=== PATIENT | female | born 1965 | race Caucasian/White ===

== ENCOUNTER → 2018-04-20 14:17 | Outpatient (CLI) | payer BC, SELFPAY ==
[2017-01-13 06:09] VITALS: BMI 19.8
[2018-04-26 13:20] LABS: HPV APTIMA, High Risk Negative (Negative)
--- OUTSIDE RECORDS SUMMARY | 2018-06-25 09:27 | XMS RPT_ITS ---
:1965 Author Organization OHIP Support Name Relationship Address Phone LORENZA CORNELL Unavailable [address] + [place] [address] UE Unavailable Unavailable Unavailable CORNELLLORENZA Unavailable [address] + [place] [address] CORNELLLORENZA Unavailable [address] [place] [address] NOT GIVEN Unavailable Unavailable Unavailable CORNELLLORENZA Unavailable [address] + [place], [place] [phone] LORENZA CORNELL Unavailable [address] Unavailable [place], [place] [phone] NOT GIVEN Unavailable Unavailable Unavailable CORNELLLORENZA Unavailable [address] + [place], [place] [phone] CORNELL LORENZA Unavailable [address] Unavailable [place], [place] [phone] NOT GIVEN Unavailable Unavailable Unavailable CORNELLLORENZA Unavailable [address] + [place], [place] [phone] CORNELL LORENZA Unavailable [address] Unavailable [place] [phone] NOT GIVEN Unavailable Unavailable Unavailable KRAIG LORENZA Unavailable [address] + [place], [place] [phone] CORNELL LORENZA Unavailable [address] Unavailable [place], [place] [phone] NOT GIVEN Unavailable Unavailable Unavailable Care Team Providers Name Role Phone DR LORENZA CORNELL Admitting Unavailable DR LORENZA CORNELL Attending Unavailable DR LORENZA CORNELL Primary Care Unavailable RHODA CORNELL MD Consulting Unavailable PROVIDER, UNKNOWN Consulting Unavailable PROVIDER, UNKNOWN Consulting Unavailable PROVIDER, UNKNOWN Consulting Unavailable DR LORENZA CORNELL Admitting Unavailable DR LORENZA CORNELL Attending Unavailable DR LORENZA CORNELL Primary Care Unavailable RHODA CORNELL MD Consulting Unavailable PROVIDER, UNKNOWN Consulting Unavailable PROVIDER, UNKNOWN Consulting Unavailable PROVIDER, UNKNOWN Consulting Unavailable CHELITA, DOUG PAC Admitting Unavailable CHELITA, DOUG PAC Attending Unavailable CHELITA, DOGU PAC Primary Care Unavailable RHODA CORNELL MD Consulting Unavailable PROVIDER, UNKNOWN Consulting Unavailable PROVIDER, UNKNOWN Consulting Unavailable PROVIDER, UNKNOWN Consulting Unavailable CHELITA, DOUG PAC Admitting Unavailable CHELITA, DOUG PAC Attending Unavailable CHELITA, DOUG PAC Primary Care Unavailable RHODA CORNELL MD Consulting Unavailable PROVIDER, UNKNOWN Consulting Unavailable PROVIDER, UNKNOWN Consulting Unavailable PROVIDER, UNKNOWN Consulting Unavailable HEATHER MANNING [facility] Admitting [facility]ending Unavailable HEATHER MANNING SUMMER Primary Care Unavailable RHODA CORNELL MD Consulting Unavailable PROVIDER, UNKNOWN Consulting Unavailable PROVIDER, UNKNOWN Consulting Unavailable PROVIDER, UNKNOWN Consulting Unavailable Kanwal Antoine Attending Unavailable PROBLEMS PROBLEMS DATE TYPE CONDITION / CODE ATTENDING STATUS SOURCE 04/26/2018 Unknown Z12.4 - Rosalinda Antoine Encounter for [facility] screening for Hospital malignant Repository neoplasm of cervix / Z12.4(ICD-10) 01/18/2018 Admitting Strain of left CHELITAPERIDOUG Active Eulalio Pomerene Diagnosis [facility] and tendon, Repository initial encounter / Z78952R(ICD-10) 01/18/2018 Principle Strain of left CHELITA, DOUG Active Eulalio Pomerene Diagnosis [facility] and tendon, Repository initial encounter / K56106J(ICD-10) PROCEDURES PROCEDURES No Procedure Records FoundRESULTS RESULTS PAP IG HPV APTIMA Collected: 04/20/2018 Status: F Source: RANDA [birth year] 10:00 AM [facility] REPOSITORY Order Comment: CYTOLOGY INFORMATION: - CLINICAL INFORMATION: - DATE LMP/MENOPAUSE: MENOPAUSE - COLLECTION VIAL: Thin Prep Vial - SUPERVISOR CONTINUOUS WELD PIPE MILL SOURCE: CERVICAL/ENDOCERVICAL - COLLECTION TECHNIQUE: BRUSH/SPATULA Specimen Comment: [id number] Specimen Comment: Source.............Cervix;Endocervix Specimen Comment: Other..............Post Menopausal Specimen Comment: No. of containers..01 ThinPrep Vial TYPE CODE TESTS RESULT OUT OF RANGE REFERENCE UNITS LAB L7400.0800 . Normal DIAGN Comment Result Comment: UNSATISFACTORY FOR EVALUATION. LAB L7400.0900 . Normal ADEQ Comment Result Comment: Specimen processed and examined but unsatisfactory for evaluation of epithelial abnormality because of insufficient cellularity. Specimen processed and examined, but unsatisfactory for evaluation of epithelial abnormality because of excessive lubricant. LAB L7400.1300 . Normal RECOMM Comment Result Comment: Suggest follow up as clinically appropriate. LAB L7400.1400 . Normal PERFORM Comment Result Comment: Rosibel Huff, Stoker Installation Mechanic (ASCP) LAB L7400.1500 . Normal QC Comment REV Result Comment: Jeannine Wolf, Supervisory Stoker Installation Mechanic (ASC) LAB L7400.2575 . Normal TEST METHOD Comment Result Comment: This liquid based ThinPrep(R) pap test was screened with the use of an image guided system. LAB L7400.2600 . Normal . COMM LAB L7400.2700 . Normal PAPSMR Comment Result Comment: The Pap smear is a screening test designed to aid in the detection of premalignant and malignant conditions of the uterine cervix. It is not a diagnostic procedure and should not be used as the sole means of detecting cervical cancer. Both false-positive and false-negative reports do occur. LAB L7400.2760 Negative Normal HPV APTIMA, Negative HR Result Comment: This test detects fourteen high-risk HPV types (16/18/31/33/35/39/45/ 51/52/56/58/59/66/68) without differentiation. Performed at: - [facility] [id number] Fur Finisher Tailor: Yessica Nova MD, Phone: [phone] Performed at: = - [facility] [address] [id number] Fur Finisher Tailor: Yessica Nova MD, Phone: [phone] Performed By: #### L7400.0280 #### [facility] (refer to report for specific site) refer to report for address and phone number MAMM DIGITAL LT SPOT Observed: 03/07/2018 Status: F Source: EULALIO MORGAN 8:35 AM [place] [address] Patient: KRAIG BATSHEVA JeffersMeghann Phone#: : 1965 Age: 52 Gender: F Pt. Type: Out Account: [id number] Location: Ordering: [facility] Exam Date: 03/07/2018/8:22 Family Phys: RHODA CORNELL Charge Code: [id number] Physician: [place] Order #: [id number] DLP Dose#: PROCEDURE: MAMM LT SPOT/MAG UNILAT DIGITAL WITH CAD COMPARISON: [facility], BILAT SCREENING, 10/20/2016, 11:05. [facility], BILAT SCREENING, 03/07/2018, 8:06. INDICATIONS: Abnormal mammogram BREAST COMPOSITION: Extremely dense, which may lower the sensitivity of mammography (>75% glandular). FINDINGS: DIAGNOSTIC CATEGORY 3--PROBABLY BENIGN FINDING. THE FOLLOWING FINDING(S) HAS A HIGH PROBABILITY OF A BENIGN ETIOLOGY: LEFT BREAST: FOCAL CALCIFICATIONS, characterized by coarse- heterogeneous mildly suspicious morphology, posterior depth, 3 o'clock position, and <5 in number, new from prior. RECOMMENDATIONS: SIX MONTH FOLLOW-UP DIAGNOSTIC MAMMOGRAM: LEFT BREAST. PLEASE NOTE: A NORMAL MAMMOGRAM DOES NOT EXCLUDE THE POSSIBILITY OF BREAST CANCER. A CLINICALLY SUSPICIOUS PALPABLE LUMP SHOULD BE BIOPSIED. THIS FACILITY UTILIZES A REMINDER SYSTEM TO ENSURE THAT ALL PATIENTS RECEIVE REMINDER LETTERS FOR APPOINTMENTS. THIS INCLUDES REMINDERS FOR ROUTINE MAMMOGRAMS, DIAGNOSITC MAMMOGRAMS, OR OTHER BREAST IMAGING INTERVENTIONS WHEN APPROPRIATE. THIS PATIENT WILL BE PLACED IN THE APPROPRIATE REMINDER SYSTEM. Dictated by: Destiny Zuñiga MD on 03/07/2018 at 11:20 Approved by: Destiny Zuñiga MD on 03/07/2018 at 14:13 MAMM DIGITAL BILAT Observed: 03/07/2018 Status: F Source: EULALIO MATT SCREEN 8:21 AM [place] [address] Patient: BATSHEVA CORNELL Phone#: : 1965 Age: 52 Gender: F Pt. Type: Out Account: [id number] Location: Ordering: [facility] Exam Date: 03/07/2018/8:06 Family Phys: RHODA CORNELL Charge Code: [id number] Physician: [place] Order #: [id number] DLP Dose#: PROCEDURE: MAMM BILAT DIGITAL SCREENING WITH CAD COMPARISON: [facility], BILAT SCREENING, 10/20/2016, 11:05. [facility], LT SPOT/MAG DIGITAL, 10/20/2016, 16:30. INDICATIONS: Screening BREAST COMPOSITION: Extremely dense, which may lower the sensitivity of mammography (>75% glandular). FINDINGS: DIAGNOSTIC CATEGORY 0--INCOMPLETE ASSESSMENT: NEED ADDITIONAL IMAGING EVALUATION. RIGHT BREAST: No significant suspicious finding. No significant change has occurred. LEFT BREAST: FOCAL CALCIFICATIONS, characterized by uncertain morphology, posterior depth, 3 o'clock position, and 5-10 in number, new from prior. RECOMMENDATIONS: ADDITIONAL MAMMOGRAPHIC VIEWS REQUIRED: LEFT BREAST. We will call the patient back for additional views and issue an addendum report. PLEASE NOTE: A NORMAL MAMMOGRAM DOES NOT EXCLUDE THE POSSIBILITY OF BREAST CANCER. A CLINICALLY SUSPICIOUS PALPABLE LUMP SHOULD BE BIOPSIED. THIS FACILITY UTILIZES A REMINDER SYSTEM TO ENSURE THAT ALL PATIENTS RECEIVE REMINDER LETTERS FOR APPOINTMENTS. THIS INCLUDES REMINDERS FOR ROUTINE MAMMOGRAMS, DIAGNOSITC MAMMOGRAMS, OR OTHER BREAST IMAGING INTERVENTIONS WHEN APPROPRIATE. THIS PATIENT WILL BE PLACED IN THE APPROPRIATE REMINDER SYSTEM. Dictated by: Destiny Zuñiga MD on 03/07/2018 at 11:19 Approved by: Destiny Zuñiga MD on 03/07/2018 at 11:19 FOOT COMPLETE RT Observed: 11/09/2017 Status: F Source: [facility] 7:13 AM [place] [address] Patient: BATSHEVA CORNELL Phone#: : 1965 Age: 52 Gender: F Pt. Type: Out Account: [id number] Location: Ordering: LORENZA CORNELL Exam Date: 11/09/2017/7:04 Family Phys: RHODA CORNELL Charge Code: [id number] Physician: [place] Order #: [id number] DLP Dose#: PROCEDURE: X-RAY FOOT RT COMPLETE MIN 3 VIEWS COMPARISON: None. INDICATIONS: Pain FINDINGS: BONES: Normal. No significant arthropathy or acute abnormality. SOFT TISSUES: Negative. No visible soft tissue swelling. EFFUSION: None visible. OTHER: Negative. CONCLUSION: No acute disease. Dictated by: Jenni Mcpherson MD on 11/09/2017 at 15:14 Approved by: Jenni Mcpherson MD on 11/09/2017 at 15:14 ALLERGIES ALLERGIES DATE TYPE / CODE NAME / CODE REACTION SEVERITY SOURCE 01/07/2017 Drug Sulfa Hives Unknown [facility] All[facility]/4160 (Sulfonamide Hospital 06040(SNOMED Antibiotics)/ Repository CT) [id number](RX NORM) 01/07/2017 Drug phenobarbital Swelling Unknown [facility] Allergy/4160 /[id number](R Hospital 92822(SNOMED XNORM) Repository CT) 01/07/2017 Drug prochlorperaz Other Unknown [facility] Allergy/4160 ine/[id number] Hospital 82680(SNOMED 8(RXNORM) Repository CT) 01/07/2017 Drug atropine/F006 Swelling Unknown [facility] Allergy/4160 222117(RXNORM [facility](SNOMED ) Repository CT) 01/07/2017 Drug hyoscyamine/F Swelling Unknown [facility] Allergy/4160 464361551(RXN Hospital 08004(SNOMED ORM) Repository CT) 01/07/2017 Drug scopolamine/F Swelling Unknown [facility] Allergy/4160 991035531([facility](SNOMED ORM) Repository CT) 01/07/2017 Drug clarithromyci Nausea Unknown [facility] Allergy/4160 n/[id number]( Hospital [address]2529(SNOMED RXNORM) Repository CT) Drug BIAXIN/929294 Moderate Eulalio Pomerene Allergy/4160 03(RXNORM) ([facility] [address](SNOMED Modifier) Repository CT) (Qualifier Value) Drug COMPAZINE/000 Moderate Eulalio Pomerene Allergy/4160 38545(RXNORM) ([place] [address](SNOMED Modifier) Repository CT) (Qualifier Value) ENCOUNTERS ENCOUNTERS ADMIT/DISCHARGE ACCOUNT ADMITTING ENCOUNTER LOCATION SOURCE NUMBER CLASS 04/20/2018 [id number] Ambulatory [facility] 0 [facility] ing:[facility] Repository 03/07/2018/ [id number] HEATHER MANNING Ambulatory [address] Repository 02/19/2018 [id number] CHELITA, Ambulatory [facility] Repository 01/18/2018/ [id number] CHELITA, Ambulatory [address] Repository 01/14/2018/ [id number] DR LORENZA CORNELL Ambulatory [address] Repository 11/09/2017/ [id number] DR LORENZA CORNELL Ambulatory [address] Repository PAYERS PAYERS ENCOUNTER GUARANTOR PAYER SUBSCRIBER SOURCE 04/20/2018 Batsheva [id number] Primary LORENZA [address] Insurance:[address], Number: [facility] [place] [address]Erw: [id number] Repository Date:[id number] () [address], [place] [address]XQ: 04/20/2018 Secondary NOT GIVENUNK [facility] Insurance:SELF PAY [facility] Number: Effective Repository Date:2018-04-20 03/07/2018 BATSHEVA MORFINOB: Primary Insurance:RESHMA LORENZA Agustín MORFINOB: Eulalio Pierretyson [id number] [address] [id number] [place] [address], Number: [address] [place] [address], Repository [place] [id number] [place] [id number]: Date:Plan Name:B2P [address] [place] [address]) [id number]: 02/19/2018 BATSHEVA KRUEGER: Primary Insurance:RESHMA Randolph NAVJOTOB: Eulalio Pierretyson [id number] [address] [id number] [address], Number: [address] [place] [address], Repository [place] [id number] [place] [id number]: Date:Plan Name:B2P [address]PA, [place] () [id number]: 01/18/2018 BATSHEVAGiovanny ENRIQUEZASHOB: Primary BATSHEVA MORFINOB: Eulalio Matt [id number] Insurance:ANTHKAROLINA JUSTICE [id number] [facility] [address] [employer]ER[address], [address], Repository [place] Number: [place] [id number]: [id number] Date:Plan Name:B2 () 01/14/2018 BATSHEVA Aury NAVJOTOB: Primary Insurance:RESHMA ENRIQUEZDDOB: Eulalio Matt [address] [id number] [facility] OUTPATIENTPolicy [address], Number: [address], Repository [place] [id number] [place] [id number]: Date:Plan Name:B2P [address]IGHTFZU, [place] () [id number]: 11/09/2017 BATSHEVA A NAVJOTOB: Primary Insurance:RESHMA ENRIQUEZDDOB: Eulalio Matt [address] [facility] [id number] [facility] OUTPATIENTPolic[address], Number: [address], Repository [place] [id number] [place] [id number]: Date:Plan Name:B2P [address]ILZVHOP, [place] () [id number]:
== END ==
PROVIDERS: Visit Provider Obstetrics & Gynecology
DX: Z12.4 Encounter for screening for malignant neoplasm of cervix (principal)
CPT/HCPCS: 87624; 88175; G0145

== ENCOUNTER → 2019-11-06 09:20 | Outpatient (CLI) | payer BC, SELFPAY ==
[2019-11-19 14:49] LABS: HPV APTIMA, High Risk POSITIVE; HPV Genotype 16, Aptima Negative; HPV Genotype 18,45 Aptima Negative
== END ==
PROVIDERS: Visit Provider Obstetrics & Gynecology
DX: Z12.4 Encounter for screening for malignant neoplasm of cervix (principal)
CPT/HCPCS: 87624; 88175; G0145

== ENCOUNTER → 2022-05-31 | Outpatient (CLI) | payer SELFPAY ==
[2022-06-04 13:32] LABS: HPV APTIMA, High Risk Negative (Negative)
== END | disposition home or self-care (01) ==
PROVIDERS: Visit Provider Student in an Organized Health Care Education/Training Program
DX: Z12.4 Encounter for screening for malignant neoplasm of cervix (principal)
CPT/HCPCS: 87624; 88175; G0145

== ENCOUNTER → 2022-06-24 | Outpatient (CLI) | payer SELFPAY ==
--- NOTE | 2022-06-24 | IMM_PTH ---
PATIENT: BATSHEVA CORNELL LOC: [facility] U#:[id number] AGE/SX: 56/F ROOM: RE06/24/[address]: Dr. Florencio Guy MD : 1965 BED: DIS: 06/24/2022 SPEC #: [id number] RECD: 06/28/22 12:36 STATUS: DAVID RERichard #: [id number] EMEKA: 06/24/22 00:[address]: Florencio Guy DEPT: IMMUNOHISTOCHEMISTRY RECD BY: Julisa Craft ENTERED: 06/28/22 12:38 SP TYPE: IMMUNO OTHR DR: MACARENA Pablo Tissues: A - Left breast, NOS Procedures: CALPONIN-1 (add) CK5-6 (add) CK8 (add) COOPER-2 (add) E-CAD (add) HER2 LENO (add) KI-67 (add) P53 (add) NE (add) P40 (add) ER (initial) PHYSICIAN & [address] [address] SPECIMEN INFORMATION: Tissue Source: A ? Left breast at 12 o?clock Clinical Info: Abnormal mammogram Specimen Number: [id number] CPT code: 63330, 54599 x7, 36407 x3 METHODOLOGY: Deparaffinized sections of prefer/formalin-fixed tissue or PAP/DQ stained slides are incubated with monoclonal/polyclonal antibodies/oligonucleotide probes. Localization is made via biotin free immunoperoxidase method. Appropriate controls are performed and reacted as expected. Results on target cell population are indicated in the following table: RESULTS: ANTIBODY / CLONE RESULT P53 (DO-7) positive, 85% Ki-67 (30-9) positive, 70% CK8 (50jhqlG70) positive CK5-6 (D5 & 1684) negative Calponin-1 (SS341Y) negative P40 (BC28) negative E-Cad (ECH-6) positive COOPER-2 (SP21) positive MORPHOMETRIC ANALYSIS ER (clone 6F11) 0% NE (clone 16/1E2) 0% Her-2Neu (clone CB11) 3+ The prognostic test for HER2 is performed on formalin-fixed paraffin embedded tissue. A 3+ (positive) staining pattern is defined as intense, homogeneous, complete, circumferential membranous staining in >10% of contiguous tumor cells. A similar weak (2+) staining pattern is interpreted as equivocal. DELBERT follow-up testing is recommended for all equivocal cases. Positivity/negativity for ER/NE is reported if > or < 1% of the tumor cells are immuno- reactive, respectively. The ASCO/CAP criteria is used for scoring. Reference: Journal of Clinical Oncology, 2013; 31:8120-4709 & 2010; 16:4819-8841. Duration of fixation: 75 Hrs; Sample Adequate: Yes. These assays have not been validated on decalcified tissues. Results should be interpreted with caution given the likelihood of false negativity on decalcified specimens. These tests were developed and their performance characteristics determined by [facility]. They may not have been cleared or approved by the U.S. Food and Drug Administration. The FDA has determined that such clearance or approval is not necessary. The above immunohistochemical/dualISH markers are ordered and reviewed by the Pathologist. INTERPRETATION: A. 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 Negative for estrogen receptors (unfavorable prognostic indicator). Negative for progesterone receptors (unfavorable prognostic indicator). Positive for overexpression of JNC9zxl. AM:ash 06/29/2022
--- NOTE | 2022-06-24 | BRBX_PTH ---
PATIENT: BATSHEVA CORNELL LOC: [facility]#:[id number] AGE/SX: 56/F ROOM: RE06/24/[address]: Dr. Florencio Guy MD : 1965 BED: DIS: 06/24/2022 SPEC #: [id number] RECD: 06/24/22 16:32 STATUS: DAVID RON #: [id number] EMEKA: 06/24/22 00:[address]: Florencio Guy DEPT: SURGICAL PATHOLOGY RECD BY: Tre Becerra ENTERED: 06/25/22 08:18 SP TYPE: BREAST BX OTHR DR: MACARENA Pablo Tissues: A - Left breast, NOS B - Left breast, NOS Procedures: Surgery Specimen Level IV HEADER OPERATION: Ultrasound-guided needle core biopsy left breast 12 o?clock and 9 o?clock position PRE-OP DIAGNOSIS: Abnormal mammogram TISSUE SUBMITTED: A ? Left breast tissue 12 o?clock position, B - Left breast tissue 9 o?clock position ISCHEMIC TIME: <1 minute FIXATION TIME: 75 hours MICROSCOPIC DIAGNOSIS A. Left breast at 12 o?clock, needle core biopsy: Invasive ductal carcinoma with the following characteristics: Nuclear grade ? 3 Maximal length ? 9.5 mm See comment. B. Left breast at 9 o?clock, needle core biopsy: Invasive ductal carcinoma with the following characteristics: Nuclear grade ? 3 Maximal length ? 11.0 mm AM:ash 06/28/2022 COMMENT A. Immunohistochemistry ([id number]) supports the above diagnosis. Case has been reviewed in consultation with Dr. So who concurs with the above diagnosis. IDC:SJ MICROSCOPIC DESCRIPTION Slides are reviewed. GROSS DESCRIPTION A - Received in fixative is one container labeled with the patient's name and designated left breast tissue 12 o'clock position. The specimen consists of multiple elongated fragments of wu-yellow fibroadipose tissue that in aggregate measure 1.0 x 0.5 x 0.1 cm. The entire specimen is submitted in one cassette. B - Received in fixative is one container labeled with the patient's name and designated left breast tissue 9 o'clock position. The specimen consists of one elongated fragment of wu-yellow fibroadipose tissue measuring 1.5 cm in length and 0.1 cm in diameter. The entire specimen is submitted in one cassette. / SJ:rg 06/25/2022 TC:0 CPT: 23021 x2
== END | disposition home or self-care (01) ==
PROVIDERS: PCP Physician Assistant; Referring Provider Surgery; Visit Provider Surgery
DX: R92.8 Other abnormal and inconclusive findings on diagnostic imaging of breast (principal)
CPT/HCPCS: 88305; 88341; 88342

== ENCOUNTER → 2022-06-29 | Outpatient (CLI) | payer SELFPAY ==
--- NOTE | 2022-06-29 10:58 | MRI_ITS ---
STUDY: BILATERAL BREAST MR WITHOUT AND WITH CONTRAST REASON FOR EXAM: Female, 56 years old. Abnormal left diagnostic mammogram and left breast ultrasound. TECHNIQUE: Multi-sequence multi-echo imaging of both breasts was performed with a dedicated breast coil. T1-weighted and T2-weighted images were performed before the administration of contrast. T1-weighted images were also performed after the intravenous administration of 13 mL of Clariscan contrast. COMPARISON: Diagnostic left mammogram dated June 23, 2022 and left breast ultrasound dated June 23, 2022. FINDINGS: RIGHT BREAST: Scattered fibroglandular densities with no background enhancement. No abnormal enhancing masses or areas of non-mass enhancement in the right breast. LEFT BREAST: Scattered background enhancement. Irregular enhancing mass in the upper medial aspect of the left breast measuring approximately 4.3 cm x 6 cm x 3 cm. Mass extends to the midportion of the medial aspect of the breast. 2 small enhancing masses beneath the major area of enhancement about 2 cm from the mass. Multiple small enhancing masses in the subareolar region, one of which is in the lateral aspect of the left breast measuring 1.4 cm x 8 mm x 1.4 centimeters. This lesion is also highly suspicious for tumor involvement. These findings are compatible with probable multicentric tumor. No enlarged or abnormal lymph nodes. No abnormality in the visualized regions of the chest or liver. MRI/Breast Bilateral W/O and W IMPRESSION: Multiple enhancing masses in the left breast in different quadrants compatible with multicentric tumor involvement. Right breast shows no abnormality and there is no adenopathy. CATEGORY: BIRADS Category 5: Highly Suggestive of Malignancy - Appropriate Action Should Be Taken. A letter regarding these results will be sent to the patient by the facility within 30 days. Electronically Signed: Kendall Torres, at 10:55 EDT ,
== END | disposition home or self-care (01) ==
PROVIDERS: PCP Physician Assistant; Referring Provider Surgery; Visit Provider Surgery
DX: N63.22 Unspecified lump in the left breast, upper inner quadrant (principal); R92.2 Inconclusive mammogram
CPT/HCPCS: 77049; A9575; A4216; C8908

== ENCOUNTER → 2022-07-02 | Outpatient (CLI) | payer SELFPAY ==
--- NOTE | 2022-07-02 09:19 | US_ITS ---
STUDY: SUPERFICIAL ULTRASOUND - LEFT AXILLARY REGION. REASON FOR EXAM: Female, 56 years old. STAGING LEFT BREAST CANCER -- LEFT AXILLA TECHNIQUE: A superficial ultrasound was performed with real-time and static mujica-scale imaging. COMPARISON: None. FINDINGS: Multiple lymph nodes are seen in the left axilla. All the lymph nodes have a central echogenic hilum with hypoechoic cortex suggestive of benign anatomical appearance. The largest lymph node measures 2.1 cm x 1.4 cm x 1.6 cm. With the patient''s history of left breast carcinoma, biopsy may be indicated. US/Ext Non Vasc Limited/Soft Tiss IMPRESSION: Multiple lymph nodes in the left axillary region. The larger measures 2.1 cm x 1.4 cm x 0.6 cm. Biopsy is recommended with a history of a left breast carcinoma. Electronically Signed: Tashi Ferguson MD at 14:54 EDT ,
== END | disposition home or self-care (01) ==
PROVIDERS: PCP Physician Assistant; Visit Provider Internal Medicine Hematology & Oncology
DX: C50.912 Malignant neoplasm of unspecified site of left female breast (principal)
CPT/HCPCS: 76882

== ENCOUNTER → 2022-07-06 | Outpatient (CLI) | payer SELFPAY ==
--- NOTE | 2022-07-06 | LYMN_PTH ---
PATIENT: BATSHEVA CORNELL [facility] U#:[id number] AGE/SX: 56/F ROOM: RE07/06/[address]: Dr. Florencio Guy MD : 1965 BED: DIS: 07/06/2022 SPEC #: [id number] RECD: 07/06/22 15:24 STATUS: DAVID RON #: [id number] EMEKA: 07/06/22 00:[address]: Florencio Guy DEPT: SURGICAL PATHOLOGY RECD BY: Yury Aguila ENTERED: 07/07/22 09:21 SP TYPE: LYMPH NODE OTHR DR: MACARENA Pablo Tissues: LYMPH NODE BIOPSY Procedures: Surgery Specimen Level IV HEADER OPERATION: Left axillary lymph node biopsy PRE-OP DIAGNOSIS: Enlarged left axillary lymph node TISSUE SUBMITTED: Left axillary lymph node tissue MICROSCOPIC DIAGNOSIS Left axillary lymph node tissue, core biopsy: Lymph node tissue, negative for metastatic carcinoma. See comment. SJ:ash 07/08/2022 COMMENT Immunohistochemistry ([id number]) supports the above diagnosis. Please make reference to previous specimen ([id number]) left breast at 12 o?clock, needle core biopsy with diagnosis of ?invasive ductal carcinoma? and left breast at 9 o?clock, needle core biopsy with diagnosis of ?invasive ductal carcinoma.? MICROSCOPIC DESCRIPTION Slides are reviewed. GROSS DESCRIPTION Received in saline and then postfixed is one container labeled with the patient's name and designated left axillary lymph node. The specimen consists of multiple elongated fragments of wu soft tissue that in aggregate measure 1.0 x 0.5 x 0.1 cm. The specimen is totally submitted in one cassette. / MERT:ash 07/07/2022 TC:5 CPT: 16648
--- NOTE | 2022-07-06 | IMM_PTH ---
PATIENT: BATSHEVA CORNELL LOC: [facility] U#:[id number] AGE/SX: 56/F ROOM: RE07/06/[address]: Dr. Florencio Guy MD : [id number] BED: DIS: 07/06/2022 SPEC #: [id number] RECD: 07/08/22 13:28 STATUS: JHONYOsmel RERichard #: [id number] EMEKA: 07/06/22 00:[address]: Florencio Guy DEPT: IMMUNOHISTOCHEMISTRY RECD BY: Julisa Craft ENTERED: 07/08/22 13:29 SP TYPE: IMMUNO OTHR DR: MACARENA Pablo Tissues: Axillary lymph node, NOS Procedures: CK7 (add) Pankeratin (initial) PHYSICIAN & INSTITUTION [place] [id number] SPECIMEN INFORMATION: Tissue Source: Left axillary lymph node tissue Clinical Info: Enlarged left axillary lymph node Specimen Number: [id number] CPT code: 73239, 67155 METHODOLOGY: Deparaffinized sections of prefer/formalin-fixed tissue or PAP/DQ stained slides are incubated with monoclonal/polyclonal antibodies/oligonucleotide probes. Localization is made via biotin free immunoperoxidase method. Appropriate controls are performed and reacted as expected. Results on target cell population are indicated in the following table: RESULTS: ANTIBODY / CLONE RESULT AE1-3 (AE1/AE3/PCK26) negative CK7 (OV-TL12/30) negative These tests were developed and their performance characteristics determined by [facility]. They may not have been cleared or approved by the [place]. Food and Drug Administration. The FDA has determined that such clearance or approval is not necessary. The above immunohistochemical/dualISH markers are ordered and reviewed by the Pathologist. INTERPRETATION: Left axillary lymph node tissue, biopsy: Lymph node tissue, negative for metastatic carcinoma. MERT:ash 07/09/2022
== END | disposition home or self-care (01) ==
LOC: LABSPEC 16:27
PROVIDERS: PCP Physician Assistant; Referring Provider Surgery; Visit Provider Surgery
DX: R59.9 Enlarged lymph nodes, unspecified (principal)
CPT/HCPCS: 88305; 88341; 88342

== ENCOUNTER 2022-07-09 09:20 | Day surgery (SDC) | payer SELFPAY ==
--- NOTE | 2022-07-06 07:43 | EKG12_ITS ---
Test Reason : PREOP Blood Pressure : / mmHG Vent. Rate : 050 BPM Atrial Rate : 050 BPM P-R Int : 162 ms QRS Dur : 088 ms QT Int : 444 ms P-R-T Axes : 014 049 046 degrees QTc Int : 404 ms Sinus bradycardia with sinus arrhythmia Otherwise normal ECG Confirmed by ML GUEVARA, YULIYA ([id number]), multimedia editor EMELIA KEMP ([id number]) on 07/07/2022 9:56:05 AM Referred By: CUATE Confirmed By:ANDREW BULL MD
[2022-07-09] VITALS (7 sets, daily range): BP systolic 113–136; BP diastolic 76–90; PULSE 57–71; RESP 12–20; TEMP 36.5–36.8; O2SAT 96–100; BMI 20.4
[2022-07-09] MEDS: Lactated Ringers 1,000 ML 15 ML IV (09:50)
--- NOTE | 2022-07-09 10:50 | HP.PCM_ITS ---
History and Physical Date of Admission: 07/09/22 Visit Reasons:?lymph node biopsy Chief Complaint: lymph node biopsy Is patient in pain?: No Allergies atropine [From ] Allergy (Verified 07/06/22 15:11) Swellinghyoscyamine [From ] Allergy (Verified 07/06/22 15:11) Swellingphenobarbital [From ] Allergy (Verified 07/06/22 15:11) Swellingscopolamine [From ] Allergy (Verified 07/06/22 15:11) SwellingSulfa (Sulfonamide Antibiotics) Allergy (Verified 07/06/22 15:11) Hivesclarithromycin [From Biaxin] Adverse Reaction (Verified 07/06/22 15:11) Nauseaprochlorperazine [From Compazine] Adverse Reaction (Verified 07/06/22 15:11) Other Medications aspirin 81 mg tablet,delayed release (Lo-Dose Aspirin) 81 mg PO DAILY 01/07/17 [History Confirmed 07/06/22] calcium carbonate 600 mg calcium (1,500 mg) tablet 600 mg PO DAILY 01/07/17 [History Confirmed 07/06/22] rosuvastatin 5 mg tablet (Crestor) 5 mg PO DAILY 01/07/17 [History Confirmed 07/06/22] cholecalciferol (vitamin D3) 50 mcg (2,000 unit) capsule 50 mcg PO DAILY 06/30/22 [History Confirmed 07/06/22] coenzyme Q10 100 mg capsule (CoQ-10) 100 mg PO DAILY 06/30/22 [History Confirmed 07/06/22] riboflavin (vitamin B2) 100 mg tablet 100 mg PO DAILY 06/30/22 [History Confirmed 07/06/22] dexamethasone 4 mg tablet 4 mg PO DAILY #12 tabs 07/06/22 [Rx Confirmed 07/06/22] lidocaine-prilocaine 2.5 %-2.5 % topical cream 1 applic topical ONCE PRN PORT ACCESS 30 days #30 grams 07/06/22 [Rx Confirmed 07/06/22] ondansetron 8 mg disintegrating tablet 8 mg PO Q8H PRN nausea and vomiting #30 tabs 07/06/22 [Rx Confirmed 07/06/22] PFSH Medical History?(Updated 07/06/22 @ 15:[address] Florencio Guy MD) Abnormal mammogram of left breast Abnormal ultrasound of breast Breast cancer, left Dyslipidemia Encounter for education Herniated disc History of IBS History of stress test Non-smoker PONV (postoperative nausea and vomiting) Post-menopausal Surgical History? History of colonoscopy History of D&C Hx of tubal ligation S/P left breast biopsy Family History? Sister Colon cancer,? Onset Age: 42Mother Heart disease Kidney disease Lupus High cholesterolFather High cholesterol Hypertension Thyroid disorder Heart diseaseBrother Heart diseaseAunt Diabetes ?? ? maternal Social History? household members:? 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 Never smoker alcohol intake:? never substance use type:? does not use HPI HPI HPI: Patient had a bilateral breast MRI extensive multifocal extensive disease of the left breast.? She also had a soft tissue ultrasound of the left axilla.? She presents today because the soft tissue ultrasound of July 02 demonstrates multiple lymph nodes of the left axilla with the largest being 2.1 cm.? Biopsy was recommended. [employer] Coordinator Required: No Is patient in pain?: No Allergies atropine [From ] Allergy (Verified 06/29/22 14:51) Swellinghyoscyamine [From ] Allergy (Verified 06/29/22 14:51) Swellingphenobarbital [From ] Allergy (Verified 06/29/22 14:51) Swellingscopolamine [From ] Allergy (Verified 06/29/22 14:51) SwellingSulfa (Sulfonamide Antibiotics) Allergy (Verified 06/29/22 14:51) Hivesclarithromycin [From Biaxin] Adverse Reaction (Verified 06/29/22 14:51) Nauseaprochlorperazine [From Compazine] Adverse Reaction (Verified 06/29/22 14:51) Other Medications aspirin 81 mg tablet,delayed release (Lo-Dose Aspirin) 81 mg PO DAILY 01/07/17 [History Confirmed 06/29/22] calcium carbonate 600 mg calcium (1,500 mg) tablet 600 mg PO DAILY 01/07/17 [History Confirmed 06/29/22] rosuvastatin 5 mg tablet (Crestor) 5 mg PO DAILY 01/07/17 [History Confirmed 06/29/22] PFSH Medical History?(Updated 06/29/22 @ 15:18 by Kathia Booth) Breast cancer Surgical History? Hx of tubal ligation S/P left breast biopsy Family History? Sister Heart disease High cholesterol Kidney disease LupusMother Heart disease Kidney disease Lupus High cholesterolFather High cholesterol Hypertension Thyroid disorder Social History? Smoking Status:? Never smoker HPI HPI HPI: 56-year-old female returns today to discuss left breast needle core biopsy 12 o'clock position and 10 o'clock position.? As noted below both biopsy sites demonstrated invasive ductal carcinoma nuclear grade 3.? Estrogen receptor negative.? Progesterone receptor negative.? HER2/ayan 3+. MICROSCOPIC DIAGNOSIS A.? Left breast at 12 o?clock, needle core biopsy: ?Invasive ductal carcinoma with the following characteristics: ?? ? Nuclear grade ? 3 ?? ? Maximal length ? 9.5 mm ?See comment.? B.? Left breast at 9 o?clock, needle core biopsy: ?Invasive ductal carcinoma with the following characteristics: ?? ? Nuclear grade ? 3 ?? ? Maximal length ? 11.0 mm RESULTS:?ANTIBODY / CLONE ? RESULT P53? (DO-7) ? positive, 85% Ki-67? (30-9)? positive, 70% CK8? ([id number])? positive CK5-6? (D5 & 1684) ? ? negative Calponin-1 (QH490J) ? ? ? negative P40? (BC28) ? negative E-Cad? (ECH-6) ? ? ? positive COOPER-2? (SP21) ? positive ? MORPHOMETRIC ANALYSIS? ? ER (clone [id number])? 0% W[place] (clone 16/1E2) ? 0% Her-2Neu (clone CB11)? 3+ My previous note of June 24, 2022 represents the following Visit Reasons:?Birads 5 Left Breast Chief Complaint: birads 5 left breast/b Is patient in pain?: No Allergies atropine [From ] Allergy (Verified 06/24/22 15:27) Swellinghyoscyamine [From ] Allergy (Verified 06/24/22 15:27) Swellingphenobarbital [From ] Allergy (Verified 06/24/22 15:27) Swellingscopolamine [From ] Allergy (Verified 06/24/22 15:27) SwellingSulfa (Sulfonamide Antibiotics) Allergy (Verified 06/24/22 15:27) Hivesclarithromycin [From Biaxin] Adverse Reaction (Verified 06/24/22 15:27) Nauseaprochlorperazine [From Compazine] Adverse Reaction (Verified 06/24/22 15:27) Other Medications aspirin 81 mg tablet,delayed release (Lo-Dose Aspirin) 81 mg PO DAILY 01/07/17 [History Confirmed 06/24/22] calcium carbonate 600 mg calcium (1,500 mg) tablet 600 mg PO DAILY 01/07/17 [History Confirmed 01/07/17] rosuvastatin 5 mg tablet (Crestor) 5 mg PO DAILY 01/07/17 [History Confirmed 06/24/22] PFSH Surgical History?(Updated 06/24/22 @ 15:22 by Carina Crystal) Hx of tubal ligation Family History?(Updated 06/24/22 @ 15:25 by Carina Crystal) Sister Heart disease High cholesterol Kidney disease LupusMother Heart disease Kidney disease Lupus High cholesterolFather High cholesterol Hypertension Thyroid disorder Social History? Smoking Status:? Never smoker HPI HPI HPI: 56-year-old female is being referred by Dr. France Luevano for surgical consultation regarding abnormal breast mammogram and ultrasound findings.? Written copy of my surgical consult recommendations will return to her. On May 31, 2022 the patient had her annual gynecologic exam. A0.? Menarche at age 11.? First child was born when she was 22.? She did breast-feed.? No estrogen replacement.? No history of previous breast biopsy.? No family history of breast cancer. She herself is not able to palpate any masses. She otherwise is extraordinarily healthy does physical exercise and workouts almost daily. Most recent previous mammogram was 2020.? Menopause at age 51. Recent clinical breast exam was not remarkable. The patient does have a history of a sister who had colon cancer in her 40s. At [facility] on June 23, 2022 she had bilateral screening mammography.? Interpreted as BI-RADS Category 5 the breast were noted to be very dense.? The right breast was felt to be unremarkable.? The left breast had focal calcifications mid left breast 9 o'clock position.? A four-quadrant left breast ultrasound was performed on June 23, 2022.? At the 12 o'clock position there is an 8 x 7 x 10 mm sized solid nodule with calcifications felt to be suspicious. Left breast solid suspicious nodule 9 o'clock position 28 x 18 x 12 mm with calcifications felt to correlate with the mammographic findings Left breast 12 o'clock position 4 x 3 x 5 mm simple cyst Left breast solid suspicious appearing lesion 9 o'clock position 4 x 7 x 2 mm. Personally reviewed the images.? The mammograms quite dense.? The lesions identified on ultrasound much more dramatic.? There is miss labeling of the ultrasound pictures discussing right radial positioning and this was a left breast ultrasound. ROS General General: No weight change, appetite, fatigue, colon cancer, breast cancer or weakness HEENT HEENT: No difficulty swallowing, eye injury, eye surgery, swollen glands or hoarseness Endo Endocrine: No thyroid disease, diabetes mellitus, thyroid cancer, Hair loss, heat intolerance or cold intolerance Skin Skin: No rash or changing moles Breast Breast: No left breast lump, right breast lump, nipple discharge, breast pain, abnormal mammogram, abnormal US or breast enlargement Musc Musculoskeletal: No back problems, arthritis, rheumatoid arthritis, gout or joint pain Cardio Cardiovascular: No murmur, pacemaker, heart disease, atrial fibrillation, high blood pressure, heart attack, heart stent, palpitations, shortness of breat with exertion or chest pain Psych Psychiatric: No depression, anxiety or hearing voices Resp Respiratory: No shortness of breath, No sleep apnea, No cough, No COPD, No asthma, No emphysema and No wheezing Gastro Gastrointestinal: No abdominal pain, No nausea or vomiting, No diarrhea, No constipation, No blood in stool, No acid reflux, No hemorrhoids, No ulcers, No gallbladder problem and No black,tarry stools Ten Hematologic: No blood thinners, No blood disorders, No bleeding, No anemia and No blood clots Neuro Neurologic: No system reviewed and no additional complaints, except as documented, No as per HPI, No abnormal gait, No abnormal hearing, No abnormal movements, No abnormal speech, No behavioral changes, No burning sensations, No confusion, No convulsions, No disequilibrium, No dizziness, No localized weakness, No frequent falls, No headache(s), No lack of coordination, No loss of vision, No memory loss, No numbness, No other visual disturbances, No radicular pain, No restless legs, No sensory deficit, No syncope, No tingling, No tremor(s), No weakness and No other Exam Const General: cooperative, healthy appearing, comfortable and no acute distress Nutritional Appearance: average body habitus Orientation: alert, awake and oriented x3 HENMT Head: normal to inspection Eyes General: appearance normal, both eyes and all related structures Neck Neck: normal visual inspection Chest Chest palpation & inspection: normal inspection of the chest Other: Right breast: No focal mass.? No nipple discharge.? Diffuse fibrous change particularly in the upper outer quadrant.? No axillary or clavicular adenopathy Left breast: Nondescript fibrous mass 10 o'clock position upper inner left breast periareolar.? No nipple discharge no skin distortion.? Diffuse fibrous change upper outer quadrant left breast.? No axillary or clavicular adenopathy appreciated Resp Effort & Inspection: normal respiratory effort Auscultation: clear to auscultation bilaterally Cardio Rate: regular rate Rhythm: regular rhythm GI Palpation: soft and no hepatosplenomegaly Auscultation: normal bowel sounds Musc Cervical Spine: normal cervical lordosis Skin General: no rashes or lesions noted Neuro General: patient alert, patient awake and patient oriented x3 Cognition: normal cognition Extrem General: no calf tenderness Office Procedures Biopsy Provider Documentation Ultrasound-guided needle core biopsy left breast 12 o'clock position 3 cm Ultrasound-guided needle core biopsy left breast 10 o'clock position +2 cm Timeout informed consent was obtained.? The patient taken the procedure room placed upon the table.? A left shoulder roll was placed.? The left breast was copiously prepped with Betadine.? Under ultrasound guidance what I felt was the 12:00 lesion measuring approximately the 8 x 7 x 10 m size with calcifications in it.? I utilized 1% lidocaine mixed 50-50 with 0.5% Marcaine a total of 6 cc.? Small stab incision was created.? A 14-gauge Monopty needle was advanced to prefire depth.? Pre and post fire films were obtained.? 3 cores were obtained.? A ribbon marking clip was placed at 12 o'clock position.? Pressure was held for hemostasis which was achieved I then inspected the left breast 10 o'clock position rather than the 9 o'clock position identified the sizable irregular mass with microcalcifications at that location.? 1% lidocaine mixed 50-50 with 0.5% Marcaine was used as local anesthetic.? 10 cc was used.? A small stab incision was created.? A 14-gauge Monopty needle was advanced to depth.? A single core was obtained.? A coil clip was placed at this 10 o'clock position.? Pressure was held for hemostasis. Each area was treated with Steri-Strip Telfa OpSite.? She tolerated procedure well no apparent complication.? The specimens upon obtaining them were immediately transmitted to formalin for analysis. Biopsy Breast Biopsy: [id number] US Guidance (x2) Procedure Time Out Time Out Informed consent given: Yes Consent signed: Yes Time out checklist: patient, procedure, site marked/identified, positioning of patient, supplies available, allergies confirmed and team agrees on procedure Time out staff in room: Yes Time out verified: Yes Time out date: 06/24/22 Time out time: 15:33 Assessment and Plan Assessment and Plan (1) Abnormal mammogram of left breast: ?Status:?Acute (2) Abnormal ultrasound of breast: ?Status:?Acute ?Plan: 56-year-old female.? BI-RADS 5 left breast ultrasound/mammogram.? A total of 4 items are identified with 2 being suspicious.? 2 areas of concern being at 12:00 and very concerning at what is said to be 9:00 but I measured out to be at 10:00.? Biopsy samples have been obtained.? It is of note that on mammogram the 2 densities are not clearly visualized and were only identified truly with ultrasound.? The patient has extraordinarily dense breasts bilaterally and certainly is at risk for having additional lesions bilaterally. I recommended the patient that we obtain breast MRI. I have additionally discussed with the patient my concerns regarding potential findings.? She is aware that we will want to obtain medical oncology consultation and likely radiation oncology consultation.? We will await pathology and I will have her return next week to review results and further recommendations. I appreciate the opportunity of assisting with the surgical care.? We did provide activity and wound care instructions. Copy: Dr. France Luevano and BOYD Dong M.D., F.A.C.S Assessment and Plan Assessment and Plan (1) Breast cancer: ?Status:?Acute ?Plan: With the patient's present we had discussion regarding treatment options.? We discussed the team approach involving surgeon and medical oncologist and radiation oncologist.? We discussed the potential multifocality of this lesion although the MRI is still pending. We discussed left total mastectomy with sentinel lymph node biopsy.? We touched upon prophylactic right mastectomy.? We discussed no reconstruction or immediate reconstruction or delayed reconstruction.? We additionally discussed potential placement of the port to facilitate neoadjuvant therapy. She has had an opportunity to ask and have questions answered.? She did mention potentially seeking referral to a tertiary center in the [facility] in [place].? She was assured that we could assist with that at her discretion.? I thought that it would be reasonable and feasible to get a oncology appointment locally to see how she fared with that information and then she can decide how she would like to proceed from there. Both she and her have had an opportunity ask and have questions answered.? They have been provided hard copies of the pathology report.? They are aware that the interpretation of the MRI is pending. Further surgical follow-up will be pending the patient's needs and desires.? I appreciate the opportunity of assisting with her surgical care Copy: BOYD Dong M.D., F.A.C.S June 29, 2022 STUDY: ? BILATERAL BREAST MR WITHOUT AND WITH CONTRAST REASON FOR EXAM: ? Female, 56 years old. ? Abnormal left diagnostic mammogram and left breast ultrasound. TECHNIQUE: ? Multi-sequence multi-echo imaging of both breasts was performed with a dedicated breast coil.? T1-weighted and T2-weighted images were performed before the administration of contrast.? T1-weighted images were also performed after the intravenous administration of 13 mL of Clariscan contrast. COMPARISON:? ? Diagnostic left mammogram dated June 23, 2022 and left breast ultrasound dated June 23, 2022. FINDINGS: RIGHT BREAST: Scattered fibroglandular densities with no background enhancement. No abnormal enhancing masses or areas of non-mass enhancement in the right breast. LEFT BREAST: Scattered background enhancement. Irregular enhancing mass in the upper medial aspect of the left breast measuring approximately 4.3 cm x 6 cm x 3 cm. Mass extends to the midportion of the medial aspect of the breast. 2 small enhancing masses beneath the major area of enhancement about 2 cm from the mass. Multiple small enhancing masses in the subareolar region, one of which is in the lateral aspect of the left breast measuring 1.4 cm x 8 mm x 1.4 centimeters. This lesion is also highly suspicious for tumor involvement. These findings are compatible with probable multicentric tumor. No enlarged or abnormal lymph nodes. No abnormality in the visualized regions of the chest or liver. MRI/Breast Bilateral W/O and W IMPRESSION: Multiple enhancing masses in the left breast in different quadrants compatible with multicentric tumor involvement. ? Right breast shows no abnormality and there is no adenopathy. ? ? CATEGORY: BIRADS Category 5:? Highly Suggestive of Malignancy - Appropriate Action Should Be Taken.? A letter regarding these results will be sent to the patient by the facility within 30 days. ? Electronically Signed: Kendall Torres, at 10:55 EDT , July 02, 2022 STUDY: ? SUPERFICIAL ULTRASOUND -? LEFT AXILLARY REGION. REASON FOR EXAM: ? Female, 56 years old.? STAGING LEFT BREAST CANCER -- LEFT AXILLA TECHNIQUE: ? A superficial ultrasound was performed with real-time and static mujica-scale imaging. COMPARISON: ? None. FINDINGS: Multiple lymph nodes are seen in the left axilla. All the lymph nodes have a central echogenic hilum with hypoechoic cortex suggestive of benign anatomical appearance. The largest lymph node measures 2.1 cm x 1.4 cm x 1.6 cm. With the patient''s history of left breast carcinoma, biopsy may be indicated. US/Ext Non Vasc Limited/Soft Tiss IMPRESSION: Multiple lymph nodes in the left axillary region. The larger measures 2.1 cm x 1.4 cm x 0.6 cm. Biopsy is recommended with a history of a left breast carcinoma. ? Electronically Signed: Tashi Ferguson MD at 14:54 EDT Reading Location ID and State: [id number] / [place] ROS General General: No weight change, appetite, fatigue, colon cancer, breast cancer or weakness HEENT HEENT: No difficulty swallowing, eye injury, eye surgery, swollen glands or hoarseness Endo Endocrine: No thyroid disease, diabetes mellitus, thyroid cancer, Hair loss, heat intolerance or cold intolerance Skin Skin: No rash or changing moles Breast Breast: No left breast lump, right breast lump, nipple discharge, breast pain, abnormal mammogram, abnormal US or breast enlargement Musc Musculoskeletal: No back problems, arthritis, rheumatoid arthritis, gout or joint pain Cardio Cardiovascular: No murmur, pacemaker, heart disease, atrial fibrillation, high blood pressure, heart attack, heart stent, palpitations, shortness of breat with exertion or chest pain Psych Psychiatric: No depression, anxiety or hearing voices Resp Respiratory: No shortness of breath, No sleep apnea, No cough, No COPD, No asthma, No emphysema and No wheezing Gastro Gastrointestinal: No abdominal pain, No nausea or vomiting, No diarrhea, No constipation, No blood in stool, No acid reflux, No hemorrhoids, No ulcers, No gallbladder problem and No black,tarry stools Ten Hematologic: No blood thinners, No blood disorders, No bleeding, No anemia and No blood clots Neuro Neurologic: No system reviewed and no additional complaints, except as documented, No as per HPI, No abnormal gait, No abnormal hearing, No abnormal movements, No abnormal speech, No behavioral changes, No burning sensations, No confusion, No convulsions, No disequilibrium, No dizziness, No localized weakness, No frequent falls, No headache(s), No lack of coordination, No loss of vision, No memory loss, No numbness, No other visual disturbances, No radicular pain, No restless legs, No sensory deficit, No syncope, No tingling, No tremor(s), No weakness and No other Office Procedures Biopsy Provider Documentation Ultrasound guided needle core biopsy left axillary lymph node Timeout informed consent was obtained.? The patient taken procedure room placed on the table left shoulder was placed the left axilla was copiously prepped with Betadine ultrasound was performed and I felt that the enlarged lymph node that its been seen on preintervention imaging was identified.? Under ultrasound guidance 1% lidocaine mixed 50-50 with 0.5% Marcaine was used as local anesthetic.? A total of 8 cc was used.? Small stab incisions created.? For continued Monopty needle was advanced to prefire depth.? Pre and post fire films were obtained.? 3 cores were obtained.? It is of note that subsequent to the first quarter being obtained the imaging appeared a little smeared and it was challenging to remain identified on the lymph node.? Patient tolerated the procedure very well there was little to no discomfort.? Cores were immediately placed in formalin.? A marking clip was left in position.? Pressure was held for hemostasis and hemostasis was nicely intact with minimal blood loss.? Sterile dressings applied she was given activity and wound care instructions. Florencio Guy M.D., F.A.C.S. Biopsy Breast Biopsy: [id number] US Guidance Procedure Time Out Time Out Informed consent given: Yes Consent signed: Yes Time out checklist: patient, procedure, site marked/identified, positioning of patient, supplies available, allergies confirmed and team agrees on procedure Time out staff in room: Yes Time out verified: Yes Time out date: 07/06/22 Time out time: 14:50 Assessment and Plan Assessment and Plan (1) Adenopathy: ?Status:?Acute ?Plan: Left axillary adenopathy.? Needle core biopsy under ultrasound guidance performed although this was technically demanding.? Pathology pending. The patient is additionally scheduled for July 09, 2022 to have a right internal jugular port placed to facilitate neoadjuvant chemotherapy.? She has had an opportunity to ask and have questions answered.? We will proceed as noted. Copy: Dr. Davian Polo and BOYD Dong M.D., F.A.C.S. Plan Copy:Justyna Guy M.D., F.A.C.S. The patient presents today for port placement to facilitate chemotherapy. It is of note that the left axillary lymph node biopsy demonstrated lymph node tissue and was negative for metastatic disease. I anticipate placing a 6 Cymraes PowerPort. Anticipate right internal jugular vein if need be subclavian. She is aware of technique, benefit, risk, alternatives Ventralex proceed as noted. Florencio Guy M.D., F.A.C.S.
--- NOTE | 2022-07-09 10:52 | DCINST_ITS ---
Discharge Instructions Procedure Port-A-Cath Diet Discharge Diet: No restrictions (Pain medication may cause nausea. You should typically eat light foods as you take your pain medication.) Activity Discharge Activity: Return to Normal Activity and May Shower (Leave the bandage on for 2-3 days. When you remove the bandage, leave the steri-strips intact until they fall off.) Additional Activity Instructions:: May not drive, work with heavy equipment, or sign legal documents for [address]. [address] if you are no longer taking narcotic pain medications. You may drive when you are no longer taking pain medications. Dressing / Incision Additional Dressing/Incision Instructions:: Leave the bandage on for 2-3 days. When you remove the bandage, leave the steri-strips intact until they fall off. Follow Up Care When: For any questions or difficulties please call [phone] Florencio Guy M.D., F.A.C.S. Test Results: Test results from this visit will be discussed in further detail at your follow- up appointment, if applicable. Discharge Plan Admission Attending Provider: Florencio Guy Primary Care Provider: Justyna Lopez Discharge Orders/Prescriptions Prescriptions: No Action cholecalciferol (vitamin D3) 50 mcg (2,000 unit) capsule 50 mcg PO DAILY riboflavin (vitamin B2) 100 mg tablet 100 mg PO DAILY coenzyme Q10 [CoQ-10] 100 mg capsule 100 mg PO DAILY dexamethasone 4 mg tablet 4 mg PO DAILY Qty: 12 5RF Rx Instructions: Take 8 mg twice daily the day before, the day of, and the day after chemotherapy ONLY ondansetron 8 mg tablet,disintegrating 8 mg PO Q8H PRN (Reason: nausea and vomiting) Qty: 30 1RF lidocaine-prilocaine 2.5-2.5 % cream 1 applic topical ONCE PRN (Reason: PORT ACCESS) 30 Days Qty: 30 2RF aspirin [Lo-Dose Aspirin] 81 MG tablet,delayed release (DR/EC) 81 mg PO DAILY Label Comments: WAS TOLD TO ASK ABOUT STOPPING calcium carbonate 600 MG tablet 600 mg PO DAILY Label Comments: SUPPLEMENT rosuvastatin [Crestor] 5 MG tablet 5 mg PO DAILY Label Comments: CHOLESTEROL Referrals / Follow Up: Justyna Lopez, PA [Primary Care Provider] - Disposition Disposition (needs filled in before D/C Order can be placed): Home, Self Care
[2022-07-09] MEDS: Cefazolin 2 GM in 0.9% Normal Saline 100 ML IV (11:02)
[2022-07-09] MEDS: Lidocaine 1% (20 ml mdv) 20 ML Vial (11:17)
--- NOTE | 2022-07-09 11:38 | PCM.OPRPT ---
Report of Operation Date of Procedure: 07/09/22 Pre-Operative Diagnosis: Left breast cancer Post-Operative Diagnosis: Same Surgery/Procedure Performed:: Right internal jugular 6 [place] PowerPort placement Reference [id number], lot [id number], expiry date 02/01/2023 Description of Surgical Findings:: Timeout informed consent was obtained. 56-year-old female was taken to the operating room placed Sub on the table underwent monitored anesthesia care. Ancef 2 g were given intravenously. The right neck and chest were sterilely prepped and draped. 1% lidocaine mixed 50-50 with 0.5% Marcaine was used as a local anesthetic. A total of 2090 cc was used. The right neck was inspected and the internal jugular vein is identified. Under ultrasound guidance local was instilled then a micropuncture needle inserted and a micropuncture wire inserted. Local was instilled down upon the right chest wall midclavicular line second intercostal space. Transverse incision was created and electrocautery was used to make a subcutaneous pocket. The tubing was tunneled from the neck to the chest. A sheath dilator was placed over a micropuncture wire the dilator wire removed and was upgraded to a J-wire. Then with fluoroscopy confirmation sheath dilator was placed. The dilator and wire removed the catheter was Szymanski through the sheath the sheath was split the catheter was then positioned at the SVC atrial junction it was amputated length connected to the port secured with a port attachment device. The port was placed in the pocket secured there with 2-0 silk. The port site was closed interrupted 3-0 Vicryl subdermal stitch is. Neck site was closed interrupted 5-0 Vicryl subdermal stitch. Steri-Strips Telfa OpSite dressings applied. The port was accessed it aspirated easily it was flushed with saline and then 2 cc of heparinized saline. Specimen none. Drains none. Blood loss minimal. The patient tolerated the procedure well and was taken to the recovery room in satisfactory condition. Stat portable checks x-ray pending. Florencio Guy M.D., F.A.C.S. Surgeon: Florencio Guy Type of Anesthesia: Local MAC Anesthesiologist: Luis Dickson
--- NOTE | 2022-07-09 11:54 | RAD_ITS ---
STUDY: X-RAY CHEST REASON FOR EXAM: Female, 56 years old. Portacatheter placement TECHNIQUE: Single AP portable view of the chest. COMPARISON: None. FINDINGS: A right-sided brett catheter has been placed with the tip at the junction of the superior vena cava and right atrium. EKG electrodes are seen. Hyperinflation. The lungs are clear. There is no demonstrated pleural abnormality. Normal size heart. Normal mediastinum and jamie. Normal visualized pulmonary arteries. Normal visualized aortic arch and descending thoracic aorta. Normal visualized thoracic spine. Normal visualized ribs, clavicles, and shoulders. There is no demonstrated abnormality of the visualized soft tissue structures of the upper abdomen. RAD/Chest 1 View (Portable) IMPRESSION: The tip of the right-sided portacatheter is at the junction of the superior vena cava and right atrium. Electronically Signed: Tashi Ferguson MD at 12:34 EDT ,
== END 2022-07-09 13:42 | disposition home or self-care (01) ==
LOC: SDC 09:21 → AC 09:21
PROVIDERS: PCP Physician Assistant; Referring Provider Surgery; Visit Provider Surgery
PROC: (CPT 36561; principal; 2022-07-09 11:15)
DX: C50.912 Malignant neoplasm of unspecified site of left female breast (principal); R59.0 Localized enlarged lymph nodes; N60.02 Solitary cyst of left breast; Z80.0 Family history of malignant neoplasm of digestive organs; Z78.0 Asymptomatic menopausal state; E78.5 Hyperlipidemia, unspecified; Z87.19 Personal history of other diseases of the digestive system; Z98.51 Tubal ligation status
CPT/HCPCS: 36561; 71045; 77001; 93005; J7120; J2405

== ENCOUNTER → 2022-07-14 | Outpatient (CLI) | payer SELFPAY ==
--- NOTE | 2022-07-14 09:43 | ECHODONC_ITS ---
Reason For Study: Other, Lt Breast CA, Pre-Chemo Procedure This was a 2D Doppler, Color Flow transthoracic echocardiogram. Myocardial strain analysis was performed in this exam to aid in the assessment of cardiac function. Exam performed in department. Left Ventricle Normal left ventricle. The global longitudinal strain = -18.1 % (normal). The left ventricular ejection fraction is 60 %. Right Ventricle Normal right ventricle. Atria The left and right atria are normal. Mitral Valve Mild (1+) mitral valve insufficiency. Tricuspid Valve Trivial tricuspid valve insufficiency. Unable to estimate RV systolic pressure due to insufficient tricuspid regurgitant envelope. Aortic Valve Normal aortic valve. Pulmonic Valve The pulmonic valve is not well visualized. Great Vessels Normal sized aortic root. Pericardium/Pleural No pericardial effusion. MMode/2D Measurements & Calculations LVIDd: 4.8 cm IVSd: 0.92 cm Ao root diam: 2.9 cm LVIDs: 3.2 cm LVPWd: 0.92 cm RVDd: 3.2 cm FS: 33.0 % LAV(MOD-bp): 26.7 ml LVAd ap4: 25.1 cm2 SV(MOD-sp4): 46.1 ml LAV(MOD-bp) Indexed: 15.6 ml/m2 LVLd ap4: 6.8 cm LAV(MOD-sp2): 34.1 ml EDV(MOD-sp4): 75.3 ml LAV(MOD-sp4): 20.5 ml EDV(sp4-el): 78.5 ml LVAs ap4: 14.6 cm2 LVLs ap4: 5.9 cm ESV(MOD-sp4): 29.3 ml ESV(sp4-el): 30.5 ml EF(MOD-sp4): 61.2 % EF(sp4-el): 61.1 % SV(sp4-el): 47.9 ml LA A4 area: 9.9 cm2 LA dimension(2D): 3.1 cm RA A4 area: 9.9 cm2 Time Measurements MV dec time: 0.25 sec Doppler Measurements & Calculations MV E max johnnie: 50.8 cm/sec Lat Peak E' Johnnie: 10.9 cm/sec Med Peak E' Johnnie: 8.2 cm/sec MV A max johnnie: 56.0 cm/sec E/E' lat: 4.7 E/E' med: 6.2 MV E/A: 0.91 Ao V2 max: 102.5 cm/sec LV V1 max: 86.2 cm/sec MV dec slope: 205.6 cm/sec2 Ao max P.2 mmHg LV V1 max P.0 mmHg Ao V2 mean: 76.7 cm/sec Ao mean P.5 mmHg Ao V2 VTI: 21.9 cm PA V2 max: 83.7 cm/sec ECHO/ONC Echo Complete Interpretation Summary The global longitudinal strain = -18.1 % (normal). The left ventricular ejection fraction is 60 %. Mild (1+) mitral valve insufficiency. Ordering Physician: Davian Polo Referring Physician: Miguelangel Lopez Performed By: Hillary Bryan, RACHAEL, RVT
== END | disposition home or self-care (01) ==
PROVIDERS: PCP Physician Assistant; Referring Provider Internal Medicine Hematology & Oncology; Visit Provider Internal Medicine Hematology & Oncology
DX: Z51.81 Encounter for therapeutic drug level monitoring (principal); C50.912 Malignant neoplasm of unspecified site of left female breast
CPT/HCPCS: 93306; 93356

== ENCOUNTER 2022-10-15 21:22 | Emergency (ER) | payer SELFPAY ==
[2022-10-15 21:23] VITALS: BP 158/93; PULSE 99; RESP 18; TEMP 36.7; O2SAT 98
[2022-10-15 22:16] LABS: Absolute Lymphocyte Count 1.72 X10^3/uL (0.83-4.51); Absolute Neutrophil Count 6.9 X10^3/uL (2.0-7.7); Basophil# 0.04 X10^3/uL; Basophil% 0.4 % (0-1); Eosinophil# 0.07 X10^3/uL; Eosinophils% 0.7 % (0-5); Hematocrit 35.2 % (37-47); Hemoglobin 11.7 g/dL (12.0-15.0); Lymphocyte # 1.72 X10^3/ul (0.83-4.51); Lymphocyte % 18.1 % (19-41); Mean Corp Hgb Conc 33.2 g/dL (32-36); Mean Corpuscular Hgb 34.4 pg (27.0-32.0); Mean Corpuscular Volume 103.5 fL (81-99); Mean Platelet Vol. 8.9 fl (6.2-12.0); Monocyte# 0.71 X10^3/uL; Monocyte% 7.5 % (0-10); NRBC Flagged by Analyzer 0 % (0-5); Neutrophil # 6.85 X10^3/uL (2.7-7.7); Neutrophil % 72.4 % (47-70); Platelet Count 229 K/mm3 (150-450); RBC Distribution Width CV 14.6 % (11.6-14.6); RBC Distribution Width SD 55.6 fl (35.1-43.9); White Blood Count 9.5 K/mm3 (4.4-11.0)
--- NOTE | 2022-10-15 22:25 | RAD_ITS ---
STUDY: X-RAY CHEST REASON FOR EXAM: Female, 57 years old. Chest pain TECHNIQUE: Single AP portable view of the chest. COMPARISON: July 29, 2022 chest x-ray FINDINGS: There is a right side portacatheter tip in the superior vena cava. The lungs are clear and expanded. There is no demonstrated pleural abnormality. Normal size heart. Normal mediastinum and jamie. Normal visualized pulmonary arteries. Normal visualized aortic arch and descending thoracic aorta. Normal visualized thoracic spine. Normal visualized ribs, clavicles, and shoulders. There is no demonstrated abnormality of the visualized soft tissue structures of the upper abdomen. RAD/Chest 1 View (Portable) IMPRESSION: Stable chest. No visualized acute focal infiltrate. Electronically Signed: Rosy Rodríguez MD at 22:44 EDT ,
[2022-10-15 22:32] VITALS: BP 132/82; PULSE 90; RESP 15; O2SAT 100
[2022-10-15 22:58] LABS: Anion Gap 6 (5-15); BUN 32 mg/dL (7-18); BUN/Creat Ratio 46.9 RATIO (10-20); Chloride 103 mmol/L (98-107); Creatinine, Serum 0.68 mg/dL (0.55-1.02); EST Glomerular Filtration Rate 94 mL/min (>60); Est Glom Filt Rate - Afr Amer 114 mL/min (>60); Estimated Creatinine Clearance 83.95 ml/min; Glucose 111 mg/dL (74-106); Potassium 3.3 mmol/L (3.5-5.1); Sodium Level 139 mmol/L (136-145); Troponin-I HS (w/2H Reflex) 34 pg/mL (3.0-54.0)
[2022-10-15 23:00] VITALS: BP 130/83; PULSE 84; O2SAT 99
[2022-10-16] VITALS: BP 140/89; PULSE 93; O2SAT 99
[2022-10-16 00:13] LABS: Reflex Troponin-HS? (from REC) Y
[2022-10-16 00:22] LABS: Troponin-I HS 34 pg/mL (3.0-54.0)
[2022-10-16 00:32] LABS: BNP,B-Type NATRIURETIC PEPTIDE 3.6 pg/mL (0-100)
--- NOTE | 2022-10-16 00:46 | EDS_ITS ---
HPI History of Present Illness Chief Complaint: Chest Pain Informant: patient and spouse/S.O. Narrative Narrative: Patient is a 57-year-old female with past medical history of breast cancer currently undergoing chemotherapy. She reports that its been roughly 2 weeks since her last chemotherapy dose and this was her fourth treatment. She states she is due to have repeat chemotherapy in approximately 1 week. She states that this evening she was having increased pain and felt off. She states she checked her blood pressure and it was elevated at that time. She denies any history of previous hypertension diagnosis or excessive stimulant use or illicit drug use. She states that the hypertension was persisting and then she noticed some midsternal chest discomfort and was concerned that this could be cardiac in nature patient presents for evaluation. [facility] Medical History (Updated 10/16/22 @ 07:[address] Kev Quinonez, ) Abnormal mammogram of left breast Abnormal ultrasound of breast Breast cancer, left Diarrhea Drug-induced toxic erythema Dyslipidemia Encounter for chemotherapy management Encounter for education Herniated disc History of IBS History of stress test Hypokalemia Non-smoker Oral candidiasis PONV (postoperative nausea and vomiting) Post-menopausal Stomatitis Tachycardia Home Medications aspirin 81 mg tablet,delayed release (Lo-Dose Aspirin) 81 mg PO DAILY 01/07/17 [History Last Taken 07/05/22] calcium carbonate 600 mg calcium (1,500 mg) tablet 600 mg PO DAILY 01/07/17 [History Last Taken Unknown] rosuvastatin 5 mg tablet (Crestor) 5 mg PO DAILY 01/07/17 [History Last Taken Unknown] cholecalciferol (vitamin D3) 50 mcg (2,000 unit) capsule 50 mcg PO DAILY 06/30/22 [History Last Taken Unknown] coenzyme Q10 100 mg capsule (CoQ-10) 100 mg PO DAILY 06/30/22 [History Last Taken Unknown] riboflavin (vitamin B2) 100 mg tablet 100 mg PO DAILY 06/30/22 [History Last Taken Unknown] lidocaine-prilocaine 2.5 %-2.5 % topical cream 1 applic topical ONCE PRN PORT ACCESS 30 days #30 grams 07/06/22 [Rx Last Taken Unknown] ondansetron 8 mg disintegrating tablet 8 mg PO Q8H PRN nausea and vomiting #30 tabs 07/06/22 [Rx Last Taken Unknown] MAGIC MOUTH WASH (BMX) 180 mL suspension 15 ml PO .Q6HR #180 mL 04/25/23 [Rx Last Taken Unknown] nystatin 100,000 unit/mL oral suspension 1 ml PO Q6H #473 mL 07/27/22 [Rx Last Taken Unknown] dexamethasone 4 mg tablet 4 mg PO DAILY #12 tabs 09/22/22 [Rx Last Taken Unknown] diclofenac sodium 1 % topical gel (Voltaren Arthritis Pain) 2 g topical .prn 09/29/22 [History Last Taken Unknown] gabapentin 100 mg capsule 100 mg PO QHS #30 caps 10/06/22 [Rx Last Taken Unknown] triamcinolone acetonide 0.1 % topical cream 1 applic topical BID #80 grams 10/06/22 [Rx Last Taken Unknown] methylprednisolone 4 mg tablets in a dose pack (Medrol (Chema)) See Rx Instructions PO PER PKG DIR #21 tabs 10/11/22 [Rx Last Taken Unknown] potassium chloride 20 mEq tablet,extended release(part/cryst) 40 meq (2 x 20 mEq) PO DAILY #6 tabs 10/11/22 [Rx Last Taken Unknown] Allergy/AdvReac Type Severity Reaction Status Date / Time atropine [From ] Allergy Swelling Verified 10/11/22 10:19 hyoscyamine [From ] Allergy Swelling Verified 10/11/22 10:19 phenobarbital [From ] Allergy Swelling Verified 10/11/22 10:19 scopolamine [From ] Allergy Swelling Verified 10/11/22 10:19 Sulfa (Sulfonamide Allergy Hives Verified 10/11/22 10:19 Antibiotics) clarithromycin [From Biaxin] AdvReac Nausea Verified 10/11/22 10:19 prochlorperazine AdvReac Other Verified 10/11/22 10:19 [From Compazine] Family History Sister Colon cancer, Onset Age: 42 Mother Heart disease Kidney disease Lupus High cholesterol Father High cholesterol Hypertension Thyroid disorder Heart disease Brother Heart disease Aunt Diabetes maternal Surgical History History of colonoscopy History of D&C Hx of tubal ligation S/P left breast biopsy Social History household members: spouse current occupation: [employer] Smoking Status: Never smoker alcohol intake: never substance use type: does not use ROS ROS ED Constitutional Constitutional ED: Denies chills or fever(s) ENT ENT ED: Denies sore throat Cardiovascular Cardiovascular: Reports chest pain; Denies palpitations or racing heartbeat Respiratory/Chest Respiratory/Chest: Denies cough or dyspnea Gastrointestinal Gastrointestinal: Reports nausea; Denies abdominal pain, diarrhea or vomiting Genitourinary Genitourinary ED: Denies dysuria Musculoskeletal Musculoskeletal: Reports other Details: Positive bilateral foot pain ; Denies myalgias Integumentary Denies rash Neurologic Neurologic: Denies headache(s) Hematologic/Lymphatic Hematologic/Lymphatic: Denies easy bleeding or easy bruising EXAM Physical Exam Const Vital Signs: 10/15/22 21:23 10/15/22 22:32 10/15/22 22:32 Temperature 98.0 F Temperature Source Temporal Pulse Rate 99 90 Respiratory Rate 18 15 Respiratory Effort Blood Pressure 158/93 H 132/82 H Blood Pressure Mean 114 98 Pulse Ox 98 100 Oxygen Delivery Method Room Air Room Air Room Air 10/15/22 22:32 10/15/22 23:00 10/16/22 00:00 Temperature Temperature Source Pulse Rate 84 93 Respiratory Rate Respiratory Effort Normal Blood Pressure 130/83 H 140/89 H Blood Pressure Mean 98 106 Pulse Ox 99 99 Oxygen Delivery Method 10/16/22 01:00 Temperature Temperature Source Pulse Rate 80 Respiratory Rate Respiratory Effort Blood Pressure 135/92 H Blood Pressure Mean 106 Pulse Ox 98 Oxygen Delivery Method Positive well nourished and well developed General Appearance ED: well developed HEENT HEENT Narrative: Normocephalic atraumatic Eyes PERRL and EOMs intact bilaterally General Eye ED: Negative for scleral icterus Neck supple and no JVD Resp normal respiratory effort and clear to auscultation bilaterally Cardio regular rate and regular rhythm Rate: other Other Details: Radial pulses are plus 2 out of 4 bilaterally are equal and symmetric Carotid pulses are equal and symmetric as well GI normal to inspection, nondistended, normoactive bowel sounds, non-tender, non- distended and no masses GI Narrative: No voluntary guarding or rigidity no pulsatile mass or fluid wave Auscultation: normoactive bowel sounds Palpation: soft Extremity normal to inspection Extremity Narrative: No asymmetric edema no pitting edema negative Homans' sign bilaterally Patient has chronic discoloration and open wounds of her feet from side effect of chemotherapy without secondary changes to suggest infection. Neuro oriented x3, CN's II-XII intact bilaterally and no sensory deficits noted Neuro Narrative: Cranial nerves II through XII are grossly intact there are no focal neurologic deficits. No pronator drift no dysmetria no truncal ataxia. NIH stroke scale score of 0 Sensorium / Orientation: alert Psych mental status grossly normal Skin Skin Narrative: Soft tissue changes to the feet as documented above which are persistent in nature secondary to chemotherapy MDM MDM MDM Narrative Medical decision making narrative: Patient presented to the ER with spontaneous improvement of her blood pressure. She reported that she did not develop chest discomfort until after her blood pressure been elevated. She denies any cause of the hypertension such as excessive stimulant use or illicit drug use but did admit to being in pain when the blood pressure was elevated. She also states that there has been spontaneous resolution of her chest discomfort. She denies any pleuritic component to it. Her neuro exam is normal at this time and she does not have findings to suggest hypertensive encephalopathy. However in order to rule out endorgan damage secondary to her hypertension basic blood work was obtained. Labs revealed no signs of acute kidney injury and her initial and delta troponin are normal at 34. I do not feel there is a need for a D-dimer or CT of the chest as patient denied any current chest pain in the ER and denied any pleuritic component to it. On reevaluation she is resting comfortably and the blood pressure is continued to reduce spontaneously. Therefore at this time as work-up displays no signs of endorgan damage and patient's had spontaneous improvement of her chest pain as well as blood pressure there is no need for further evaluation and she is otherwise safe for discharge History & Record Review Discussion w/independent historian: Patient and Family Lab Data Attestation: I reviewed the patient's lab results. Labs: Laboratory Results - last 24 hr 10/15/22 10/15/22 10/16/22 22:08 22:48 00:00 WBC 9.5 RBC 3.40 L Hgb 11.7 L Hct 35.2 L MCV 103.5 H MCH 34.4 H MCHC 33.2 RDW Std Deviation 55.6 H RDW Coeff of Brady 14.6 Plt Count 229 MPV 8.9 Immature Gran % (Auto) 0.900 Neut % (Auto) 72.4 H Lymph % (Auto) 18.1 L [place] % (Auto) 7.5 Eos % (Auto) 0.7 Baso % (Auto) 0.4 Absolute Neuts (auto) 6.9 Absolute Lymphs (auto) 1.72 Nucleated RBC % 0 Sodium 139 Potassium 3.3 L Chloride 103 Carbon Dioxide 30.0 Anion Gap 6 BUN 32 H Creatinine 0.68 Estim Creat Clear Calc 83.95 Est GFR (MDRD) Af Amer 114 Est GFR (MDRD) Non-Af 94 BUN/Creatinine Ratio 46.9 H Glucose 111 H Calcium 9.0 Troponin I High Sens 34 34 B-Natriuretic Peptide 3.6 Radiography Diagnostic Testing: Clinical Impression(s) from Imaging Studies Chest X-Ray 10/15/22 22:25 IMPRESSION: Stable chest. No visualized acute focal infiltrate. Electronically Signed: Rosy Rodríguez MD at 22:44 EDT , Chest x-ray as interpreted by the emergency medicine physician reveals no acute infiltrate pneumothorax or pleural effusion Discharge Plan Triage Chief Complaint: Chest Pain ED Provider: Kev Quinonez Dx/Rx/DC Orders Clinical Impression: Hypertension, Breast cancer, left Instructions: ED Hypertension, To Be Confirmed Prescriptions: No Action cholecalciferol (vitamin D3) 50 mcg (2,000 unit) capsule 50 mcg PO DAILY riboflavin (vitamin B2) 100 mg tablet 100 mg PO DAILY coenzyme Q10 [CoQ-10] 100 mg capsule 100 mg PO DAILY ondansetron 8 mg tablet,disintegrating 8 mg PO Q8H PRN (Reason: nausea and vomiting) Qty: 30 1RF lidocaine-prilocaine 2.5-2.5 % cream 1 applic topical ONCE PRN (Reason: PORT ACCESS) 30 Days Qty: 30 2RF MAGIC MOUTH WASH (BMX) 180 mL suspension 15 ml PO .Q6HR Qty: 180 5RF Rx Instructions: diphenhydramine 12.5 mg/5 mL oral liquid 60 mL; aluminum-mag hydroxide- simethicone 400 mg-400 mg-40 mg/5 mL oral susp 60 mL; Lidocaine Viscous 2 % mucosal solution 60 mL; Per 180 mL nystatin 100,000 unit/mL suspension 1 ml PO Q6H Qty: 473 2RF Rx Instructions: swish and swallow diclofenac sodium [Voltaren Arthritis Pain] 1 % gel 2 g topical .prn Rx Instructions: apply to single elbow, wrist or hand; for hand includes palm/fingers/back of hand methylprednisolone [Medrol (Chema)] 4 mg tablets,dose pack See Rx Instructions PO PER PKG DIR Qty: 21 0RF Rx Instructions: PO PER PKG DIR potassium chloride 20 mEq tablet,ER particles/crystals 40 meq PO DAILY Qty: 6 0RF triamcinolone acetonide 0.1 % cream 1 applic topical BID Qty: 80 1RF gabapentin 100 mg capsule 100 mg PO QHS Qty: 30 2RF aspirin [Lo-Dose Aspirin] 81 MG tablet,delayed release (DR/EC) 81 mg PO DAILY Patient Comments: WAS TOLD TO ASK ABOUT STOPPING calcium carbonate 600 MG tablet 600 mg PO DAILY Patient Comments: SUPPLEMENT rosuvastatin [Crestor] 5 MG tablet 5 mg PO DAILY Patient Comments: CHOLESTEROL dexamethasone 4 mg tablet 4 mg PO DAILY Qty: 12 2RF Rx Instructions: Take 8 mg twice daily the day before, the day of, and the day after chemotherapy ONLY Primary Care Provider: Justyna Lopez Referrals: Justyna Lopez, PA [Primary Care Provider] - Disposition Disposition: Home, Self Care Discharge Date/Time: 10/16/22 01:07
[2022-10-16 01:00] VITALS: BP 135/92; PULSE 80; O2SAT 98
== END 2022-10-16 01:07 | disposition home or self-care (01) ==
PROVIDERS: Emergency Provider Emergency Medicine; PCP Physician Assistant; Visit Provider Emergency Medicine
DX: C50.912 Malignant neoplasm of unspecified site of left female breast (principal); E78.5 Hyperlipidemia, unspecified; I10 Essential (primary) hypertension; Z92.21 Personal history of antineoplastic chemotherapy; Z79.82 Long term (current) use of aspirin
CPT/HCPCS: 71045; 80048; 83880; 84484; 85025; 93005; 99284; A4216

== ENCOUNTER → 2022-10-18 | Outpatient (CLI) | payer SELFPAY ==
--- NOTE | 2022-10-18 13:47 | VDLE_ITS ---
Reason For Study: Rt Leg Swelling RIGHT LEFT GSV is normal. CFV is compressible, spontaneous, phasic, CFV is compressible, spontaneous, phasic, competent, and demonstrates normal competent and demonstrates normal augmentation. augmentation. FV is compressible, spontaneous, phasic, competent and demonstrates normal augmentation. POP V is compressible, spontaneous, phasic, competent and demonstrates normal augmentation. T/P Trunk is compressible. PTV is compressible. RT PerV is compressible. Procedure This is a venous duplex using B-mode, color flow and spectral Doppler. Exam performed in department. The exam was diagnostic. A preliminary report was called and/or faxed to Dr. Marcelo's office. VL/Venous Duplex US, Unilateral Interpretation Summary There is no evidence of right lower extremity deep vein thrombosis. Right great saphenous vein appears patent and compressible segmentally. Normal flow patterns left common f emoral vein Ordering Physician: Davian Polo Referring Physician: Davian Polo Performed By: Ti Miguel RVT
== END | disposition home or self-care (01) ==
LOC: CVS 13:46
PROVIDERS: PCP Physician Assistant; Referring Provider Internal Medicine Hematology & Oncology; Visit Provider Internal Medicine Hematology & Oncology
DX: M79.89 Other specified soft tissue disorders (principal); M79.671 Pain in right foot
CPT/HCPCS: 93971

== ENCOUNTER 2022-10-28 08:30 | Outpatient (RCR) | payer SELFPAY ==
[2022-10-21 09:16] VITALS: BP 142/82; PULSE 92; RESP 20; TEMP 536.2; TEMP 997.2; BMI 19.3
--- NOTE | 2022-10-21 10:11 | HP.PCM_ITS ---
History of Present Illness Date of Service: 10/21/22 Chief Complaint: Left Great Toe Ulcer History of Wound: Ms. Vargas is a 57yo with a history of Breast Cancer referred to the wound center due to non healing ulcer. Being managed by her Oncologist and Inspector [employer]er [employer] for drug induced toxic erythema and Palmar -Plantar erythrodysesthesia. Most of the other areas on her foot are responding to zinc oxide however her left great toe with minimal improvement. They have been applying zinc oxide to the area and she has to soak her feet in cold water several times a day due to burning/discomfort. Chemotherapy is currently on hold to aid in healing. She takes Jaime BID. No history of DM or Tobacco abuse. [facility] Medical History (Updated 10/21/22 @ 11:[address] Lauren Diaz MD) Abnormal mammogram of left breast Abnormal ultrasound of breast Breast cancer, left Diarrhea Drug-induced toxic erythema Dyslipidemia Encounter for chemotherapy management Encounter for education Herniated disc History of IBS History of stress test Hypokalemia Non-smoker Oral candidiasis Palmar plantar erythrodysaesthesia due to cytotoxic therapy PONV (postoperative nausea and vomiting) Post-menopausal Skin ulcer of left great toe with fat layer exposed Stomatitis Tachycardia Home Medications aspirin 81 mg tablet,delayed release (Lo-Dose Aspirin) 81 mg PO DAILY 01/07/17 [History Last Taken 07/05/22] calcium carbonate 600 mg calcium (1,500 mg) tablet 600 mg PO DAILY 01/07/17 [History Last Taken Unknown] rosuvastatin 5 mg tablet (Crestor) 5 mg PO DAILY 01/07/17 [History Last Taken Unknown] cholecalciferol (vitamin D3) 50 mcg (2,000 unit) capsule 50 mcg PO DAILY 06/30/22 [History Last Taken Unknown] coenzyme Q10 100 mg capsule (CoQ-10) 100 mg PO DAILY 06/30/22 [History Last Taken Unknown] riboflavin (vitamin B2) 100 mg tablet 100 mg PO DAILY 06/30/22 [History Last Taken Unknown] lidocaine-prilocaine 2.5 %-2.5 % topical cream 1 applic topical ONCE PRN PORT ACCESS 30 days #30 grams 07/06/22 [Rx Last Taken Unknown] ondansetron 8 mg disintegrating tablet 8 mg PO Q8H PRN nausea and vomiting #30 tabs 07/06/22 [Rx Last Taken Unknown] MAGIC MOUTH WASH (BMX) 180 mL suspension 15 ml PO .Q6HR #180 mL 07/27/22 [Rx Last Taken Unknown] nystatin 100,000 unit/mL oral suspension 1 ml PO Q6H #473 mL 07/27/22 [Rx Last Taken Unknown] dexamethasone 4 mg tablet 4 mg PO DAILY #12 tabs 09/22/22 [Rx Last Taken Unknown] diclofenac sodium 1 % topical gel (Voltaren Arthritis Pain) 2 g topical .prn 09/29/22 [History Last Taken Unknown] gabapentin 100 mg capsule 100 mg PO QHS #30 caps 10/06/22 [Rx Last Taken Unknown] triamcinolone acetonide 0.1 % topical cream 1 applic topical BID #80 grams 10/06/22 [Rx Last Taken Unknown] methylprednisolone 4 mg tablets in a dose pack (Medrol (Chema)) See Rx Instructions PO PER PKG DIR #21 tabs 10/11/22 [Rx Last Taken Unknown] potassium chloride 20 mEq tablet,extended release(part/cryst) 40 meq (2 x 20 mEq) PO DAILY #6 tabs 10/11/22 [Rx Last Taken Unknown] hydrocodone-acetaminophen 5-325mg 5mg-325mg 1 tab PO Q8H PRN 10/20/22 [History Last Taken Unknown] hydrocodone-acetaminophen 5-325mg 5mg-325mg 1 tab PO QHS PRN pain 20 days #20 tabs 10/20/22 [Rx Last Taken Unknown] Allergy/AdvReac Type Severity Reaction Status Date / Time atropine [From ] Allergy Swelling Verified 10/20/22 09:04 hyoscyamine [From ] Allergy Swelling Verified 10/20/22 09:04 phenobarbital [From ] Allergy Swelling Verified 10/20/22 09:04 scopolamine [From ] Allergy Swelling Verified 10/20/22 09:04 Sulfa (Sulfonamide Allergy Hives Verified 10/20/22 09:04 Antibiotics) paclitaxel AdvReac Severe Rash Unverified 10/20/22 09:42 clarithromycin [From Biaxin] AdvReac Nausea Verified 10/20/22 09:04 prochlorperazine AdvReac Other Verified 10/20/22 09:04 [From Compazine] Docetaxel AdvReac Severe Rash Uncoded 10/20/22 09:42 Family History Sister Colon cancer, Onset Age: 42 Mother Heart disease Kidney disease Lupus High cholesterol Father High cholesterol Hypertension Thyroid disorder Heart disease Brother Heart disease Aunt Diabetes maternal Surgical History History of colonoscopy History of D&C Hx of tubal ligation S/P left breast biopsy Social History household members: spouse current occupation: [employer] Smoking Status: Never smoker alcohol intake: never substance use type: does not use ROS Constitutional Constitutional: Denies daytime sleepiness, excessive sweating, frequent falls or increased appetite Eyes Eyes: Denies burning, change in eye color, change in vision, diplopia, discharge from eye(s), discongugate gaze, double vision, excessive blinking or exophthalmos ENT HEENT: Denies bleeding gums, change in voice, disequillibrium, foreign body in nose, hoarseness, lip swelling or loss taste/smell Cardiovascular Cardiovascular: Reports edema and erythema on extremities; Denies claudication, cold extremities, cyanosis, diaphoresis, dizziness or dyspnea at rest Respiratory/Chest Respiratory/Chest: Denies chest tightness, difficulty clearing secretions, dyspnea, excessive phlegm production, hemoptysis, hoarseness, inability to speak or mouth breathing Gastrointestinal Gastrointestinal: Denies abdominal pain, belching, chewing difficulty, coffee ground emesis, fecal incontinence or hematochezia Genitourinary Genitourinary: Denies abdominal discomfort, difficulty urinating, flank pain, itching or low back pain Musculoskeletal Musculoskeletal: Reports extremity pain; Denies deformity, limited range of motion, tingling or tremors Integumentary Integumentary: Reports erythema and non-healing lesions; Denies dry skin, furuncle, hirsutism or jaundice Neurologic Neurologic: Denies burning sensations, confusion, convulsions, disequilibrium, dizziness, headache(s), memory loss or numbness Psychiatric Psychiatric: Denies auditory hallucinations, behavioral changes, hallucinations, memory loss or visual hallucinations Endocrine Endocrinology: Denies change in body appearance, deepening of the voice, excessive sweating, heat intolerance, increase in ring/shoe/hat size or palpitations Allergic/Immunologic Allergic/Immunologic: Denies itchy eyes, lip swelling, throat swelling, tongue swelling, eczemia or wheezing Vital Signs Vital Signs Vital Signs: 10/21/22 09:16 Temperature 997.2 F H Temperature Source Temporal Pulse Rate 92 Respiratory Rate 20 H Blood Pressure 142/82 H Blood Pressure Mean 102 Blood Pressure Source Monitor Weight Weight: 127 lb Body Mass Index (BMI) 19.3 Physical Exam Const alert, oriented x3 and no apparent distress General Appearance: cooperative, comfortable and well kempt HEENT normocephalic and head/scalp atraumatic Head and Scalp: normal to inspection Eyes EOMs intact bilaterally Neck full ROM General: normal visual inspection Resp normal respiratory effort and normal air movement Effort and Inspection: able to speak in complete sentences Cardio regular rate, regular rhythm, S1 normal heart sound and S2 normal heart sound GI soft to palpation, non-tender and non-distended Extremity General Extremity: edema Skin General Skin Exam: erythema Wounds: wounds noted Neuro oriented x3, CN's II-XII intact bilaterally, moves all extremities and no focal motor deficits Psych mental status grossly normal, thought process normal, cooperative and affect normal Debridement Note Debridement Note Post-Debridement Measurements and Additional Note: Post-Debridement Measurements/Treatment - Nurse 1 - General Ulcer Assessment Start: 10/21/22 09:05 Freq: Status: Active Protocol: BRANDY Activity Type Activity Date Activity User E-sign Co-sign Detail Recorded Client Recorded Date Recorded By Document 10/21/22 09:16 DL [id number] 10/21/22 09:30 DL 10/21/22 09:16 - Today's Visit Information Type of service Initial Visit Arrival Mode Ambulatory, Wheelchair Transfer Assistance None Patient Identification Verified (Name & Yes ) Patient Requires Transmission-Based No Precautions Height and Weight Height 5 ft 8 in Weight 127 lb Weight in Pounds 127.0 lbs Body Mass Index (BMI) 19.3 BMI Classification Normal BSA - Mukesh 1.69 Vital Signs Temperature (97.8 F-99.1 F) 997.2 F H Temperature Source Temporal Pulse Rate (60-100) 92 Pulse Location Monitor Respiratory Rate (12-18) 20 H Respiratory rate source Observation Blood Pressure (90/60-120/80) 142/82 H Blood Pressure Mean 102 Source Monitor Pain Scale: 0-10 Numeric Is Patient Pain Free? No munir feet -Description Throbbing -Duration (hours) Acute -Pain Behavior Guarding, Withdrawal from Touch -Pain Aggravating Factors ADL's Lower Extremity Assessment/ Foot Assessment/ Toe Nail Assessment Right -Posterior Tibial Palpable Yes -Dorsalis Pedis Palpable Yes -Extremity Color Normal -Hair Growth on Legs No -Hair Growth on Toes No -Temperature of Extremity Warm -Capillary Refill Greater than 3 Seconds -Dependent Rubor No -Blanched when Elevated No -Lipodermatosclerosis No -Other Deformity No -Prior Foot Ulcer No -Charcot Joint No -Prior Amputation No -Thick No -Discolored No -Deformed No -Improper Length & Hygeine No Neuropathy Assessment Feet - Top Side and Bottom <Entered> (a) Communication Assessment Preferred language Bol[place]ian Able to Read Yes Able to Write Yes Communication Tools None Right Hearing Abillity Normal Left Hearing Abillity Normal Visual Assistive Devices Glasses Teaching Assessment Preferences Verbal,Written, Demonstration Readiness To Learn Good Willingness to Engage in Self Management Med Activies Readiness to Engage in Self Management Med Activities Anxiety Level Calm Cooperation Cooperative Perception Coherent Interest in Health Problem Asks Questions Education Importance Acknowledges Need Does Patient Smoke tobacco or other No substances Smoking Status Never smoker Is Patient Diabetic No Functional Assessment Recent Decline in Ability to Perform Denies Any Declines Culture/Mormon/Gear Finisher Cultural/Mormon Needs that may affect No Treatment Plan Would you allow our hospital rental clerk tool and equipment to No meet you for the purpose of spiritual/ emotional support? Gear Finisher to contact place of judaism No Teaching: Wound Center Dressing Your Wound -Person Taught Patient *Welcome to the Wound Center -Person Taught Patient (a) 1 - + 2 - - WC - Nurse 1 - General Ulcer Measurement Start: 10/21/22 09:05 Freq: Status: Active Protocol: Activity Type Activity Date Activity User E-sign Co-sign Detail Recorded Client Recorded Date Recorded By Document 10/21/22 09:16 DL [id number] 10/21/22 09:30 DL 10/21/22 09:16 Wound Center Nurse 1 #1 L grt toe -Combined with other wound No -Current Size (cm) - Length 0.4 -Current Size (cm) - Width 0.5 -Current Size (cm) - Depth 0.1 -Total Square Cm 0.20 -Photo Taken Yes -Classification - Thickness Full Thickness without Exposed Support Structure -Exudate Amt None Present -Wound Margin Distinct, Outline Attached -Granulation Amt None Present (0 %) -Necrosis Amt Large (67-100%) -Necrotic Tissue Type Adherent Slough -Structure Exposed N/A -Texture (Coco-wound Skin Appearance) Localized Edema -Moisture (Coco-wound Skin Appearance) No Abnormality -Color (Coco-wound Skin Appearance) Erythema -Temperature (Coco-wound Skin No Abnormality Appearance) (Pt Warm) -Tenderness on Palpation (Coco-wound No Skin Appearance) -Ulcer Cleansing Not Cleansed -Foul Odor after Cleansing No -Anesthetic Used 5% Lidocaine Gel Right Calf (cm) 32 Right Ankle (cm) 21.3 Left Calf (cm) 31.3 Left Ankle (cm) 19.3 WC - Nurse 2 - General Ulcer CM Notes Start: 10/21/22 09:05 Freq: Status: Active Protocol: Activity Type Activity Date Activity User E-sign Co-sign Detail Recorded Client Recorded Date Recorded By Document 10/21/22 09:42 MW [id number] 10/21/22 09:52 MW 10/21/22 09:42 Wound Center Nurse 2 #1 L grt toe -Time 09:43 -Correct Patient Yes -Correct Side, Site, Position Yes -Correct Procedure Yes -Procedure Performed Yes -Type of Procedure Debridement -Clinical Debridement Subcutaneous -Tissue Removed Subcutaneous -Post Debridement (cm) - Length 0.7 -Post Debridement (cm) - Width 0.7 -Post Debridement (cm) - Depth 0.1 -Total Square (Post) (cm) 0.49 -Area of Debridement (cm) - Length 0.7 -Area of Debridement (cm) - Width 0.7 -Total Square (Area) (cm) 0.49 -Tunneling No -Undermining/Tunneling No -Circular Undermining No -Wound/Ulcer Outcome Not Healed -Ulcer Cleansing Rinsed/ Irrigated with Saline -Foul Odor after Cleansing No -Bioengineered Tissue No -Bleeding Controlled with Pressure -Treatment Response Procedure Tolerated Well -Offloading No -Debridement - Subq, 1st 20sq cm Yes Pain Scale: 0-10 Numeric Is Patient Pain Free? Yes Charges/Coding Visit Charges Office Visits / Consults: [id number] OV L3 New Procedures Integumentary [id number]: [id number] Xiomara subq tissue 20 sq cm/< Assessment/Plan Assessment/Plan (1) Palmar plantar erythrodysaesthesia due to cytotoxic therapy: CODE(S): L27.1 - Localized skin eruption due to drugs and medicaments taken internally (2) Drug-induced toxic erythema: CODE(S): L53.0 - Toxic erythema; T50.905A - Adverse effect of unspecified drugs, medicaments and biological substances, initial encounter (3) Skin ulcer of left great toe with fat layer exposed: CODE(S): L97.522 - Non-pressure chronic ulcer of other part of left foot with fat layer exposed (4) Breast cancer, left: CODE(S): C50.912 - Malignant neoplasm of unspecified site of left female breast QUALIFIERS: Breast location: overlapping sites of breast Estrogen receptor status: negative Patient sex: female Qualified Code(s): C50.812 - Malignant neoplasm of overlapping sites of left female breast; Z17.1 - Estrogen receptor negative status [ER-] PLAN: Plan Debridement done as documented above, procedure was well-tolerated. Recommend Promogran daily, cover with gauze and tape. May cover with an absorbent material when soaking is needed. Continue zinc oxide to other areas as they appear to be doing well per patient and . Continue Jaime twice daily. Has bilateral lower extremity edema worse on the right, she was advised to try Ej wraps to see if she tolerates this well. Continue leg elevation and other chronic care. Their questions were answered and they were advised to let us know if they have any further questions or concerns. Follow-up in a week or sooner if needed. This note was generated with [employer] dictation software. It may contain incorrect words, spelling, and punctuation that were not noted in checking the note before signing.
[2022-10-28 08:24] VITALS: RESP 16; TEMP 36.1; BMI 19.3
--- NOTE | 2022-10-28 09:10 | PN.PCM_ITS ---
History of Present Illness Date of Service: 10/28/22 Chief Complaint: Left Great Toe Ulcer History of Wound: Ms. Vargas is a 57yo with a history of Breast Cancer referred to the wound center due to non healing ulcer. Being managed by her Oncologist and Process Safety Management Engineer for drug induced toxic erythema and Palmar -Plantar erythrodysesthesia. Most of the other areas on her foot are responding to zinc oxide however her left great toe with minimal improvement. They have been applying zinc oxide to the area and she has to soak her feet in cold water several times a day due to burning/discomfort. Chemotherapy is currently on hold to aid in healing. She takes Jaime BID. No history of DM or Tobacco abuse. Progress of Wound: Improving. Bilateral foot edema and erythema have improved as well. Objective Data Objective Data Vital Signs: Vital Signs Temp Pulse Resp BP O2 Del Method 97 F L 92 16 142/82 H Room Air 10/28/22 08:24 10/21/22 09:16 10/28/22 08:24 10/21/22 09:16 10/28/22 08:24 Oxygen Delivery Method Room Air Weight: 127 lb Body Mass Index (BMI) 19.3 Charges/Coding Procedures Integumentary 111xxx-113xx: [id number] Xiomara subq tissue 20 sq cm/< Physical Exam Const alert, oriented x3 and no apparent distress General Appearance: cooperative, comfortable and well kempt HEENT normocephalic and head/scalp atraumatic Head and Scalp: normal to inspection Eyes EOMs intact bilaterally Neck full ROM General: normal visual inspection Resp normal respiratory effort Effort and Inspection: able to speak in complete sentences Extremity General Extremity: edema Skin General Skin Exam: erythema Wounds: wounds noted Neuro oriented x3, CN's II-XII intact bilaterally, moves all extremities and no focal motor deficits Psych mental status grossly normal, thought process normal, cooperative and affect normal Debridement Note Debridement Note Wound debrided: Left great toe Type of Debridement: Excisional debridement Anesthesia Used: 4% Lidocaine Solution Depth: Down to and including healthy tissue and in the subcutaneous layer Percentage of wound debrided: 100 Instrument Used: - (1mm) Severity: Fat Layer Exposed Amount of bleeding with debridement: Mild Bleeding Controlled with: Pressure Post-Debridement Measurements and Additional Note: Post-Debridement Measurements/Treatment WC - Nurse 1 - General Ulcer Assessment Start: 10/21/22 09:05 Freq: Status: Active Protocol: WC.LOWEXT Activity Type Activity Date Activity User E-sign Co-sign Detail Recorded Client Recorded Date Recorded By Document 10/21/22 09:16 DL [id number] 10/21/22 09:30 DL Document 10/28/22 08:24 [facility] [id number] 10/28/22 08:28 BMF 10/21/22 10/28/22 09:16 08:24 WC - Today's Visit Information Type of service Initial Visit Follow-up Visit (Physician/PARAFFINER ) Arrival Mode Ambulatory, Ambulatory Wheelchair Transfer Assistance None None Patient Identification Verified (Name & Yes Yes ) Patient Requires Transmission-Based No No Precautions Height and Weight Height 5 ft 8 in Weight 127 lb Weight in Pounds 127.0 lbs Body Mass Index (BMI) 19.3 19.3 BMI Classification Normal Normal BSA - Mukesh 1.69 Vital Signs Temperature (97.8 F-99.1 F) 997.2 F H 97 F L Temperature Source Temporal Temporal Pulse Rate (60-100) 92 Pulse Location Monitor Monitor Respiratory Rate (12-18) 20 H 16 Respiratory rate source Observation Observation Oxygen Delivery Method Room Air Blood Pressure (90/60-120/80) 142/82 H Blood Pressure Mean (mm Hg) 102 Source Monitor Monitor Position Sitting Blood Pressure Location Left Arm History Since Last Visit- (Skip if this is Patient's initial visit) Have you changed medications since your No last visit? Any new allergies or adverse reactions No Had a fall/change in ADL's that may No increase risk of falls Signs or symptoms of abuse and/or No neglect since last visit Have you been in the hospital since your No last visit? Has dressing in place as prescribed Yes Has compression in place as prescribed N/A Has offloadiing in place as prescribed N/A Experienced any changes in pain level or No management Left Footwear Regular Shoe Right Footwear Regular Shoe Pain Scale: 0-10 Numeric Is Patient Pain Free? No Yes munir feet -Description Throbbing -Duration (hours) Acute -Pain Behavior Guarding, Withdrawal from Touch -Pain Aggravating Factors ADL's Lower Extremity Assessment/ Foot Assessment/ Toe Nail Assessment Right -Posterior Tibial Palpable Yes -Dorsalis Pedis Palpable Yes -Extremity Color Normal -Hair Growth on Legs No -Hair Growth on Toes No -Temperature of Extremity Warm -Capillary Refill Greater than 3 Seconds -Dependent Rubor No -Blanched when Elevated No -Lipodermatosclerosis No -Other Deformity No -Prior Foot Ulcer No -Charcot Joint No -Prior Amputation No -Thick No -Discolored No -Deformed No -Improper Length & Hygeine No Neuropathy Assessment Feet - Top Side and Bottom <Entered> (a) Communication Assessment Preferred language Romanian Able to Read Yes Able to Write Yes Communication Tools None Right Hearing Abillity Normal Left Hearing Abillity Normal Visual Assistive Devices Glasses Teaching Assessment Preferences Verbal,Written, Demonstration Readiness To Learn Good Willingness to Engage in Self Management Med Activies Readiness to Engage in Self Management Med Activities Anxiety Level Calm Cooperation Cooperative Perception Coherent Interest in Health Problem Asks Questions Education Importance Acknowledges Need Does Patient Smoke tobacco or other No substances Smoking Status Never smoker Is Patient Diabetic No Functional Assessment Recent Decline in Ability to Perform Denies Any Declines 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 Blanket Winder Helper to contact place of confucianism No Teaching: Wound Center Dressing Your Wound -Person Taught Patient *Welcome to the Wound Center -Person Taught Patient (a) 1 - + 2 - - - Nurse 1 - General Ulcer Measurement Start: 10/21/22 09:05 Freq: Status: Active Protocol: Activity Type Activity Date Activity User E-sign Co-sign Detail Recorded Client Recorded Date Recorded By Document 10/21/22 09:16 DL [id number] 10/21/22 09:30 DL Document 10/28/22 08:24 [facility] [id number] 10/28/22 08:28 [facility] 10/21/22 10/28/22 09:16 08:24 Wound Center Nurse 1 #1 L grt toe -Combined with other wound No No -Current Size (cm) - Length 0.4 0.3 -Current Size (cm) - Width 0.5 0.3 -Current Size (cm) - Depth 0.1 0.1 -Total Square Cm 0.20 0.09 -Date of Last Picture (Recall this 10/28/22 field) -Photo Taken Yes Yes -Tunneling No -Undermining/Tunneling No -Circular Undermining No -Classification - Thickness Full Thickness without Exposed Support Structure -Exudate Amt None Present Small -Exudate Type Serosanguineous -Wound Margin Distinct, Distinct, Outline Outline Attached Attached -Granulation Amt None Present (0 Small (1-33%) %) -Granulation Quality [place] -Slough/Fibrin Yes -Necrosis Amt Large (67-100%) Large (67-100%) -Necrotic Tissue Type Adherent Slough Adherent Slough -Structure Exposed N/A -Texture (Coco-wound Skin Appearance) Localized Edema Assessed, Scarring -Moisture (Coco-wound Skin Appearance) No Abnormality Assessed -Color (Coco-wound Skin Appearance) Erythema Assessed -Temperature (Coco-wound Skin No Abnormality No Abnormality Appearance) (Pt Warm) (Pt Warm) -Tenderness on Palpation (Coco-wound No No Skin Appearance) -Ulcer Cleansing Not Cleansed Rinsed/ Irrigated with Saline -Foul Odor after Cleansing No No -Anesthetic Used 5% Lidocaine 5% Lidocaine Gel Gel Right Calf (cm) 32 Right Ankle (cm) 21.3 Left Calf (cm) 31.3 Left Ankle (cm) 19.3 WC - Nurse 2 - General Ulcer CM Notes Start: 10/21/22 09:05 Freq: Status: Active Protocol: Activity Type Activity Date Activity User E-sign Co-sign Detail Recorded Client Recorded Date Recorded By Document 10/21/22 09:42 MW [id number] 10/21/22 09:52 MW Document 10/28/22 08:36 MW [id number] 10/28/22 08:40 MW 10/21/22 10/28/22 09:42 08:36 Wound Center Nurse 2 #1 L grt toe -Time 09:43 08:37 -Correct Patient Yes Yes -Correct Side, Site, Position Yes Yes -Correct Procedure Yes Yes -Procedure Performed Yes Yes -Type of Procedure Debridement Debridement -Clinical Debridement Subcutaneous Subcutaneous -Tissue Removed Subcutaneous Subcutaneous -Post Debridement (cm) - Length 0.7 0.4 -Post Debridement (cm) - Width 0.7 0.5 -Post Debridement (cm) - Depth 0.1 0.1 -Total Square (Post) (cm) 0.49 0.20 -Area of Debridement (cm) - Length 0.7 0.4 -Area of Debridement (cm) - Width 0.7 0.5 -Total Square (Area) (cm) 0.49 0.20 -Tunneling No No -Undermining/Tunneling No No -Circular Undermining No No -Wound/Ulcer Outcome Not Healed Not Healed -Ulcer Cleansing Rinsed/ Rinsed/ Irrigated with Irrigated with Saline Saline -Foul Odor after Cleansing No No -Bioengineered Tissue No No -Bleeding Controlled with Pressure Pressure -Treatment Response Procedure Procedure Tolerated Well Tolerated Well -Offloading No No -Debridement - Subq, 1st 20sq cm Yes Yes Pain Scale: 0-10 Numeric Is Patient Pain Free? Yes Yes - Nurse 3 - General Ulcer D/C NN Start: 10/21/22 09:05 Freq: Status: Active Protocol: Activity Type Activity Date Activity User E-sign Co-sign Detail Recorded Client Recorded Date Recorded By Document 10/21/22 10:10 MW [id number] 10/21/22 10:11 MW Document 10/28/22 08:48 RB [id number] 10/28/22 08:49 RB 10/21/22 10/28/22 10:10 08:48 Wound Care Center Nurse 3 #1 L grt toe -Ulcer Cleansing Rinsed/ Rinsed/ Irrigated with Irrigated with Saline Saline -Foul Odor after Cleansing No -Negative Pressure Wound Therapy N/A -Primary Dressing Applied Promogran Promogran -Primary Dressing Covered/Secured with Dry Gauze & Dry Gauze & Roll Gauze, Roll Gauze, Secured with Secured with Tape Tape -Promogran 2 1 Right -Lotion applied to leg before No compression wrap -Compression Wrap Ej Wrap Left -Lotion applied to leg before No compression wrap -Compression Wrap Ej Wrap Treatment Response Procedure Procedure Tolerated Well Tolerated Well Pain Scale: 0-10 Numeric Is Patient Pain Free? 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: CODE(S): L27.1 - Localized skin eruption due to drugs and medicaments taken internally (2) Drug-induced toxic erythema: CODE(S): L53.0 - Toxic erythema; T50.905A - Adverse effect of unspecified drugs, medicaments and biological substances, initial encounter (3) Skin ulcer of left great toe with fat layer exposed: CODE(S): L97.522 - Non-pressure chronic ulcer of other part of left foot with fat layer exposed (4) Breast cancer, left: CODE(S): C50.912 - Malignant neoplasm of unspecified site of left female breast QUALIFIERS: Breast location: overlapping sites of breast Estrogen receptor status: negative Patient sex: female Qualified Code(s): C50.812 - Malignant neoplasm of overlapping sites of left female breast; Z17.1 - Estrogen receptor negative status [ER-] PLAN: Plan Debridement done as documented above, procedure was well-tolerated. Improving. Continue Promogran daily, cover with gauze and tape. May cover with an absorbent material when soaking is needed. Continue zinc oxide to other areas as they appear to be doing well per patient and . Continue Jaime twice daily. Continue Ej wraps for edema management, leg elevation and other chronic care. Their questions were answered and they were advised to let us know if they have any further questions or concerns. Follow-up in 2 weeks or sooner if needed. This note was generated with velingo dictation software. It may contain incorrect words, spelling, and punctuation that were not noted in checking the note before signing.
== END 2022-11-01 23:59 | disposition home or self-care (01) ==
LOC: WC 08:30
PROVIDERS: PCP Physician Assistant; Referring Provider Nurse Practitioner Family; Visit Provider Internal Medicine
DX: L97.522 Non-pressure chronic ulcer of other part of left foot with fat layer exposed (principal); C50.812 Malignant neoplasm of overlapping sites of left female breast; C50.912 Malignant neoplasm of unspecified site of left female breast; L27.1 Localized skin eruption due to drugs and medicaments taken internally; Z79.82 Long term (current) use of aspirin; G62.9 Polyneuropathy, unspecified; R60.0 Localized edema; Z79.2 Long term (current) use of antibiotics; Z80.0 Family history of malignant neoplasm of digestive organs; E78.5 Hyperlipidemia, unspecified; L53.0 Toxic erythema; Z17.1 Estrogen receptor negative status [ER-]; T50.905A Adverse effect of unspecified drugs, medicaments and biological substances, initial encounter
CPT/HCPCS: 11042; 99213; G0463

== ENCOUNTER → 2022-11-04 | Outpatient (CLI) | payer SELFPAY ==
--- NOTE | 2022-11-04 07:44 | ECHOLONC_ITS ---
Reason For Study: Pre Op Procedure This was a limited 2D transthoracic echocardiogram. Myocardial strain analysis was performed in this exam to aid in the assessment of cardiac function. Exam performed in department. Left Ventricle Normal LV size. Left ventricular systolic function is normal. The estimated ejection fraction is 55 %. No regional wall motion abnormalities noted. Right Ventricle Normal RV size. Normal systolic function. Atria Normal left atrium. Normal right atrium. Mitral Valve Normal mitral valve. Tricuspid Valve Normal tricuspid valve. Aortic Valve Normal aortic valve. Pulmonic Valve Normal pulmonic valve. Great Vessels Normal aortic root. The pulmonary artery is normal size. Normal inferior vena cava. Pericardium/Pleural No pericardial effusion. MMode/2D Measurements & Calculations LVIDd: 5.1 cm IVSd: 0.75 cm LAV(MOD-sp4): 29.4 ml LVIDs: 3.8 cm LVPWd: 0.75 cm FS: 26.7 % LVAd ap4: 27.2 cm2 LVAd ap2: 25.5 cm2 SV(MOD-sp4): 44.2 ml LVLd ap4: 6.8 cm LVLd ap2: 6.7 cm EDV(MOD-sp4): 88.8 ml EDV(MOD-sp2): 78.3 ml EDV(sp4-el): 92.9 ml EDV(sp2-el): 82.0 ml LVAs ap4: 18.3 cm2 LVAs ap2: 16.2 cm2 LVLs ap4: 6.1 cm LVLs ap2: 5.8 cm ESV(MOD-sp4): 44.6 ml ESV(MOD-sp2): 36.1 ml ESV(sp4-el): 46.2 ml ESV(sp2-el): 38.1 ml EF(MOD-sp4): 49.8 % EF(MOD-sp2): 53.9 % EF(sp4-el): 50.3 % SV(MOD-sp2): 42.2 ml SV(sp4-el): 46.7 ml LA A4 area: 12.6 cm2 RA A4 area: 11.0 cm2 Doppler Measurements & Calculations MR max arnold: 516.5 cm/sec MR max P.7 mmHg MR mean arnold: 412.4 cm/sec MR mean P.0 mmHg MR VTI: 158.5 cm ECHO/ONC Echo, Limited Study Interpretation Summary Normal LV size. Left ventricular systolic function is normal. The estimated ejection fraction is 55 %. The global longitudinal strain = -15.5% (abnormal). The global longitudinal str ain is mildly abnormal. Structurally normal valves. Ordering Physician: Davian Polo Referring Physician: Davian Polo Performed By: Sunny Bryan RCS
== END | disposition home or self-care (01) ==
LOC: CVS 07:43
PROVIDERS: PCP Physician Assistant; Referring Provider Internal Medicine Hematology & Oncology; Visit Provider Internal Medicine Hematology & Oncology
DX: Z51.81 Encounter for therapeutic drug level monitoring (principal)
CPT/HCPCS: 93308; 93356

== ENCOUNTER 2022-11-08 15:16 | Observation (INO) | payer SELFPAY ==
[2022-11-08] VITALS (13 sets, daily range): BP systolic 126–195; BP diastolic 72–102; PULSE 76–99; RESP 14–18; TEMP 36.3–36.7; O2SAT 100; BMI 20.2
--- NOTE | 2022-11-08 | IMM_PTH ---
PATIENT: BATSHEVA CORNELL LOC: [facility]3 U#:[id number] AGE/SX: 57/F ROOM: [facility] [place] RE11/08/[address]: Dr. Florencio Guy MD : 1965 BED: 1 DIS: 11/09/2022 SPEC #: [id number] RECD: 11/12/22 13:17 STATUS: DAVID RERichard #: [id number] EMEKA: 11/08/22 00:[address]: Florencio Guy DEPT: IMMUNOHISTOCHEMISTRY RECD BY: Julisa Craft ENTERED: 11/12/22 13:20 SP TYPE: IMMUNO OTHR DR: MACARENA Pablo Tissues: A - Axillary lymph node, NOS B - Axillary lymph node, NOS Procedures: CK7 (add) Pankeratin (initial) Pankeratin (add) PHYSICIAN & INSTITUTION [place] [id number] SPECIMEN INFORMATION: Tissue Source: A - Left axillary sentinel lymph nodes, B - Left axillary sentinel lymph nodes Clinical Info: Left breast cancer Specimen Number: [id number] A1 & A2, B1-B3 CPT code: 94572 x2, 02349 x8 METHODOLOGY: Deparaffinized sections of prefer/formalin-fixed tissue or PAP/DQ stained slides are incubated with monoclonal/polyclonal antibodies/oligonucleotide probes. Localization is made via biotin free immunoperoxidase method. Appropriate controls are performed and reacted as expected. Results on target cell population are indicated in the following table: RESULTS: ANTIBODY / CLONE RESULT Block A1 AE1-3 (AE1/AE3/PCK26) negative CK7 (OV-TL12/30) negative Block A2 AE1-3 (AE1/AE3/PCK26) negative CK7 (OV-TL12/30) negative Block B1 AE1-3 (AE1/AE3/PCK26) negative CK7 (OV-TL12/30) negative Block B2 AE1-3 (AE1/AE3/PCK26) negative CK7 (OV-TL12/30) negative Block B3 AE1-3 (AE1/AE3/PCK26) negative CK7 (OV-TL12/30) negative These tests were developed and their performance characteristics determined by [facility]. They may not have been cleared or approved by the U.[place]. Food and Drug Administration. The FDA has determined that such clearance or approval is not necessary. The above immunohistochemical/dualISH markers are ordered and reviewed by the Pathologist. INTERPRETATION: A. Left axillary sentinel lymph nodes, biopsy: Two out of two lymph nodes, negative for carcinoma. B. Left axillary sentinel lymph nodes, biopsy: Three out of three lymph nodes, negative for carcinoma. AM:ash 11/15/2022
--- NOTE | 2022-11-08 | AXNB_PTH ---
PATIENT: BATSHEVA CORNELL LOC: [facility] U#:[id number] AGE/SX: 57/F ROOM: [facility] [place] RE11/08/[address]: Dr. Florencio Guy MD : 1965 BED: 1 DIS: 11/09/2022 SPEC #: [id number] RECD: 11/08/22 12:28 STATUS: DAVID RON #: [id number] EMEKA: 11/08/22 00:[address]: Florencio Guy DEPT: SURGICAL PATHOLOGY RECD BY: Julisa Craft ENTERED: 11/08/22 13:07 SP TYPE: AX NODE BX OTHR DR: MACARENA Pablo Tissues: A - Axillary lymph node, NOS B - Axillary lymph node, NOS C - Right breast, NOS D - Left breast, NOS Procedures: Frozen Section (charge) Frozen Section Add'l ([facility]) Surgery Specimen Level V HEADER OPERATION: Bilateral mastectomy PRE-OP DIAGNOSIS: Left breast cancer TISSUE SUBMITTED: A - Left axillary sentinel lymph nodes, FS, B - Left axillary sentinel lymph nodes, FS, C - Left breast, axillary aspect marked with suture tag, D - Right breast, suture tag mccloud axillary aspect FROZEN SECTION DIAGNOSIS A. Left axillary sentinel lymph nodes, biopsy: Two out of two lymph nodes, negative for metastatic carcinoma. B. Left axillary sentinel lymph nodes, biopsy: Three out of three lymph nodes, negative for metastatic carcinoma. MERT:ash 11/08/2022 MICROSCOPIC DIAGNOSIS A. Left axillary sentinel lymph nodes, biopsy: Two out of two lymph nodes, negative for metastatic carcinoma. See comment. B. Left axillary sentinel lymph nodes, biopsy: Three out of three lymph nodes, negative for metastatic carcinoma. See comment. C. Left breast, mastectomy: A minute focus of residual invasive carcinoma. See cancer summary in the comment section. D. Right breast, mastectomy: Breast tissue with extensive dense fibrosis. Focal microcalcifications. Nipple, no pathologic diagnosis. MERT:ash 11/12/2022 COMMENT A & B. The lymph nodes are negative for metastatic carcinoma on multiple H & E levels and immunohistochemical stains for cytokeratins ([id number]). C. INVASIVE BREAST CANCER SUMMARY: Procedure - total mastectomy Specimen laterality - left Tumor site - 9 and 12 o'clock as per clinical information. Tumor size - 1 x 1 mm (measured microscopically) Histologic type - invasive ductal carcinoma, no special type. Histologic Grade (Nam grade): Glandular/tubular differentiation - score 3 Nuclear pleomorphism - score 3 Mitotic count - score 1 Overall grade - grade 2 (score of 7) Tumor focality - single focus of residual invasive carcinoma. Ductal carcinoma in situ - not identified Lobular carcinoma in situ (LCIS) - not identified Tumor extension: Skin - skin is present and uninvolved Nipple - ductal carcinoma in situ does not involve nipple epidermis. Skeletal muscle - no skeletal muscle present. Margins - uninvolved by invasive carcinoma. Distance cannot be assessed, as the tumor is noted microscopically only. Regional Lymph nodes: Number of sentinel lymph nodes examined - 5 Total number of lymph nodes examined (sentinel and nonsentinel) - 5 Number of lymph nodes with macrometastases, micrometastases and isolated tumor cells - 0 Treatment effect in the breast - Almost complete response to presurgical therapy. Only a minute focus of residual tumor is noted. Treatment effect in the lymph nodes - no lymph node metastasis or prominent fibrous scarring in the nodes. 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 Dense fibrosis. Ancillary studies - previously performed on section of tumor ([id number] / [id number]). ER - negative (0%) [place] - negative (0%) Her2 ayan - positive (3+) Microcalcifications - present in non-neoplastic tissue. Clinical history - Please make reference to previous specimen ([id number]) left breast at 12 o'clock, needle core biopsy with diagnosis of invasive ductal carcinoma and left breast at 9 o'clock, needle core biopsy with diagnosis of invasive ductal carcinoma and [id number], left axillary lymph node tissue, core biopsy with diagnosis of lymph node tissue, negative for metastatic carcinoma. PATHOLOGIC STAGE: pT1mi(y) pN0 pMx The above summary is in compliance with [employer] [employer] ([employer]) Cancer Protocols Checklist and [place] [employer] on Cancer (AJCC), Staging Manual, 8th Ed. Case has been reviewed in consultation with Dr. So who concurs with the above diagnosis. IDC:[email or web address] MICROSCOPIC DESCRIPTION Slides are reviewed. GROSS DESCRIPTION A - Received fresh for frozen section diagnosis labeled with the patient's name is a specimen designated left axillary sentinel lymph node. The specimen consists of two pieces of adipose tissue measuring 2.5 x 1.5 x 0.5 cm and 0.5 x 0.5 x 0.5 cm. Two nodules consistent with lymph nodes are identified measuring 0.5 and 1.0 cm in greatest dimension. The entire specimen is submitted for frozen section diagnosis in two cassettes as follows: 1 - one lymph node, 2 - one bisected lymph node. / SJ: 11/09/2022 B - Received fresh for frozen section diagnosis labeled with the patient's name is a specimen designated left axillary sentinel lymph node. The specimen consists of two pieces of adipose tissue containing nodules measuring 2.0 x 1.5 x 0.7 cm and 3.0 x 2.0 x 0.5 cm. Three lymph nodes measuring 0.5 to 1.5 cm are identified. The lymph nodes are submitted in entirety for frozen section diagnosis in three cassettes with each cassette containing one lymph node. / SJ:ash 11/09/2022 C - Received in fixative is one container labeled with the patient's name and designated left breast, axillary aspect marked with suture tag. The specimen consists of a mastectomy specimen consisting of breast tissue with overlying skin ellipse. The breast tissue measures 22.0 x 19.0 x 6.5 cm and overlying skin ellipse measures 18.5 x 7.0 cm and nipple measures 1.2 cm in greatest dimension. No skin lesion is identified. The specimen is inked as follows: posterior - black, superior - blue, inferior - green, medial - red and lateral - orange. No skin lesion is identified. More dictation will follow after fixation. / SJ: 11/09/2022 Sections do not reveal any obvious mass lesion. Sections reveal wu-yellow cut surfaces with fibrous area. Sections of the central portion of the breast tissue also reveal a fibrous area with metallic clip. Boiler Fitter sections are submitted in 20 cassettes as follows: 1 - nipple, entirely submitted, 2??perpendicular medial, lateral and superior margins, 3 - perpendicular posterior and inferior margins, 4??more perpendicular sections of inferior margin, 5 - fibrous area with clip, 6-14 - key account representative sections adjacent to the fibrous area with clip, 15-20 - more key account representative sections away from the other areas. Sections are submitted after additional fixation. / SJ:ash 11/10/2022 D - Received in fixative is one container labeled with the patient's name and designated right breast, suture tag mccloud axillary aspect. The specimen consists of a mastectomy specimen consisting of breast tissue with overlying skin ellipse. The breast tissue measures 20.0 x 16.0 x 5.5 cm and overlying skin ellipse measures 18.0 x 7.0 cm and nipple measures 1.2 cm in greatest dimension. No skin lesion is identified. The specimen is inked as follows: posterior - black, superior - blue, inferior - green, medial - red and lateral - orange. Sections reveal wu-yellow adipose cut surfaces mixed with wu-white fibrous areas. No obvious mass lesion is identified. Sections will be submitted after fixation. / SJ:ash 11/09/2022 Boiler Fitter sections are submitted in ten cassettes as follows: 1 - nipple and areola, 2-4 - perpendicular inked margins, 5-10 - key account representative sections of breast parenchyma. Note, sections are submitted after additional fixation. / AM:ash 11/10/2022 TC: CPT: 92523 x4, 30136 x2, [id number] x3
--- NOTE | 2022-11-08 09:30 | NM_ITS ---
PROCEDURE: NUCLEAR MEDICINE Injection [place] Node - LEFT breast(s). REASON FOR EXAM: Female, 57 years old. Left breast cancer. TECHNIQUE: [place] node localization using radionuclide methods of the LEFT breast(s) was performed following subcutaneous administration of 1.2 mCi of of sulfur colloid Tc-99m. COMPARISON STUDIES : None FINDINGS: 1.2 mCi of technetium labeled sulfur colloid was injected subcutaneously in 4 equal aliquots for sentinel node imaging. NM/Lymph Node Injection Only IMPRESSION: 1.2 mCi of technetium labeled sulfur colloid was injected subcutaneously in 4 equal aliquots for sentinel node imaging. Electronically Signed: Tashi Ferguson MD at 15:36 EDT ,
[2022-11-08] MEDS: Lactated Ringers 1,000 ML 15 ML IV ×2 (09:46→17:02)
--- NOTE | 2022-11-08 10:40 | HP.PCM_ITS ---
History and Physical Date of Admission: 11/08/22 Visit Reasons: Discuss Breast Surgery Chief Complaint: discuss breast surgery Allergies atropine [From ] Allergy (Verified 11/01/22 08:52) Swellinghyoscyamine [From ] Allergy (Verified 11/01/22 08:52) Swellingphenobarbital [From ] Allergy (Verified 11/01/22 08:52) Swellingscopolamine [From ] Allergy (Verified 11/01/22 08:52) SwellingSulfa (Sulfonamide Antibiotics) Allergy (Verified 11/01/22 08:52) Hivespaclitaxel Adverse Reaction (Severe, Unverified 11/01/22 08:52) Rashclarithromycin [From Biaxin] Adverse Reaction (Verified 11/01/22 08:52) Nauseaprochlorperazine [From Compazine] Adverse Reaction (Verified 11/01/22 08:52) OtherDocetaxel Adverse Reaction (Severe, Uncoded 11/01/22 08:52) Rash Medications aspirin 81 mg tablet,delayed release (Lo-Dose Aspirin) 81 mg PO DAILY 01/07/17 [History Confirmed 11/01/22] calcium carbonate 600 mg calcium (1,500 mg) tablet 600 mg PO DAILY 01/07/17 [History Confirmed 11/01/22] rosuvastatin 5 mg tablet (Crestor) 5 mg PO DAILY 01/07/17 [History Confirmed 11/01/22] cholecalciferol (vitamin D3) 50 mcg (2,000 unit) capsule 50 mcg PO DAILY 06/30/22 [History Confirmed 11/01/22] coenzyme Q10 100 mg capsule (CoQ-10) 100 mg PO DAILY 06/30/22 [History Confirmed 11/01/22] riboflavin (vitamin B2) 100 mg tablet 100 mg PO DAILY 06/30/22 [History Confirmed 11/01/22] lidocaine-prilocaine 2.5 %-2.5 % topical cream 1 applic topical ONCE PRN PORT ACCESS 30 days #30 grams 07/06/22 [Rx Confirmed 11/01/22] ondansetron 8 mg disintegrating tablet 8 mg PO Q8H PRN nausea and vomiting #30 tabs 07/06/22 [Rx Confirmed 11/01/22] MAGIC MOUTH WASH (BMX) 180 mL suspension 15 ml PO .Q6HR #180 mL 07/27/22 [Rx Confirmed 11/01/22] nystatin 100,000 unit/mL oral suspension 1 ml PO Q6H #473 mL 07/27/22 [Rx Confirmed 11/01/22] diclofenac sodium 1 % topical gel (Voltaren Arthritis Pain) 2 g topical .prn 09/29/22 [History Confirmed 11/01/22] triamcinolone acetonide 0.1 % topical cream 1 applic topical BID #80 grams 10/06/22 [Rx Confirmed 11/01/22] hydrocodone-acetaminophen 5-325mg 5mg-325mg 1 tab PO Q8H PRN 10/20/22 [History Confirmed 11/01/22] hydrocodone-acetaminophen 5-325mg 5mg-325mg 1 tab PO QHS PRN pain 20 days #20 tabs 10/20/22 [Rx Confirmed 11/01/22] vitamin E 268 mg (400 unit) capsule 268 mg PO DAILY 10/28/22 [History Confirmed 11/01/22] PFSH Medical History Abnormal mammogram of left breast Abnormal ultrasound of breast Breast cancer, left Diarrhea Drug-induced toxic erythema Dyslipidemia Elevated BUN Encounter for chemotherapy management Encounter for education Herniated disc History of IBS History of stress test Hypokalemia Non-smoker Oral candidiasis Palmar plantar erythrodysaesthesia due to cytotoxic therapy PONV (postoperative nausea and vomiting) Post-menopausal Skin ulcer of left great toe with fat layer exposed Stomatitis Tachycardia Surgical History History of colonoscopy History of D&C Hx of tubal ligation S/P left breast biopsy Family History Sister Colon cancer, Onset Age: 42Mother Heart disease Kidney disease Lupus High cholesterolFather High cholesterol Hypertension Thyroid disorder Heart diseaseBrother Heart diseaseAunt Diabetes maternal Social History household members: 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 Davian Polo to proceed with a left total mastectomy with sentinel lymph node biopsy.. She is multiple densities within the left breast based upon MRI. She is already had a left axillary lymph node biopsy which was negative for disease although ultrasound did demonstrate multiple enlarged lymph nodes. She has had Taxotere and Taxol and on both occasion developed grade 3 hand-foot syndrome. 57-year-old female, postmenopausal with multifocal ( the largest estimated to be 6 cm in maximum diameter based on MRI) invasive ductal cancer of the left breast ER negative, AZ negative, HER2 overexpressed 3+, nuclear grade 3,Ki-67: 70%. Enlarged left axillary lymph nodes were negative on core biopsy Oncology plans are as follows: 1. Continue neoadjuvant systemic therapy with Herceptin, await recovery of hand-foot syndrome and schedule elective surgery. Taxanes will be permanently discontinued (received total 4 out of planned 6 cycles) due to severe quality of life affecting adverse reaction. Carboplatin combined with Herceptin plus or minus Perjeta would not be standard neoadjuvant therapy. May consider challenge with Perjeta postoperatively if there is residual cancer. Tolerated single agent trastuzumab well When that we placed the port the patient had intolerable nausea for 7 to 8 hours afterwards. She is requesting a prophylactic right total mastectomy at the same setting. My previous extensive notes reflect the following Allergies atropine [From ] Allergy (Verified 07/06/22 15:11) Swellinghyoscyamine [From ] Allergy (Verified 07/06/22 15:11) Swellingphenobarbital [From ] Allergy (Verified 07/06/22 15:11) Swellingscopolamine [From ] Allergy (Verified 07/06/22 15:11) SwellingSulfa (Sulfonamide Antibiotics) Allergy (Verified 07/06/22 15:11) Hivesclarithromycin [From Biaxin] Adverse Reaction (Verified 07/06/22 15:11) Nauseaprochlorperazine [From Compazine] Adverse Reaction (Verified 07/06/22 15:11) Other Medications aspirin 81 mg tablet,delayed release (Lo-Dose Aspirin) 81 mg PO DAILY 01/07/17 [History Confirmed 07/06/22] calcium carbonate 600 mg calcium (1,500 mg) tablet 600 mg PO DAILY 01/07/17 [History Confirmed 07/06/22] rosuvastatin 5 mg tablet (Crestor) 5 mg PO DAILY 01/07/17 [History Confirmed 07/06/22] cholecalciferol (vitamin D3) 50 mcg (2,000 unit) capsule 50 mcg PO DAILY 06/30/22 [History Confirmed 07/06/22] coenzyme Q10 100 mg capsule (CoQ-10) 100 mg PO DAILY 06/30/22 [History Confirmed 07/06/22] riboflavin (vitamin B2) 100 mg tablet 100 mg PO DAILY 06/30/22 [History Confirmed 07/06/22] dexamethasone 4 mg tablet 4 mg PO DAILY #12 tabs 07/06/22 [Rx Confirmed 07/06/22] lidocaine-prilocaine 2.5 %-2.5 % topical cream 1 applic topical ONCE PRN PORT ACCESS 30 days #30 grams 07/06/22 [Rx Confirmed 07/06/22] ondansetron 8 mg disintegrating tablet 8 mg PO Q8H PRN nausea and vomiting #30 tabs 07/06/22 [Rx Confirmed 07/06/22] PFSH Medical History?(Updated 07/06/22 @ 15:[address] Florencio Guy MD) Abnormal mammogram of left breast Abnormal ultrasound of breast Breast cancer, left Dyslipidemia Encounter for education Herniated disc History of IBS History of stress test Non-smoker PONV (postoperative nausea and vomiting) Post-menopausal Surgical History? History of colonoscopy History of D&C Hx of tubal ligation S/P left breast biopsy Family History? Sister Colon cancer,? Onset Age: 42Mother Heart disease Kidney disease Lupus High cholesterolFather High cholesterol Hypertension Thyroid disorder Heart diseaseBrother Heart diseaseAunt Diabetes ?? ? maternal Social History? household members:? 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 Never smoker alcohol intake:? never substance use type:? does not use HPI HPI HPI: Patient had a bilateral breast MRI extensive multifocal extensive disease of the left breast.? She also had a soft tissue ultrasound of the left axilla.? She presents today because the soft tissue ultrasound of July 02 demonstrates multiple lymph nodes of the left axilla with the largest being 2.1 cm.? Biopsy was recommended. Quarter Supervisor Required: No Is patient in pain?: No Allergies atropine [From ] Allergy (Verified 06/29/22 14:51) Swellinghyoscyamine [From ] Allergy (Verified 06/29/22 14:51) Swellingphenobarbital [From ] Allergy (Verified 06/29/22 14:51) Swellingscopolamine [From ] Allergy (Verified 06/29/22 14:51) SwellingSulfa (Sulfonamide Antibiotics) Allergy (Verified 06/29/22 14:51) Hivesclarithromycin [From Biaxin] Adverse Reaction (Verified 06/29/22 14:51) Nauseaprochlorperazine [From Compazine] Adverse Reaction (Verified 06/29/22 14:51) Other Medications aspirin 81 mg tablet,delayed release (Lo-Dose Aspirin) 81 mg PO DAILY 01/07/17 [History Confirmed 06/29/22] calcium carbonate 600 mg calcium (1,500 mg) tablet 600 mg PO DAILY 01/07/17 [History Confirmed 06/29/22] rosuvastatin 5 mg tablet (Crestor) 5 mg PO DAILY 01/07/17 [History Confirmed 06/29/22] PFSH Medical History?(Updated 06/29/22 @ 15:18 by Kathia Booth) Breast cancer Surgical History? Hx of tubal ligation S/P left breast biopsy Family History? Sister Heart disease High cholesterol Kidney disease LupusMother Heart disease Kidney disease Lupus High cholesterolFather High cholesterol Hypertension Thyroid disorder Social History? Smoking Status:? Never smoker HPI HPI HPI: 56-year-old female returns today to discuss left breast needle core biopsy 12 o'clock position and 10 o'clock position.? As noted below both biopsy sites demonstrated invasive ductal carcinoma nuclear grade 3.? Estrogen receptor negative.? Progesterone receptor negative.? HER2/ayan 3+. MICROSCOPIC DIAGNOSIS A.? Left breast at 12 o?clock, needle core biopsy: ?Invasive ductal carcinoma with the following characteristics: ?? ? Nuclear grade ? 3 ?? ? Maximal length ? 9.5 mm ?See comment.? B.? Left breast at 9 o?clock, needle core biopsy: ?Invasive ductal carcinoma with the following characteristics: ?? ? Nuclear grade ? 3 ?? ? Maximal length ? 11.0 mm RESULTS:?ANTIBODY / CLONE ? RESULT P53? (DO-7) ? positive, 85% Ki-67? (30-9)? positive, 70% CK8? (13thbrL37)? positive CK5-6? (D5 & 1684) ? ? negative Calponin-1 (GE177P) ? ? ? negative P40? (BC28) ? negative E-Cad? (ECH-6) ? ? ? positive COOPER-2? (SP21) ? positive ? MORPHOMETRIC ANALYSIS? ? ER (clone [id number])? 0% AZ (clone 16/1E2) ? 0% Her-2Neu (clone CB11)? 3+ My previous note of June 24, 2022 represents the following Visit Reasons:?Birads 5 Left Breast Chief Complaint: birads 5 left breast/b Is patient in pain?: No Allergies atropine [From ] Allergy (Verified 06/24/22 15:27) Swellinghyoscyamine [From ] Allergy (Verified 06/24/22 15:27) Swellingphenobarbital [From ] Allergy (Verified 06/24/22 15:27) Swellingscopolamine [From ] Allergy (Verified 06/24/22 15:27) SwellingSulfa (Sulfonamide Antibiotics) Allergy (Verified 06/24/22 15:27) Hivesclarithromycin [From Biaxin] Adverse Reaction (Verified 06/24/22 15:27) Nauseaprochlorperazine [From Compazine] Adverse Reaction (Verified 06/24/22 15:27) Other Medications aspirin 81 mg tablet,delayed release (Lo-Dose Aspirin) 81 mg PO DAILY 01/07/17 [History Confirmed 06/24/22] calcium carbonate 600 mg calcium (1,500 mg) tablet 600 mg PO DAILY 01/07/17 [History Confirmed 01/07/17] rosuvastatin 5 mg tablet (Crestor) 5 mg PO DAILY 01/07/17 [History Confirmed 06/24/22] PFSH Surgical History?(Updated 06/24/22 @ 15:22 by Carina Crystal) Hx of tubal ligation Family History?(Updated 06/24/22 @ 15:25 by Carina Crystal) Sister Heart disease High cholesterol Kidney disease LupusMother Heart disease Kidney disease Lupus High cholesterolFather High cholesterol Hypertension Thyroid disorder Social History? Smoking Status:? Never smoker HPI HPI HPI: 56-year-old female is being referred by Dr. France Luevano for surgical consultation regarding abnormal breast mammogram and ultrasound findings.? Written copy of my surgical consult recommendations will return to her. On May 31, 2022 the patient had her annual gynecologic exam. A0.? Menarche at age 11.? First child was born when she was 22.? She did breast-feed.? No estrogen replacement.? No history of previous breast biopsy.? No family history of breast cancer. She herself is not able to palpate any masses. She otherwise is extraordinarily healthy does physical exercise and workouts almost daily. Most recent previous mammogram was 2020.? Menopause at age 51. Recent clinical breast exam was not remarkable. The patient does have a history of a sister who had colon cancer in her 40s. At [facility] on June 23, 2022 she had bilateral screening mammography.? Interpreted as BI-RADS Category 5 the breast were noted to be very dense.? The right breast was felt to be unremarkable.? The left breast had focal calcifications mid left breast 9 o'clock position.? A four-quadrant left breast ultrasound was performed on June 23, 2022.? At the 12 o'clock position there is an 8 x 7 x 10 mm sized solid nodule with calcifications felt to be suspicious. Left breast solid suspicious nodule 9 o'clock position 28 x 18 x 12 mm with calcifications felt to correlate with the mammographic findings Left breast 12 o'clock position 4 x 3 x 5 mm simple cyst Left breast solid suspicious appearing lesion 9 o'clock position 4 x 7 x 2 mm. Personally reviewed the images.? The mammograms quite dense.? The lesions identified on ultrasound much more dramatic.? There is miss labeling of the ultrasound pictures discussing right radial positioning and this was a left breast ultrasound. ROS General General: No weight change, appetite, fatigue, colon cancer, breast cancer or weakness HEENT HEENT: No difficulty swallowing, eye injury, eye surgery, swollen glands or hoarseness Endo Endocrine: No thyroid disease, diabetes mellitus, thyroid cancer, Hair loss, heat intolerance or cold intolerance Skin Skin: No rash or changing moles Breast Breast: No left breast lump, right breast lump, nipple discharge, breast pain, abnormal mammogram, abnormal US or breast enlargement Musc Musculoskeletal: No back problems, arthritis, rheumatoid arthritis, gout or joint pain Cardio Cardiovascular: No murmur, pacemaker, heart disease, atrial fibrillation, high blood pressure, heart attack, heart stent, palpitations, shortness of breat with exertion or chest pain Psych Psychiatric: No depression, anxiety or hearing voices Resp Respiratory: No shortness of breath, No sleep apnea, No cough, No COPD, No asthma, No emphysema and No wheezing Gastro Gastrointestinal: No abdominal pain, No nausea or vomiting, No diarrhea, No constipation, No blood in stool, No acid reflux, No hemorrhoids, No ulcers, No gallbladder problem and No black,tarry stools Ten Hematologic: No blood thinners, No blood disorders, No bleeding, No anemia and No blood clots Neuro Neurologic: No system reviewed and no additional complaints, except as documented, No as per HPI, No abnormal gait, No abnormal hearing, No abnormal movements, No abnormal speech, No behavioral changes, No burning sensations, No confusion, No convulsions, No disequilibrium, No dizziness, No localized weakness, No frequent falls, No headache(s), No lack of coordination, No loss of vision, No memory loss, No numbness, No other visual disturbances, No radicular pain, No restless legs, No sensory deficit, No syncope, No tingling, No tremor(s), No weakness and No other Exam Const General: cooperative, healthy appearing, comfortable and no acute distress Nutritional Appearance: average body habitus Orientation: alert, awake and oriented x3 [facility] Head: normal to inspection Eyes General: appearance normal, both eyes and all related structures Neck Neck: normal visual inspection Chest Chest palpation & inspection: normal inspection of the chest Other: Right breast: No focal mass.? No nipple discharge.? Diffuse fibrous change particularly in the upper outer quadrant.? No axillary or clavicular adenopathy Left breast: Nondescript fibrous mass 10 o'clock position upper inner left breast periareolar.? No nipple discharge no skin distortion.? Diffuse fibrous change upper outer quadrant left breast.? No axillary or clavicular adenopathy appreciated Resp Effort & Inspection: normal respiratory effort Auscultation: clear to auscultation bilaterally Cardio Rate: regular rate Rhythm: regular rhythm GI Palpation: soft and no hepatosplenomegaly Auscultation: normal bowel sounds Musc Cervical Spine: normal cervical lordosis Skin General: no rashes or lesions noted Neuro General: patient alert, patient awake and patient oriented x3 Cognition: normal cognition Extrem General: no calf tenderness Office Procedures Biopsy Provider Documentation Ultrasound-guided needle core biopsy left breast 12 o'clock position 3 cm Ultrasound-guided needle core biopsy left breast 10 o'clock position +2 cm Timeout informed consent was obtained.? The patient taken the procedure room placed upon the table.? A left shoulder roll was placed.? The left breast was copiously prepped with Betadine.? Under ultrasound guidance what I felt was the 12:00 lesion measuring approximately the 8 x 7 x 10 m size with calcifications in it.? I utilized 1% lidocaine mixed 50-50 with 0.5% Marcaine a total of 6 cc.? Small stab incision was created.? A 14-gauge Monopty needle was advanced to prefire depth.? Pre and post fire films were obtained.? 3 cores were obtained.? A ribbon marking clip was placed at 12 o'clock position.? Pressure was held for hemostasis which was achieved I then inspected the left breast 10 o'clock position rather than the 9 o'clock position identified the sizable irregular mass with microcalcifications at that location.? 1% lidocaine mixed 50-50 with 0.5% Marcaine was used as local anesthetic.? 10 cc was used.? A small stab incision was created.? A 14-gauge Monopty needle was advanced to depth.? A single core was obtained.? A coil clip was placed at this 10 o'clock position.? Pressure was held for hemostasis. Each area was treated with Steri-Strip Telfa OpSite.? She tolerated procedure well no apparent complication.? The specimens upon obtaining them were immediately transmitted to formalin for analysis. Biopsy Breast Biopsy: 45020 US Guidance (x2) Procedure Time Out Time Out Informed consent given: Yes Consent signed: Yes Time out checklist: patient, procedure, site marked/identified, positioning of patient, supplies available, allergies confirmed and team agrees on procedure Time out staff in room: Yes Time out verified: Yes Time out date: 06/24/22 Time out time: 15:33 Assessment and Plan Assessment and Plan (1) Abnormal mammogram of left breast: ?Status:?Acute (2) Abnormal ultrasound of breast: ?Status:?Acute ?Plan: 56-year-old female.? BI-RADS 5 left breast ultrasound/mammogram.? A total of 4 items are identified with 2 being suspicious.? 2 areas of concern being at 12:00 and very concerning at what is said to be 9:00 but I measured out to be at 10:00.? Biopsy samples have been obtained.? It is of note that on mammogram the 2 densities are not clearly visualized and were only identified truly with ultrasound.? The patient has extraordinarily dense breasts bilaterally and certainly is at risk for having additional lesions bilaterally. I recommended the patient that we obtain breast MRI. I have additionally discussed with the patient my concerns regarding potential findings.? She is aware that we will want to obtain medical oncology consultation and likely radiation oncology consultation.? We will await pat jacquelinegy and I will have her return next week to review results and further recommendations. I appreciate the opportunity of assisting with the surgical care.? We did provide activity and wound care instructions. Copy: Dr. France Luevano and BOYD Dong M.D., F.A.C.S Assessment and Plan Assessment and Plan (1) Breast cancer: ?Status:?Acute ?Plan: With the patient's present we had discussion regarding treatment options.? We discussed the team approach involving surgeon and medical oncologist and radiation oncologist.? We discussed the potential multifocality of this lesion although the MRI is still pending. We discussed left total mastectomy with sentinel lymph node biopsy.? We touched upon prophylactic right mastectomy.? We discussed no reconstruction or immediate reconstruction or delayed reconstruction.? We additionally discussed potential placement of the port to facilitate neoadjuvant therapy. She has had an opportunity to ask and have questions answered.? She did mention potentially seeking referral to a tertiary center in the [facility] in [place].? She was assured that we could assist with that at her discretion.? I thought that it would be reasonable and feasible to get a oncology appointment locally to see how she fared with that information and then she can decide how she would like to proceed from there. Both she and her have had an opportunity ask and have questions answered.? They have been provided hard copies of the pathology report.? They are aware that the interpretation of the MRI is pending. Further surgical follow-up will be pending the patient's needs and desires.? I appreciate the opportunity of assisting with her surgical care Copy: BOYD Dong M.D., F.A.C.S June 29, 2022 STUDY: ? BILATERAL BREAST MR WITHOUT AND WITH CONTRAST REASON FOR EXAM: ? Female, 56 years old. ? Abnormal left diagnostic mammogram and left breast ultrasound. TECHNIQUE: ? Multi-sequence multi-echo imaging of both breasts was performed with a dedicated breast coil.? T1-weighted and T2-weighted images were performed before the administration of contrast.? T1-weighted images were also performed after the intravenous administration of 13 mL of Clariscan contrast. COMPARISON:? ? Diagnostic left mammogram dated June 23, 2022 and left breast ultrasound dated June 23, 2022. FINDINGS: RIGHT BREAST: Scattered fibroglandular densities with no background enhancement. No abnormal enhancing masses or areas of non-mass enhancement in the right breast. LEFT BREAST: Scattered background enhancement. Irregular enhancing mass in the upper medial aspect of the left breast measuring approximately 4.3 cm x 6 cm x 3 cm. Mass extends to the midportion of the medial aspect of the breast. 2 small enhancing masses beneath the major area of enhancement about 2 cm from the mass. Multiple small enhancing masses in the subareolar region, one of which is in the lateral aspect of the left breast measuring 1.4 cm x 8 mm x 1.4 centimeters. This lesion is also highly suspicious for tumor involvement. These findings are compatible with probable multicentric tumor. No enlarged or abnormal lymph nodes. No abnormality in the visualized regions of the chest or liver. MRI/Breast Bilateral W/O and W IMPRESSION: Multiple enhancing masses in the left breast in different quadrants compatible with multicentric tumor involvement. ? Right breast shows no abnormality and there is no adenopathy. ? ? CATEGORY: BIRADS Category 5:? Highly Suggestive of Malignancy - Appropriate Action Should Be Taken.? A letter regarding these results will be sent to the patient by the facility within 30 days. ? Electronically Signed: Kendall Torres, at 10:55 EDT , July 02, 2022 STUDY: ? SUPERFICIAL ULTRASOUND -? LEFT AXILLARY REGION. REASON FOR EXAM: ? Female, 56 years old.? STAGING LEFT BREAST CANCER -- LEFT AXILLA TECHNIQUE: ? A superficial ultrasound was performed with real-time and static mujica-scale imaging. COMPARISON: ? None. FINDINGS: Multiple lymph nodes are seen in the left axilla. All the lymph nodes have a central echogenic hilum with hypoechoic cortex suggestive of benign anatomical appearance. The largest lymph node measures 2.1 cm x 1.4 cm x 1.6 cm. With the patient''s history of left breast carcinoma, biopsy may be indicated. US/Ext Non Vasc Limited/Soft Tiss IMPRESSION: Multiple lymph nodes in the left axillary region. The larger measures 2.1 cm x 1.4 cm x 0.6 cm. Biopsy is recommended with a history of a left breast carcinoma. ? Electronically Signed: Tashi Ferguson MD at 14:54 EDT Reading Location ID and State: [id number] / [place] ROS General General: No weight change, appetite, fatigue, colon cancer, breast cancer or weakness HEENT HEENT: No difficulty swallowing, eye injury, eye surgery, swollen glands or hoarseness Endo Endocrine: No thyroid disease, diabetes mellitus, thyroid cancer, Hair loss, heat intolerance or cold intolerance Skin Skin: No rash or changing moles Breast Breast: No left breast lump, right breast lump, nipple discharge, breast pain, abnormal mammogram, abnormal US or breast enlargement Musc Musculoskeletal: No back problems, arthritis, rheumatoid arthritis, gout or joint pain Cardio Cardiovascular: No murmur, pacemaker, heart disease, atrial fibrillation, high blood pressure, heart attack, heart stent, palpitations, shortness of breat with exertion or chest pain Psych Psychiatric: No depression, anxiety or hearing voices Resp Respiratory: No shortness of breath, No sleep apnea, No cough, No COPD, No asthma, No emphysema and No wheezing Gastro Gastrointestinal: No abdominal pain, No nausea or vomiting, No diarrhea, No constipation, No blood in stool, No acid reflux, No hemorrhoids, No ulcers, No gallbladder problem and No black,tarry stools Ten Hematologic: No blood thinners, No blood disorders, No bleeding, No anemia and No blood clots Neuro Neurologic: No system reviewed and no additional complaints, except as documented, No as per HPI, No abnormal gait, No abnormal hearing, No abnormal movements, No abnormal speech, No behavioral changes, No burning sensations, No confusion, No convulsions, No disequilibrium, No dizziness, No localized weakness, No frequent falls, No headache(s), No lack of coordination, No loss of vision, No memory loss, No numbness, No other visual disturbances, No radicular pain, No restless legs, No sensory deficit, No syncope, No tingling, No tremor(s), No weakness and No other Office Procedures Biopsy Provider Documentation Ultrasound guided needle core biopsy left axillary lymph node Timeout informed consent was obtained.? The patient taken procedure room placed on the table left shoulder was placed the left axilla was copiously prepped with Betadine ultrasound was performed and I felt that the enlarged lymph node that its been seen on preintervention imaging was identified.? Under ultrasound guidance 1% lidocaine mixed 50-50 with 0.5% Marcaine was used as local anesthetic.? A total of 8 cc was used.? Small stab incisions created.? For continued Monopty needle was advanced to prefire depth.? Pre and post fire films were obtained.? 3 cores were obtained.? It is of note that subsequent to the first quarter being obtained the imaging appeared a little smeared and it was challenging to remain identified on the lymph node.? Patient tolerated the procedure very well there was little to no discomfort.? Cores were immediately placed in formalin.? A marking clip was left in position.? Pressure was held for hemostasis and hemostasis was nicely intact with minimal blood loss.? Sterile dressings applied she was given activity and wound care instructions. Florencio Guy M.D., F.A.C.S. Biopsy Breast Biopsy: [id number] US Guidance Procedure Time Out Time Out Informed consent given: Yes Consent signed: Yes Time out checklist: patient, procedure, site marked/identified, positioning of patient, supplies available, allergies confirmed and team agrees on procedure Time out staff in room: Yes Time out verified: Yes Time out date: 07/06/22 Time out time: 14:50 Assessment and Plan Assessment and Plan (1) Adenopathy: ?Status:?Acute ?Plan: Left axillary adenopathy.? Needle core biopsy under ultrasound guidance performed although this was technically demanding.? Pathology pending. The patient is additionally scheduled for July 09, 2022 to have a right internal jugular port placed to facilitate neoadjuvant chemotherapy.? She has had an opportunity to ask and have questions answered.? We will proceed as noted. Copy: Dr. Davian Polo and BOYD Dong M.D., F.A.C.S. Plan Copy:Justyna Guy M.D., F.A.C.S. ROS General General: No weight change, appetite, fatigue, colon cancer, breast cancer or weakness HEENT HEENT: No difficulty swallowing, eye injury, eye surgery, swollen glands or hoarseness Endo Endocrine: No thyroid disease, diabetes mellitus, thyroid cancer, Hair loss, heat intolerance or cold intolerance Skin Skin: No rash or changing moles Breast Breast: No left breast lump, right breast lump, nipple discharge, breast pain, abnormal mammogram, abnormal US or breast enlargement Musc Musculoskeletal: No back problems, arthritis, rheumatoid arthritis, gout or joint pain Cardio Cardiovascular: No murmur, pacemaker, heart disease, atrial fibrillation, high blood pressure, heart attack, heart stent, palpitations, shortness of breat with exertion or chest pain Psych Psychiatric: No depression, anxiety or hearing voices Resp Respiratory: No shortness of breath, No sleep apnea, No cough, No COPD, No asthma, No emphysema and No wheezing Gastro Gastrointestinal: No abdominal pain, No nausea or vomiting, No diarrhea, No constipation, No blood in stool, No acid reflux, No hemorrhoids, No ulcers, No gallbladder problem and No black,tarry stools Ten Hematologic: No blood thinners, No blood disorders, No bleeding, No anemia and No blood clots Neuro Neurologic: No system reviewed and no additional complaints, except as documented, No as per HPI, No abnormal gait, No abnormal hearing, No abnormal movements, No abnormal speech, No behavioral changes, No burning sensations, No confusion, No convulsions, No disequilibrium, No dizziness, No localized weakness, No frequent falls, No headache(s), No lack of coordination, No loss of vision, No memory loss, No numbness, No other visual disturbances, No radicular pain, No restless legs, No sensory deficit, No syncope, No tingling, No trem or(s), No weakness and No other Exam Const General: cooperative, healthy appearing and comfortable Nutritional Appearance: underweight Orientation: alert and awake [facility] Head: normal to inspection Eyes General: appearance normal, both eyes and all related structures Neck Neck: normal visual inspection Chest Chest palpation & inspection: normal inspection of the chest Other: Right IJ port in place Resp Effort & Inspection: normal respiratory effort Auscultation: clear to auscultation bilaterally Cardio Rate: regular rate Rhythm: regular rhythm GI Inspection: normal to inspection Palpation: soft and no hepatosplenomegaly Musc Cervical Spine: normal cervical lordosis Skin General: no rashes or lesions noted Neuro General: patient alert, patient awake and patient oriented x3 Extrem General: no calf tenderness Psych Appearance: grossly normal Assessment and Plan Assessment and Plan (1) Breast cancer, left: Status: Acute Qualifiers: Breast location: overlapping sites of breast Estrogen receptor status: negative Patient sex: female Qualified Code(s): C50.812 - Malignant neoplasm of overlapping sites of left female breast; Z17.1 - Estrogen receptor negative status [ER-] Plan: 57-year-old female. Fortunately she is now once again progressing well status post her chemotherapy reaction. It is of note that she had significant nausea even after the propofol given for her port placement. She is very much i nterested in proceeding with a right prophylactic mastectomy in part due to her drug intolerance. We discussed that in addition to her planned left total mastectomy with left axillary sentinel lymph node biopsy using nuclear tracer and blue dye with potential conversion to a left axillary lymph node dissection if indicated. She presents with her today. She has had an opportunity to ask and have questions answered. At this point she does not believe that you she will be pursuing reconstructive techniques. She is very much concerned however about the anesthesia complications. We have had an opportunity to discuss the techniques of the surgical procedure and potential anticipations and complications. She is aware that drains will be placed and that she will be going home with drains in place. We will try to schedule and proceed in a timely fashion. I appreciate the ongoing opportunity of assisting with her surgical care. I will need to take special note of the right IJ port and exclude this from the right total mastectomy excision. Copy: Cal Lopez PA-C and Dr. Davian Guy M.D., F.A.C.S I have examined the patient and the H&P has been reviewed. There are no clinical changes since date of exam. Florencio Guy M.D., F.A.C.S.
--- NOTE | 2022-11-08 10:54 | DCINST_ITS ---
Discharge Instructions Procedure Breast Surgery Diet Discharge Diet: No restrictions Activity Discharge Activity: May Not Drive (for 2-3 days or while taking narcotic pain meds.) May shower in (days): 1 Lifting Restrictions: 10 pounds for 1 week. Dressing / Incision Call your doctor if your incision/area has: Continuous Slow Oozing and Sudden Increased Bleeding Call your doctor if you observe: Fever of 101 or Higher Suture Line Care: Avoid Pulling/Pushing and Avoid Pinching/Bending Remove Dressing in: 1 day Additional Dressing/Incision Instructions:: Empty measure and record each of your drains individually. You may change your drain dressings daily and use a Q-tip and peroxide to cleanse around the drains then apply dry gauze and paper tape Follow Up Care Please Follow Up With: Florencio Guy MD When: Please contact the office on with report of the amount of drainage. This will help determine an appropriate office follow-up date [phone] Test Results: Test results from this visit will be discussed in further detail at your follow- up appointment, if applicable. Discharge Plan Admission Admit Date/Time: 11/08/22 15:16 Primary Reason for Your Visit: Left breast cancer, prophylactic right mastectomy Attending Provider: Florencio Guy Primary Care Provider: Justyna Lopez Discharge Orders/Prescriptions Prescriptions: Continued cholecalciferol (vitamin D3) 50 mcg (2,000 unit) capsule 50 mcg PO DAILY riboflavin (vitamin B2) 100 mg tablet 100 mg PO DAILY ondansetron 8 mg tablet,disintegrating 8 mg PO Q8H PRN (Reason: nausea and vomiting) Qty: 30 1RF hydrocodone-acetaminophen 5-325 mg tablet 1 tab PO Q8H PRN (Reason: pain) calcium carbonate 600 MG tablet 600 mg PO DAILY Patient Comments: SUPPLEMENT rosuvastatin [Crestor] 5 MG tablet 5 mg PO DAILY Patient Comments: CHOLESTEROL alprazolam 0.5 mg tablet 0.25 mg PO QHS PRN PRN (Reason: anxiety) Patient Comments: TAKE ONE TABLET BY MOUTH EVERY 6 HOURS NEEDED vitamin E 268 mg (400 unit) capsule 268 mg PO DAILY Held aspirin [Lo-Dose Aspirin] 81 MG tablet,delayed release (DR/EC) 81 mg PO DAILY Hold Instructions: Resume on 11/22/22. Patient Comments: WAS TOLD TO ASK ABOUT STOPPING Referrals / Follow Up: Justyna Lopez, PA [Primary Care Provider] - Disposition Disposition (needs filled in before D/C Order can be placed): Home, Self Care
[2022-11-08] MEDS: Cefazolin 2 GM in 0.9% Normal Saline 100 ML IV (11:11)
[2022-11-08] MEDS: Isosulfan Blue 1% 5 ML Vial (11:19)
--- NOTE | 2022-11-08 15:22 | OP.PCM_ITS ---
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 Right total mastectomy prophylactic Description of Surgical Findings:: Timeout informed consent was obtained. 57-year-old female was taken to the operating room she had previously undergone nuclear tracer and injection left breast per radiology. She underwent general anesthesia. Both arms were carefully wrapped with soft rolls and placed at right angle to the table. The breasts were copiously prepped. Prior to doing this I injected 3 cc of isosulfan blue dye and massaged for 4 minutes. Subsequently I mapped out a left breast transverse elliptical excision. Using electrocautery for dissection and hemostasis with addition of interrupted 3-0 Vicryl suture ligatures for hemostasis created the left superior flaps up close to the costal margin then dissected laterally toward the axilla was able to identify the blue dye tracking dissected that down to 2 sets of lymph nodes. One had more blue dye staining and was larger and more inferior and the other had neoprobe signal and was slightly more superior. I carefully and tediously dissected these lymph nodes free with hemostasis obtained electrocautery and hemoclips were indicated. Specimens were sent to pathology and frozen section was returned during the procedure suggesting 5 sentinel lymph nodes all negative. I then performed the inferior flap on the left with the same technique. Sterile water was used to irrigate. 2 stab incisions were made inferior and lateral and a 15 round HAN drain was placed to the inferior margin and continue onto the superior margin while the more lateral drain was shortened and placed to the axilla. Each drain was secured with 3-0 nylon. The mastectomy site then was closed meticulously with multiple simple 3-0 Vicryl sutures to try to imbricate the flaps to the chest wall. Then the subdermal tissues approximated up to 3-0 Vicryl and where needed simple sutures of interrupted 4-0 Monocryl. Steri-Strips applied. That area was then completely draped off and attention was now drawn to the right breast. All gloves and gowns were changed. Handles were placed and new abdominal drapings so now to keep the right breast completely separate from the previous dissection on the left. A right total mastectomy was performed with a similar features making a transverse elliptical excision. Superior and inferior flaps created with electrocautery and interrupted 3-0 Vicryl used to assist with hemostasis. A single HAN drain was exited inferior laterally secured with 3-0 nylon and placed both to the inferior and superior flap. Again the mastectomy flaps were secured to the chest wall and then subdermal tissues approximated up to 3-0 Vicryl and interrupted 4-0 Monocryl were indicated. Steri-Strips applied. The drains were subsequently activated bilaterally. Telfa and bulky dry dressings applied followed by bias ply wrap. Sponge and instrument and needle counts were reported to the surgeon to be correct. Specimen left total mastectomy with left axillary sentinel lymph nodes x5, right total mastectomy Blood loss 200 cc HAN drains 15 round on the left x2 and on the right x1 Patient tolerated the procedure well was taken to the recovery room in satisfied condition without apparent complication Florencio Guy M.D., F.A.C.S. Surgeon: Florencio Guy Type of Anesthesia: General Anesthesiologist: Kendall Choudhary
--- NOTE | 2022-11-08 16:20 | SUR.PHASEI ---
ARRIVES TO PACU C/O NAUSEA, HAVING DRY HEAVES w/ BRIGHT GREEN EMESIS. REFUSING OFFERED ANTIEMETICS THOUGH SHE SPECIFICALLY REQUESTED PHENERGAN 6.25 MG BUT INSISTED SHE NOT BE GIVEN IT IV OR IM BECAUSE IT MAKES ME DIZZY... I DON'T WANT TO BE DIZZY. EDUCATED THAT ALL ANTIEMETICS HAVE THE POTENTIAL OF CAUSING DIZZINESS. THEN STATES SHE WANTS A PHENERGAN SUPPOSITORY. ATTEMPTED TO EDUCATE PATIENT BUT INSISTENT ON HER OWN WAY. CALLED DR LUX BACK TO DISCUSS. WILL MEDICATE x [address] CUELLO STOPPED IN TO PACU, AWARE OF NAUSEA/DRY HEAVES AND INSISTENCE ON RECTAL SUPP.
[2022-11-08] MEDS: proMETHazine 12.5 MG Suppos. RC ×2 (16:50→19:38)
[2022-11-08] MEDS: Acetaminophen 325 MG Tablet 650 MG PO (21:22)
[2022-11-08] MEDS: ALPRAZolam 0.25 MG Tablet PO (21:40)
[2022-11-09 02:52] VITALS: BP 122/72; PULSE 80; RESP 18; TEMP 36.3; O2SAT 98
[2022-11-09] MEDS: Acetaminophen 325 MG Tablet 650 MG PO ×2 (03:27→09:42)
--- NOTE | 2022-11-09 05:34 | PCM.PN.SRG ---
Subjective Subjective Patient finally ceased about 10 PM. She is currently resting comfortably and has no particular concerns. Objective Data Objective Data Vital Signs: Vital Signs Temp Pulse Resp BP Pulse Ox O2 Del Method O2 Flow Rate 97.4 F L 80 18 122/72 H 98 Room Air 2 11/09/22 02:52 11/09/22 02:52 11/09/22 02:52 11/09/22 02:52 11/09/22 02:52 11/09/22 02:52 11/08/22 18:31 Oxygen Flow Rate (L/min) 2 Oxygen Delivery Method Room Air Weight: 133 lb 6.4 oz Body Mass Index (BMI) 20.2 Intake & Output: Intake and Output for Last 24 Hours 11/07/22 11/08/22 11/09/22 23:59 23:59 23:59 Intake Total 2110 / 2310 200 / 200 Output Total 171 / 191 20 / 20 Balance 1939 / 2119 180 / 180 Radiography Diagnostic Testing: Radiology Impression [place] Node 11/08/22 09:30 IMPRESSION: 1.2 mCi of technetium labeled sulfur colloid was injected subcutaneously in 4 equal aliquots for sentinel node imaging. Electronically Signed: Tashi Ferguson MD at 15:36 EDT , Physical Exam Resp Resp Narrative: Ecchymosis left chest wall flap. Both appear to be clean. Assessment & Plan Assessment/Plan (1) Breast cancer, left: QUALIFIERS: Breast location: overlapping sites of breast Estrogen receptor status: negative Patient sex: female Qualified Code(s): C50.812 - Malignant neoplasm of overlapping sites of left female breast; Z17.1 - Estrogen receptor negative status [ER-] PLAN: The patient appears to be making steady progress. Plan for dressing changes today and then discharge. She will contact the office on with report regarding her drainage. Florencio Guy M.D., F.A.C.S.
[2022-11-09 06:20] VITALS: BP 111/74; PULSE 72; RESP 18; TEMP 36.5; O2SAT 100
--- NOTE | 2022-11-09 08:51 | PHA.DC.MR.R ---
Pharmacy [place] Med Reconciliation Pharmacy Service has performed discharge medication reconciliation for this patient. The patient's discharge medication list was reviewed for discrepancies and discrepancies were resolved. Medications at Discharge Home Medications aspirin 81 mg tablet,delayed release (Lo-Dose Aspirin) 81 mg PO DAILY 01/07/17 calcium carbonate 600 mg calcium (1,500 mg) tablet 600 mg PO DAILY 01/07/17 rosuvastatin 5 mg tablet (Crestor) 5 mg PO DAILY 01/07/17 cholecalciferol (vitamin D3) 50 mcg (2,000 unit) capsule 50 mcg PO DAILY 06/30/22 riboflavin (vitamin B2) 100 mg tablet 100 mg PO DAILY 06/30/22 ondansetron 8 mg disintegrating tablet 8 mg PO Q8H PRN nausea and vomiting #30 tabs 07/06/22 hydrocodone-acetaminophen 5-325mg 5mg-325mg 1 tab PO Q8H PRN pain 10/20/22 vitamin E 268 mg (400 unit) capsule 268 mg PO DAILY 10/28/22 alprazolam 0.5 mg tablet 0.25 mg PO QHS PRN PRN anxiety 11/08/22
--- NOTE | 2022-11-09 09:30 | WOUNDNOTE ---
was asked to see patient for dressing and drain care. patient is POD#1 bilateral mastectomy for left breast cancer. patient states she had some nausea last evening, but is much improved today. states he will be assisting with the daily drain care. this nurse removed the dressings. there was a small amount of old dry drainage noted on the old dressings. incisions are well approximated with steri strips in place. some mild ecchymosis noted to the left axilla. states some tenderness. Pt has 2 HAN drains to the left side and one on the right. cleaned the HAN drain sites with peroxide. placed a split gauze followed by a dry gauze and secured with paper tape. instructed pt and how to empty the drains and strip the tubing as needed. both aware to record the drainage from each drain. applied dry dressings over the incisions and reapplied the soft cotton roll. pt tolerated well. all questions answered. both very appreciative of care.
[2022-11-09 09:48] VITALS: BP 126/76; PULSE 90; RESP 16; TEMP 37.2; O2SAT 99
== END 2022-11-09 10:30 | disposition home or self-care (01) ==
LOC: SDC 15:49 → MS3 15:50
PROVIDERS: Admitting Provider Surgery; PCP Physician Assistant; Referring Provider Surgery; Visit Provider Surgery
PROC: (CPT 19307; principal; 2022-11-08 10:45)
DX: C50.412 Malignant neoplasm of upper-outer quadrant of left female breast (principal); E78.5 Hyperlipidemia, unspecified; R59.0 Localized enlarged lymph nodes; Z78.0 Asymptomatic menopausal state; Z17.1 Estrogen receptor negative status [ER-]; Z40.01 Encounter for prophylactic removal of breast; Z79.899 Other long term (current) drug therapy; Z79.82 Long term (current) use of aspirin
CPT/HCPCS: 19303; 00400; 38525; 38792; 88305; 88307; 88331; 88332; 88341; 88342; 94668; 99221; A4648; A9541; J7120; G0378; J2405; Q9968

== ENCOUNTER 2022-12-09 08:40 | Outpatient (RCR) | payer SELFPAY ==
[2022-11-02 00:42] VITALS: BP 142/82; PULSE 92; RESP 16; TEMP 36.1; BMI 19.3
[2022-12-09 08:51] VITALS: BP 128/66; PULSE 73; RESP 18; TEMP 35.1; BMI 19.3
--- NOTE | 2022-12-09 09:45 | PN.PCM_ITS ---
History of Present Illness Date of Service: 12/09/22 Chief Complaint: Left Great Toe Ulcer History of Wound: Ms. Vargas is a 57yo with a history of Breast Cancer referred to the wound center due to non healing ulcer. Being managed by her Oncologist and Roof Designer for drug induced toxic erythema and Palmar -Plantar erythrodysesthesia. Most of the other areas on her foot are responding to zinc oxide however her left great toe with minimal improvement. They have been applying zinc oxide to the area and she has to soak her feet in cold water several times a day due to burning/discomfort. Chemotherapy is currently on hold to aid in healing. She takes Jaime BID. No history of DM or Tobacco abuse. Progress of Wound: No new concerns. Healed. Objective Data Objective Data Vital Signs: Vital Signs Temp Pulse Resp BP 95.2 F L 73 18 128/66 H 12/09/22 08:51 12/09/22 08:51 12/09/22 08:51 12/09/22 08:51 Weight: 127 lb Body Mass Index (BMI) 19.3 Charges/Coding Visit Charges Office Visits / Consults: 60154 OV L3 Est Physical Exam Const alert, oriented x3 and no apparent distress General Appearance: cooperative, comfortable and well kempt HEENT normocephalic and head/scalp atraumatic Head and Scalp: normal to inspection Eyes EOMs intact bilaterally Neck full ROM General: normal visual inspection Resp normal respiratory effort Effort and Inspection: able to speak in complete sentences Extremity General Extremity: edema Skin General Skin Exam: erythema Neuro oriented x3, CN's II-XII intact bilaterally, moves all extremities and no focal motor deficits Psych mental status grossly normal, thought process normal, cooperative and affect normal Debridement Note Debridement Note Post-Debridement Measurements and Additional Note: Post-Debridement Measurements/Treatment - Nurse 1 - General Ulcer Assessment Start: 12/09/22 08:51 Freq: Status: Active Protocol: BRANDY Activity Type Activity Date Activity User E-sign Co-sign Detail Recorded Client Recorded Date Recorded By Document 12/09/22 08:51 LIS [id number] 12/09/22 08:56 LIS 12/09/22 08:51 - Today's Visit Information Type of service Follow-up Visit (Physician/EXERCISE INSTRUCTOR ) Arrival Mode Ambulatory Patient Identification Verified (Name & Yes ) Patient Requires Transmission-Based No Precautions Height and Weight Body Mass Index (BMI) 19.3 BMI Classification Normal Vital Signs Temperature (97.8 F-99.1 F) 95.2 F L Temperature Source Temporal Pulse Rate (60-100) 73 Pulse Location Monitor Respiratory Rate (12-18) 18 Respiratory rate source Observation Blood Pressure (90/60-120/80) 128/66 H Blood Pressure Mean (mm Hg) 86 Source Monitor Position Sitting Blood Pressure Location Right Arm Pain Scale: 0-10 Numeric Is Patient Pain Free? Yes WC - Nurse 1 - General Ulcer Measurement Start: 12/09/22 08:51 Freq: Status: Active Protocol: Activity Type Activity Date Activity User E-sign Co-sign Detail Recorded Client Recorded Date Recorded By Document 12/09/22 08:51 LIS [id number] 12/09/22 08:56 12/09/22 08:51 Wound Center Nurse 1 #1 L grt toe -Combined with other wound No -Current Size (cm) - Length 0.1 -Current Size (cm) - Width 0.1 -Current Size (cm) - Depth 0.1 -Total Square Cm 0.01 -Photo Taken Yes Lower Limb Edema Present NA WC - Nurse 2 - General Ulcer CM Notes Start: 12/09/22 08:51 Freq: Status: Active Protocol: Activity Type Activity Date Activity User E-sign Co-sign Detail Recorded Client Recorded Date Recorded By Document 12/09/22 08:59 LIS [id number] 12/09/22 09:01 12/09/22 08:59 Wound Center Nurse 2 #1 L grt toe -Correct Patient No -Correct Side, Site, Position No -Correct Procedure No -Procedure Performed No -Post Debridement (cm) - Length 0 -Post Debridement (cm) - Width 0 -Post Debridement (cm) - Depth 0 -Total Square (Post) (cm) 0 -Area of Debridement (cm) - Length 0 -Area of Debridement (cm) - Width 0 -Total Square (Area) (cm) 0 -Wound/Ulcer Outcome Healed- Epithelialized Pain Scale: 0-10 Numeric Is Patient Pain Free? Yes WC - Nurse 3 - General Ulcer D/C NN Start: 12/09/22 08:51 Freq: Status: Active Protocol: Activity Type Activity Date Activity User E-sign Co-sign Detail Recorded Client Recorded Date Recorded By Document 12/09/22 09:06 LIS [id number] 12/09/22 09:07 JF 12/09/22 09:06 Is Patient Pain Free? 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: CODE(S): L27.1 - Localized skin eruption due to drugs and medicaments taken internally (2) Drug-induced toxic erythema: CODE(S): L53.0 - Toxic erythema; T50.905A - Adverse effect of unspecified drugs, medicaments and biological substances, initial encounter (3) Skin ulcer of left great toe with fat layer exposed: CODE(S): L97.522 - Non-pressure chronic ulcer of other part of left foot with fat layer exposed (4) Breast cancer, left: CODE(S): C50.912 - Malignant neoplasm of unspecified site of left female breast QUALIFIERS: Breast location: overlapping sites of breast Estrogen receptor status: negative Patient sex: female Qualified Code(s): C50.812 - Malignant neoplasm of overlapping sites of left female breast; Z17.1 - Estrogen receptor negative status [ER-] PLAN: Plan Healed. No debridement completed today. No new concerns reported by the patient. Still some areas of dryness, moisturize adequately. Her questions were answered and she was advised to let us know if she has any further questions or concerns. Discharge from the wound center. This note was generated with [employer] software. It may contain incorrect words, spelling, and punctuation that were not noted in checking the note before signing.
== END 2022-12-09 16:55 | disposition home or self-care (01) ==
LOC: WC 08:40
PROVIDERS: PCP Physician Assistant; Referring Provider Nurse Practitioner Family; Visit Provider Internal Medicine
DX: L27.1 Localized skin eruption due to drugs and medicaments taken internally (principal); L97.522 Non-pressure chronic ulcer of other part of left foot with fat layer exposed; C50.812 Malignant neoplasm of overlapping sites of left female breast; L53.0 Toxic erythema; Z17.1 Estrogen receptor negative status [ER-]
CPT/HCPCS: 99213; G0463

== ENCOUNTER → 2022-12-22 | Outpatient (CLI) | payer SELFPAY ==
--- NOTE | 2022-12-22 09:44 | ECHODONC_ITS ---
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 Myocardial strain analysis was performed in this exam to aid in the assessment of cardiac function. Exam performed in department. Left Ventricle Normal LV size. Left ventricular systolic function is normal. The left ventricular ejection fraction is 55 %. Normal diastology for age. No regional wall motion abnormalities noted. Right Ventricle Normal RV size. Normal systolic function. Atria Normal left atrium. Normal right atrium. Mitral Valve Bileaflet diffuse mitral valve thickening. Mild (1+) eccentric mitral valve insufficiency. Tricuspid Valve Normal tricuspid valve. Mild (1+) tricuspid valve insufficiency. Pulmonary artery systolic pressure is 23 mmHg. Aortic Valve Normal aortic valve. Trisinus/trileaflet aortic valve. Pulmonic Valve Normal pulmonic valve. Great Vessels Normal aortic root. The pulmonary artery is normal size. Normal inferior vena cava. Pericardium/Pleural No pericardial effusion. MMode/2D Measurements & Calculations LVIDd: 4.7 cm IVSd: 0.82 cm Ao root diam: 3.0 cm LVIDs: 3.3 cm LVPWd: 0.83 cm RVDd: 3.7 cm FS: 30.0 % LAV(MOD-bp): 30.4 ml LVAd ap4: 27.7 cm2 LVAd ap2: 22.1 cm2 LAV(MOD-bp) Indexed: 17.7 ml/m2 LVLd ap4: 7.2 cm LVLd ap2: 6.8 cm LAV(MOD-sp2): 33.6 ml EDV(MOD-sp4): 86.6 ml EDV(MOD-sp2): 60.0 ml LAV(MOD-sp4): 22.9 ml EDV(sp4-el): 90.6 ml EDV(sp2-el): 61.2 ml LVAs ap4: 17.1 cm2 LVAs ap2: 13.3 cm2 LVLs ap4: 6.2 cm LVLs ap2: 5.6 cm ESV(MOD-sp4): 38.4 ml ESV(MOD-sp2): 25.4 ml ESV(sp4-el): 40.1 ml ESV(sp2-el): 26.6 ml EF(MOD-sp4): 55.7 % EF(MOD-sp2): 57.6 % EF(sp4-el): 55.7 % SV(MOD-sp4): 48.2 ml SV(MOD-sp2): 34.6 ml SV(sp4-el): 50.5 ml LA dimension(2D): 3.2 cm LA A4 area: 10.5 cm2 RA A4 area: 8.9 cm2 TAPSE: 1.9 cm Time Measurements MV dec time: 0.21 sec Doppler Measurements & Calculations MV E max johnnie: 74.9 cm/sec Lat Peak E' Johnnie: 11.4 cm/sec Med Peak E' Johnnie: 8.1 cm/sec MV A max johnnie: 57.1 cm/sec E/E' lat: 6.6 E/E' med: 9.3 MV E/A: 1.3 MV dec slope: 359.2 cm/sec2 Ao V2 max: 111.4 cm/sec LV V1 max: 94.7 cm/sec Ao max P.0 mmHg LV V1 max P.6 mmHg Ao V2 mean: 83.6 cm/sec Ao mean P.0 mmHg Ao V2 VTI: 21.9 cm MR max johnnie: 609.7 cm/sec PA V2 max: 84.7 cm/sec TR max johnnie: 220.1 cm/sec MR max P.7 mmHg TR max P.4 mmHg MR mean johnnie: 506.6 cm/sec MR mean P.3 mmHg MR VTI: 227.5 cm ECHO/ONC Echo Complete Interpretation Summary Normal LV size. Left ventricular systolic function is normal. The left ventricular ejection fraction is 55 %. Mild (1+) eccentric mitral valve insufficiency. To the previous the left ventricular ejection fraction remains the same and the global longitudinal strain pattern has improved. The global longitudinal strain = -16.9% (abnormal) . The global longitudinal strain is borderline abnormal. Ordering Physician: Roseann Bravo Referring Physician: Justyna Lopez Performed By: Hillary Bryan, RACHAEL, RVT
== END | disposition home or self-care (01) ==
LOC: CVS 09:42
PROVIDERS: PCP Physician Assistant; Referring Provider Nurse Practitioner Family; Visit Provider Nurse Practitioner Family
DX: Z51.81 Encounter for therapeutic drug level monitoring (principal); C50.912 Malignant neoplasm of unspecified site of left female breast; Z79.899 Other long term (current) drug therapy
CPT/HCPCS: 93306; 93356

== ENCOUNTER → 2023-01-04 | Outpatient (CLI) | payer SELFPAY ==
[2023-01-04 12:50] LABS: Vitamin B12 561 pg/mL (211-911)
[2023-01-04 13:45] LABS: Thyroid Stim Hormone (TSH) 3.27 uIU/mL (0.358-3.74)
[2023-01-06 19:07] LABS: Free Kappa Light Chains 22.6 mg/L (3.3-19.4); Free Lambda Light Chains 18.2 mg/L (5.7-26.3); Vitamin B1, Thiamine 144.3 nmol/L (66.5-200.0)
== END | disposition home or self-care (01) ==
LOC: MTLAB 10:59
PROVIDERS: PCP Physician Assistant; Referring Provider Psychiatry & Neurology Neurology; Visit Provider Psychiatry & Neurology Neurology
DX: G62.9 Polyneuropathy, unspecified (principal)
CPT/HCPCS: 36415; 82607; 82746; 83036; 83883; 84425; 84443

== ENCOUNTER → 2023-01-10 | Outpatient (CLI) | payer SELFPAY ==
[2023-01-13 14:09] LABS: Albumin 3.9 g/dL (2.9-4.4); Alpha-1-Globulins 0.2 g/dL (0.0-0.4); Alpha-2-Globulins 0.6 g/dL (0.4-1.0); Gamma Globulin 1.1 g/dL (0.4-1.8); Immunoglobulin A 269 mg/dL (87-352); Immunoglobulin G 1038 mg/dL (586-1602); Immunoglobulin M 112 mg/dL (26-217); PROEL- TOTAL PROTEIN 6.9 g/dL (6.0-8.5)
== END | disposition home or self-care (01) ==
LOC: LAB 13:00
PROVIDERS: PCP Physician Assistant; Visit Provider Psychiatry & Neurology Neurology
DX: G62.9 Polyneuropathy, unspecified (principal)
CPT/HCPCS: 36415; 82784; 84165; 86334; 86335

== ENCOUNTER → 2023-01-19 | Outpatient (CLI) | payer SELFPAY ==
--- NOTE | 2023-01-19 07:54 | ECHODONC_ITS ---
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 Myocardial strain analysis was performed in this exam to aid in the assessment of cardiac function. Exam performed in department. Left Ventricle Normal LV size. Left ventricular systolic function is normal. The estimated ejection fraction is 55 %. No regional wall motion abnormalities noted. Right Ventricle Normal RV size. Normal systolic function. Atria Normal left atrium. Normal right atrium. Mitral Valve Mild diffuse mitral valve thickening. Mild (1+) mitral valve insufficiency. Tricuspid Valve Normal tricuspid valve. Aortic Valve Trisinus/trileaflet aortic valve. Pulmonic Valve Normal pulmonic valve. Great Vessels Normal aortic root. Pericardium/Pleural No pericardial effusion. MMode/2D Measurements & Calculations LVIDd: 4.1 cm IVSd: 0.89 cm Ao root diam: 2.9 cm LVIDs: 2.7 cm LVPWd: 0.91 cm RVDd: 3.0 cm FS: 33.0 % LAV(MOD-bp): 24.1 ml LVAd ap4: 22.7 cm2 SV(MOD-sp4): 36.9 ml LAV(MOD-bp) Indexed: 13.9 ml/m2 LVLd ap4: 6.7 cm LAV(MOD-sp2): 27.8 ml EDV(MOD-sp4): 62.2 ml LAV(MOD-sp4): 21.2 ml EDV(sp4-el): 65.0 ml LVAs ap4: 13.6 cm2 LVLs ap4: 5.9 cm ESV(MOD-sp4): 25.3 ml ESV(sp4-el): 26.4 ml EF(MOD-sp4): 59.3 % EF(sp4-el): 59.4 % SV(sp4-el): 38.6 ml LA A4 area: 10.2 cm2 LA dimension(2D): 3.3 cm RA A4 area: 8.8 cm2 TAPSE: 1.8 cm Time Measurements MV dec time: 0.33 sec Doppler Measurements & Calculations MV E max johnnie: 42.9 cm/sec Lat Peak E' Johnnie: 11.6 cm/sec Med Peak E' Johnnie: 5.5 cm/sec MV A max johnnie: 52.7 cm/sec E/E' lat: 3.7 E/E' med: 7.7 MV E/A: 0.81 Ao V2 max: 97.6 cm/sec LV V1 max: 83.0 cm/sec MV dec slope: 131.1 cm/sec2 Ao max P.8 mmHg LV V1 max P.8 mmHg Ao V2 mean: 76.2 cm/sec Ao mean P.4 mmHg Ao V2 VTI: 18.6 cm PA V2 max: 85.2 cm/sec ECHO/ONC Echo Complete Interpretation Summary Normal LV size. Left ventricular systolic function is normal. The estimated ejection fraction is 55 %. Mild (1+) mitral valve insufficiency. The global longitudinal strain is normal. The global longitudinal strain = -18. 2 % (normal). Ordering Physician: Roseann Bravo Referring Physician: Justyna Lopez Performed By: Hillary Bryan, RACHAEL, RVT
== END | disposition home or self-care (01) ==
LOC: CVS 07:54
PROVIDERS: PCP Physician Assistant; Referring Provider Nurse Practitioner Family; Visit Provider Nurse Practitioner Family
DX: C50.919 Malignant neoplasm of unspecified site of unspecified female breast (principal); Z79.899 Other long term (current) drug therapy; Z51.81 Encounter for therapeutic drug level monitoring
CPT/HCPCS: 93306; 93356

== ENCOUNTER → 2023-02-16 | Outpatient (CLI) | payer SELFPAY ==
--- NOTE | 2023-02-16 12:32 | NEURO ---
NCS and/or EMG Patient Report Ordering Doctor: Antonio Carvajal DATE OF SERVICE: 02/16/23 Meche presents for electrodiagnostic testing of the lower limbs. She reports numbness and tingling in the feet for the past several months. Electrodiagnostic findings: Peroneal motor nerve demonstrates normal distal latency, amplitude and conduction velocity bilaterally. Normal tibial motor response bilaterally. Normal peroneal and tibial F?waves. Prolonged H reflex bilaterally. Prolonged sural latency noted bilaterally. Prolonged superficial peroneal latency bilaterally. Plantar responses are within normal limits. Needle EMG testing was performed of the lower limbs. All muscles tested showed no evidence of denervation with normal motor unit action potentials. Electrodiagnostic impression: This is an abnormal study in the lower limbs. 1. 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 2. No electrodiagnostic evidence is noted for lumbosacral radiculopathy. Multi Select Codes Neurology Neurology Interp Codes: 46310-29 Musc test done w/n test comp (interp) (2) and 39914-51 Nrv cndj test 11-12 studies (interp)
== END | disposition home or self-care (01) ==
LOC: PSN 08:58
PROVIDERS: PCP Physician Assistant; Referring Provider Psychiatry & Neurology Neurology; Visit Provider Psychiatry & Neurology Neurology
DX: G62.9 Polyneuropathy, unspecified (principal)
CPT/HCPCS: 95886; 95912

== ENCOUNTER → 2023-02-21 | Outpatient (CLI) | payer SELFPAY ==
--- NOTE | 2023-02-21 10:46 | ECHODONC_ITS ---
Reason For Study: Drug Level Monitoring Procedure This was a 2D Doppler, Color Flow transthoracic echocardiogram. Myocardial strain analysis was performed in this exam to aid in the assessment of cardiac function. Exam performed in department. Left Ventricle Normal LV size. Left ventricular systolic function is normal. The estimated ejection fraction is 55 %. No regional wall motion abnormalities noted. Right Ventricle Normal RV size. Normal systolic function. Atria Normal left atrium. Normal right atrium. Mitral Valve Normal mitral valve. Mild (1+) mitral valve insufficiency. Tricuspid Valve Normal tricuspid valve. Aortic Valve Trisinus/trileaflet aortic valve. Pulmonic Valve Normal pulmonic valve. Great Vessels Normal aortic root. The pulmonary artery is normal size. Normal inferior vena cava. Pericardium/Pleural No pericardial effusion. MMode/2D Measurements & Calculations LVIDd: 4.4 cm IVSd: 0.94 cm Ao root diam: 2.8 cm LVIDs: 3.1 cm LVPWd: 0.97 cm RVDd: 3.8 cm FS: 30.2 % LAV(MOD-bp): 32.2 ml LVAd ap4: 25.6 cm2 SV(MOD-sp4): 42.9 ml LAV(MOD-bp) Indexed: 18.3 ml/m2 LVLd ap4: 6.7 cm LAV(MOD-sp2): 36.6 ml EDV(MOD-sp4): 78.6 ml LAV(MOD-sp4): 24.2 ml EDV(sp4-el): 82.6 ml LVAs ap4: 16.0 cm2 LVLs ap4: 6.0 cm ESV(MOD-sp4): 35.7 ml ESV(sp4-el): 36.5 ml EF(MOD-sp4): 54.6 % EF(sp4-el): 55.9 % SV(sp4-el): 46.2 ml LA A4 area: 10.7 cm2 LA dimension(2D): 3.8 cm RA A4 area: 8.6 cm2 TAPSE: 2.0 cm Time Measurements MV dec time: 0.23 sec Doppler Measurements & Calculations MV E max johnnie: 46.3 cm/sec Lat Peak E' Johnnie: 7.5 cm/sec Med Peak E' Johnnie: 5.9 cm/sec MV A max johnnie: 58.5 cm/sec E/E' lat: 6.1 E/E' med: 7.9 MV E/A: 0.79 Ao V2 max: 104.5 cm/sec LV V1 max: 96.8 cm/sec MV dec slope: 205.1 cm/sec2 Ao max P.4 mmHg LV V1 max P.7 mmHg Ao V2 mean: 84.7 cm/sec LV V1 mean P.0 mmHg Ao mean P.0 mmHg LV V1 mean: 65.5 cm/sec Ao V2 VTI: 20.3 cm LV V1 VTI: 20.2 cm AV (velocity ratio): 0.99 PA V2 max: 83.8 cm/sec TR max johnnie: 196.3 cm/sec TR max P.4 mmHg ECHO/ONC Echo Complete Interpretation Summary Normal LV size. Left ventricular systolic function is normal. The estimated ejection fraction is 55 %. Mild (1+) mitral valve insufficiency. The global longitudinal strain = -16.8% (abnormal). The prior global longitudin al strain was -18 % . Ordering Physician: Roseann Bravo Referring Physician: Justyna Lopez Performed By: Hillary Bryan, RACHAEL, RVT
== END | disposition home or self-care (01) ==
LOC: CVS 10:45
PROVIDERS: PCP Physician Assistant; Referring Provider Internal Medicine Hematology & Oncology; Visit Provider Internal Medicine Hematology & Oncology
DX: Z51.81 Encounter for therapeutic drug level monitoring (principal); C50.919 Malignant neoplasm of unspecified site of unspecified female breast; Z79.899 Other long term (current) drug therapy
CPT/HCPCS: 93306; 93356

== ENCOUNTER → 2023-03-23 | Outpatient (CLI) | payer SELFPAY ==
--- NOTE | 2023-03-23 12:53 | ECHODONC_ITS ---
Reason For Study: Drug Level Monitoring Procedure This was a 2D Doppler, Color Flow transthoracic echocardiogram. Myocardial strain analysis was performed in this exam to aid in the assessment of cardiac function. Exam performed in department. Left Ventricle Normal LV size. Left ventricular systolic function is normal. The estimated ejection fraction is 60 %. Normal diastology for age. No regional wall motion abnormalities noted. Right Ventricle Normal RV size. Normal systolic function. Atria Normal left atrium. Normal right atrium. Mitral Valve Normal mitral valve. Mild (1+) mitral valve insufficiency. Tricuspid Valve Normal tricuspid valve. Trivial tricuspid valve insufficiency. Pulmonary artery systolic pressure is 23 mmHg. Aortic Valve Normal aortic valve. Trisinus/trileaflet aortic valve. Pulmonic Valve Normal pulmonic valve. Great Vessels Normal aortic root. The pulmonary artery is normal size. Normal inferior vena cava. Pericardium/Pleural No pericardial effusion. MMode/2D Measurements & Calculations LVIDd: 5.1 cm IVSd: 0.90 cm Ao root diam: 3.2 cm LVIDs: 3.4 cm LVPWd: 0.80 cm RVDd: 3.4 cm FS: 33.8 % LAV(MOD-bp): 31.2 ml LVAd ap4: 26.5 cm2 SV(MOD-sp4): 47.2 ml LAV(MOD-bp) Indexed: 17.8 ml/m2 LVLd ap4: 6.9 cm LAV(MOD-sp2): 30.7 ml EDV(MOD-sp4): 82.3 ml LAV(MOD-sp4): 29.7 ml EDV(sp4-el): 86.5 ml LVAs ap4: 16.0 cm2 LVLs ap4: 6.1 cm ESV(MOD-sp4): 35.1 ml ESV(sp4-el): 36.0 ml EF(MOD-sp4): 57.3 % EF(sp4-el): 58.4 % SV(sp4-el): 50.6 ml LA A4 area: 12.3 cm2 LA dimension(2D): 4.0 cm RA A4 area: 10.6 cm2 TAPSE: 1.9 cm Time Measurements MV dec time: 0.19 sec Doppler Measurements & Calculations MV E max johnnie: 71.1 cm/sec Lat Peak E' Johnnie: 7.3 cm/sec Med Peak E' Johnnie: 7.0 cm/sec MV A max johnnie: 56.7 cm/sec E/E' lat: 9.7 E/E' med: 10.2 MV E/A: 1.3 Ao V2 max: 112.2 cm/sec LV V1 max: 96.3 cm/sec MV dec slope: 368.5 cm/sec2 Ao max P.0 mmHg LV V1 max P.7 mmHg Ao V2 mean: 86.4 cm/sec Ao mean P.2 mmHg Ao V2 VTI: 23.0 cm PA V2 max: 97.4 cm/sec PI end-d johnnie: 96.0 cm/sec TR max johnnie: 229.4 cm/sec TR max P.1 mmHg ECHO/ONC Echo Complete Interpretation Summary Normal LV size. Left ventricular systolic function is normal. The estimated ejection fraction is 60 %. The global longitudinal strain = -18 % (normal). Compared to the previous the ejection fraction is noted to be improved and so i s the global longitudinal strain. The global longitudinal strain is normal. The global longi tudinal strain = -18 % (normal). Ordering Physician: Roseann Bravo Referring Physician: Justyna Lopez Performed By: Hillary Bryan, RDCS, RVT
[2023-03-25 10:17] LABS: AST(SGOT) 25 U/L (15-37); Alanine Aminotransfer ALT/SGPT 33 U/L (13-56); Alkaline Phosphatase 88 U/L (45-117); Cholesterol 227 mg/dL (200); Globulin 3.6 g/dL (2.2-4.2); High Density Lipoprotein 66 mg/dL; Protein, Total 7.6 g/dL (6.4-8.2); Triglycerides 182 mg/dL; Very Low Density Lipoprotein 36 mg/dL (5-40)
[2023-03-25 17:48] LABS: Xtra Tube EP Lab EXTRA TUBE
== END | disposition home or self-care (01) ==
PROVIDERS: Internal Medicine Cardiovascular Disease; PCP Physician Assistant; Referring Provider Nurse Practitioner Family; Visit Provider Nurse Practitioner Family
DX: Z51.81 Encounter for therapeutic drug level monitoring (principal); C50.919 Malignant neoplasm of unspecified site of unspecified female breast; Z79.899 Other long term (current) drug therapy; E78.5 Hyperlipidemia, unspecified
CPT/HCPCS: 80061; 80076; 93306; 93356

== ENCOUNTER 2023-03-25 09:37 | Outpatient (CLI) | payer SELFPAY | END 2023-03-25 09:38 | disposition home or self-care (01) | LOC: MEDOUTP 09:39 | PROVIDERS: PCP Physician Assistant; Referring Provider Nurse Practitioner Family; Visit Provider Nurse Practitioner Family | DX: Z45.2 Encounter for adjustment and management of vascular access device (principal) | CPT/HCPCS: 36591; A4216 ==

== ENCOUNTER → 2023-07-19 | Outpatient (CLI) | payer SELFPAY ==
--- NOTE | 2023-07-19 18:51 | CT_ITS ---
STUDY: CT CHEST WITHOUT CONTRAST REASON FOR EXAM: Female, 57 years old. Persistent cough; h/o breast ca RADIATION DOSAGE (If Supplied By Facility): CTDIvol = ( 7.84 ) mGy, DLP = ( 295.74 ) mGycm TECHNIQUE: Transaxial imaging was performed without the administration of intravenous contrast material. Multiplanar coronal and sagittal images were reformatted. Individualized dose optimization techniques were used for this CT. COMPARISON: Comparison is made with prior chest radiograph dated October 15, 2022. FINDINGS: CHEST Surgical clips are seen in the left axilla. Status post bilateral breast implants. Mild degree of linear scarring in the anterior medial aspect of the right lower lobe as well as the left lower lobe. There is no demonstrated pleural abnormality. There are calcifications of the coronary arteries. Normal mediastinum. Normal hilar regions. Normal unenhanced pulmonary arteries. There is atherosclerotic calcification of the aortic arch. There are mild degenerative changes of the thoracic spine. There is no demonstrated abnormality of the visualized upper abdomen. CT/Chest without Contrast IMPRESSION: Mild linear scarring in the anterior aspect of both lower lobes. Status post left axillary surgery. Bilateral breast implants. Electronically Signed: Tashi Ferguson MD at 14:53 EDT ,
== END | disposition home or self-care (01) ==
LOC: CT 18:49
PROVIDERS: PCP Physician Assistant; Visit Provider Nurse Practitioner Family
DX: R05.9 Cough, unspecified (principal); C50.919 Malignant neoplasm of unspecified site of unspecified female breast
CPT/HCPCS: 71250

== ENCOUNTER 2023-09-13 06:58 | Day surgery (SDC) | payer SELFPAY ==
[2023-09-13 07:15] VITALS: BP 131/91; PULSE 77; RESP 16; TEMP 36.2; O2SAT 100; BMI 21.8
[2023-09-13] MEDS: Lactated Ringers 1,000 ML 15 ML IV (07:22)
--- NOTE | 2023-09-13 07:45 | HP.PCM_ITS ---
[facility] - General General Date of Service: 09/13/23 Chief Complaint: Surveillance for colon cancer with a sister who had colon cancer. [facility] Narrative BATSHEVA CORNELL, is a 58 F who presents via open access today. She had a previous colonoscopy 5 years ago. Sister in her mid 40s had colon cancer. The patient has had a personal history of left breast cancer. She otherwise feels well. She does note that she becomes nauseated with any type of anesthetic. [facility] Medical History (Updated 09/07/23 @ 10:56 by Sondra Luther) Back pain History of pain when walking History of edema Cardiology follow-up encounter Cough Chronic foot pain Central venous catheter in place Colon cancer screening Decreased tissue perfusion Raynauds disease Peripheral neuropathy HER2-positive carcinoma of breast Blurry vision Encounter for monitoring cardiotoxic drug therapy Wears glasses Cancer High cholesterol History of echocardiogram Elevated BUN Skin ulcer of left great toe with fat layer exposed Palmar plantar erythrodysaesthesia due to cytotoxic therapy Hypokalemia Tachycardia Encounter for chemotherapy management Drug-induced toxic erythema Stomatitis Oral candidiasis Diarrhea Encounter for education Post-menopausal History of IBS PONV (postoperative nausea and vomiting) Non-smoker History of stress test Breast cancer, left Herniated disc Dyslipidemia Abnormal ultrasound of breast Abnormal mammogram of left breast Home Medications ?Medication ?Instructions ?Recorded ?Last Taken ?Type calcium carbonate 600 mg PO DAILY 01/07/17 Unknown History cholecalciferol (vitamin D3) 50 50 mcg PO DAILY 06/30/22 Unknown History mcg (2,000 unit) capsule alpha lipoic acid 300 mg capsule 300 mg PO TID 01/27/23 Unknown History rosuvastatin 5 mg tablet (Crestor) 10 mg PO DAILY 04/06/23 Unknown History leucovorin 4 mg-pyridoxal 1 tab-cap PO DAILY #30 tabs 05/10/23 Unknown Rx phosphate 50 mg-mecobalamin 2 mg tablet (Folinic-Plus) duloxetine 60 mg capsule,delayed 60 mg PO DAILY 07/05/23 Unknown History release (Cymbalta) pregabalin 25 mg capsule 50 mg PO TID 09/07/23 Unknown History Allergy/AdvReac Type Severity Reaction Status Date / Time chlorhexidine (From Allergy Mild Rash Verified 09/13/23 07:14 ChloraPrep Clear) isopropyl alcohol (From Allergy Mild Rash Verified 09/13/23 07:14 ChloraPrep Clear) atropine (From ) Allergy Swelling Verified 09/13/23 07:14 hyoscyamine (From ) Allergy Swelling Verified 09/13/23 07:14 phenobarbital (From ) Allergy Swelling Verified 09/13/23 07:14 scopolamine (From ) Allergy Swelling Verified 09/13/23 07:14 Sulfa (Sulfonamide Allergy Hives Verified 09/13/23 07:14 Antibiotics) docetaxel AdvReac Severe Rash Verified 09/13/23 07:14 paclitaxel AdvReac Severe Rash Verified 09/13/23 07:14 clarithromycin (From Biaxin) AdvReac Nausea Verified 09/13/23 07:14 prochlorperazine (From AdvReac Other Verified 09/13/23 07:14 Compazine) Family History Sister Colon cancer, Onset Age: 42 Mother Heart disease Kidney disease Lupus High cholesterol Father High cholesterol Hypertension Thyroid disorder Heart disease Brother Heart disease Aunt Diabetes maternal Surgical History (Updated 09/07/23 @ 10:56 by Sondra Luther) History of bilateral mastectomy (~11/2022) History of colonoscopy History of D&C S/P left breast biopsy Hx of tubal ligation Social History household members: spouse 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 Smoking Status: Never smoker alcohol intake: never substance use type: does not use caffeine: No seatbelt use: always do you feel safe at home: Yes additional social history: - 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- [employer] Constitutional Constitutional: Reports systems reviewed and no addt'l complaints, except as documented Cardiovascular Cardiovascular: Denies chest pain Respiratory/Chest Respiratory/Chest: Denies shortness of breath at rest Gastrointestinal Gastrointestinal: Denies abdominal pain, change in bowel habits, hematochezia or melena Vital Signs Vital Signs Vital Signs: 09/13/23 07:15 09/13/23 07:15 Temperature 97.2 F L Temperature Source Temporal Pulse Rate 77 Respiratory Rate 16 Respiratory Pattern Normal Blood Pressure 131/91 H Blood Pressure Mean 104 Blood Pressure Source Monitor Blood Pressure Position Sitting Blood Pressure Location Right Arm Pulse Ox 100 Oxygen Delivery Method Room Air Weight Weight: 148 lb Body Mass Index (BMI) 21.8 Physical Exam Const alert, oriented x3 and no apparent distress General Appearance: cooperative and comfortable Eyes General Eye: normal appearance of both eyes Neck General: normal visual inspection Chest inspection of chest normal Resp Effort and Inspection: able to speak in complete sentences and symmetric chest movement Auscultation: clear to auscultation bilaterally Cardio regular rate and regular rhythm GI soft to palpation, non-tender and non-distended Extremity no calf tenderness Neuro oriented x3 Psych thought process normal Assessment & Plan Assessment/Plan (1) Family history of colon cancer: PLAN: Plan to proceed with a colonoscopy with possible biopsy or polypectomy as indicated. She is aware of the technique, benefit, risk, alternatives. She has had an opportunity to ask and have questions answered. We will proceed as noted. She presents via open access today Florencio Guy M.D., F.A.C.S.
[2023-09-13 08:50] VITALS: BP 109/77; BP 131/91; PULSE 69; RESP 16; TEMP 36.4; O2SAT 100
--- NOTE | 2023-09-13 08:50 | OP.COLON_ITS ---
Patient Name: Meche Vargas Procedure Date: 09/13/2023 8:21 AM Date of : 1965 Age: 58 Procedure: Colonoscopy Indications: Family history of colon cancer in a first-degree relative before age 60 years Providers: Florencio Guy MD Referring MD: Justyna Lopez Medicines: See the Anesthesia note for documentation of the administered medications Patient Profile: Last Colonoscopy: 5 years ago. Complications: No immediate complications. Procedure: Pre-Anesthesia Assessment: - Prior to the procedure, a History and Physical was performed, and patient medications and allergies were reviewed. The patient's tolerance of previous anesthesia was also reviewed. The risks and benefits of the procedure and the sedation options and risks were discussed with the patient. All questions were answered, and informed consent was obtained. Prior Anticoagulants: The patient has taken no anticoagulant or antiplatelet agents. ASA Grade Assessment: II - A patient with mild systemic disease. After reviewing the risks and benefits, the patient was deemed in satisfactory condition to undergo the procedure. After I obtained informed consent, the scope was passed under direct vision. Throughout the procedure, the patient's blood pressure, pulse, and oxygen saturations were monitored continuously. The adult colonoscope was introduced through the anus and advanced to the cecum, identified by appendiceal orifice and ileocecal valve. The colonoscopy was performed without difficulty. The patient tolerated the procedure well. The quality of the bowel preparation was good. The ileocecal valve and the appendiceal orifice were photographed. Scope In: 8:31:37 AM Scope Withdrawal Time 0 hours 6 minutes 49 seconds Scope Out: 8:46:02 AM Total Procedure Duration Time 0 hours 14 minutes 25 seconds Findings: The digital rectal exam findings include non-thrombosed external hemorrhoids, non-thrombosed internal hemorrhoids and internal hemorrhoids that prolapse with straining, but spontaneously regress to the resting position (Grade II). A few diverticula were found in the sigmoid colon. The exam was otherwise without abnormality. Impression: - Non-thrombosed external hemorrhoids, non-thrombosed internal hemorrhoids and internal hemorrhoids that prolapse with straining, but spontaneously regress to the resting position (Grade II) found on digital rectal exam. - Diverticulosis in the sigmoid colon. - The examination was otherwise normal. - No specimens collected. Recommendation: - Discharge patient to home. - Resume previous diet. - Continue present medications. - Repeat colonoscopy in 5 years for surveillance. Procedure Code(s): --- Professional --- 64794, Colonoscopy, flexible; diagnostic, including collection of specimen(s) by brushing or washing, when performed (separate procedure) Diagnosis Code(s): --- Professional --- K64.1, Second degree hemorrhoids K64.4, Residual hemorrhoidal skin tags Z80.0, Family history of malignant neoplasm of digestive organs K57.30, Diverticulosis of large intestine without perforation or abscess without bleeding CPT copyright 2021 [employer]. All rights reserved. The codes documented in this report are preliminary and upon inpatient coder review may be revised to meet current compliance requirements. Florencio Guy MD 09/13/2023 8:50:08 AM This report has been signed electronically. Number of Addenda: 0 Note Initiated On: 09/13/2023 8:21 AM
--- NOTE | 2023-09-13 08:50 | OP.CCLET_ITS ---
09/13/2023 Justyna Lopez Re : Colonoscopy procedure for Meche Vargas Dear John This procedure was performed on Wednesday, September 13, 2023. My impressions and recommendations are as follows: Impressions : - Non-thrombosed external hemorrhoids, non-thrombosed internal hemorrhoids and internal hemorrhoids that prolapse with straining, but spontaneously regress to the resting position (Grade II) found on digital rectal exam. - Diverticulosis in the sigmoid colon. - The examination was otherwise normal. - No specimens collected. Recommendations : - Discharge patient to home. - Resume previous diet. - Continue present medications. - Repeat colonoscopy in 5 years for surveillance. My findings are described in the full procedure note, which is enclosed. If I can be of further assistance, please feel free to contact me at Doctor phone number(s): Work: . Sincerely, Florencio Guy MD 09/13/2023 8:50:08 AM This report has been signed electronically.
[2023-09-13 08:55] VITALS: BP 126/84; BP 131/91; PULSE 76; RESP 16; O2SAT 100
[2023-09-13 09:00] VITALS: BP 129/82; BP 131/91; PULSE 69; RESP 18; TEMP 36.1; O2SAT 100
[2023-09-13 09:35] VITALS: BP 131/91
== END 2023-09-13 09:46 | disposition home or self-care (01) ==
LOC: EN 07:01 → AC 07:01
PROVIDERS: PCP Physician Assistant; Referring Provider Physician Assistant; Visit Provider Surgery
PROC: 0DJD8ZZ Inspection of Lower Intestinal Tract, Via Natural or Artificial Opening Endoscopic (ICD-10-PCS; CPT 45378; principal; 2023-09-13 07:55)
DX: Z12.11 Encounter for screening for malignant neoplasm of colon (principal); E78.00 Pure hypercholesterolemia, unspecified; K64.4 Residual hemorrhoidal skin tags; K57.30 Diverticulosis of large intestine without perforation or abscess without bleeding; Z85.3 Personal history of malignant neoplasm of breast; Z79.899 Other long term (current) drug therapy; Z80.0 Family history of malignant neoplasm of digestive organs; Z90.12 Acquired absence of left breast and nipple; Z98.51 Tubal ligation status; K64.8 Other hemorrhoids; K64.1 Second degree hemorrhoids
CPT/HCPCS: 45378; J7120; J2405

== ENCOUNTER → 2023-09-16 | Outpatient (CLI) | payer SELFPAY ==
--- NOTE | 2023-09-16 09:42 | STE_ITS ---
Reason For Study: CAD/ASHD Stress Results Protocol: [facility] Protocol Maximum Predicted HR: 160 bpm Target HR: 136 bpm % Maximum Predicted HR: 91 % DurationHeart Rate Stage (mm:ss) (bpm) BP BASELINE 55 148/88 STAGE 1 3:00 107 132/82 STAGE 2 3:00 122 160/82 STAGE 3 3:00 121 162/82 STAGE 4 3:00 137 52/76 STAGE 4 0:30 146 / RECOVERY 75 144/88 Stress Duration: 12:30 mm:ss Maximum Stress HR: 146 bpm Baseline Echocardiogram Findings Stress Echo Wall motion Data Resting WM Intermediate WM Stress WM ECHO/Stress Test Echo w/o Contrast Interpretation Summary Stress echo. 58-year-old lady with a history of family history of coronary disease. Rest EKG demonstrates sinus bradycardia with a rate of 56 bpm, intervals are no shabnam resting blood pressure is 148/88 mmHg. The patient exercised according to the regular [facility] p rotocol for total duration of 12 minutes and 31 seconds completing 31 seconds to stage V the Bruc e protocol. Maximal heart rate attained was 146 bpm which was 91% of max impacted heart rate the [facility] workload was 15.3 METS. At rest there were no ST or T wave changes noted suggest ischemia an d at peak exercise upsloping ST changes were noted. No be the criteria for ischemia. No clinical a ngina was noted. The test was terminated due to the target heart rate being achieved the peak blood pressure was 162/82 mmHg with a rate-pressure product 20,800. Stress echocardiogram. The resting echocardiogram demonstrated low normal ejection fraction of 53%. No wall motion abnormalities were noted. With exercise there was improvement in left ventricul ar systolic function with peaking of ejection fraction of 65%. No wall motion abnormalities were not ed. Conclusion: Exercise stress echo with no EKG or echocardiographic evidence of ischemia at a high workload. Excellent functional aerobic capacity. Ordering Physician: Christophe Wilson Referring Physician: Christophe Wilson Performed By: Jessy Diallo RDCS
== END | disposition home or self-care (01) ==
LOC: CVS 09:42
PROVIDERS: PCP Physician Assistant; Referring Provider Internal Medicine Cardiovascular Disease; Visit Provider Internal Medicine Cardiovascular Disease
DX: R93.1 Abnormal findings on diagnostic imaging of heart and coronary circulation (principal); I25.10 Atherosclerotic heart disease of native coronary artery without angina pectoris
CPT/HCPCS: 93017; 93350

== ENCOUNTER → 2024-01-11 | Outpatient (CLI) | payer SELFPAY ==
--- NOTE | 2024-01-11 14:00 | RAD_ITS ---
STUDY: X-RAY - RIGHT SHOULDER REASON FOR EXAM: Female, 58 years old. right shoulder pain; h/o breast ca TECHNIQUE: 4 view(s) of the shoulder. COMPARISON: None. FINDINGS: Normal glenohumeral articulation. Normal acromioclavicular joint. Normal acromion. Normal humeral head and visualized proximal humerus. The soft tissue structures are unremarkable. Normal visualized pulmonary apex. RAD/Shoulder min 2 Views IMPRESSION: Normal x-ray examination of the shoulder. Electronically Signed: Vincent Telles MD at 18:52 EDT ,
[2024-01-11 14:25] LABS: Ferritin 15 ng/mL (8-252); Iron 85 ug/dL (50-170); Iron Binding Capacity,Total 373 ug/dL (250-450); PERCENT IRON SATURATION 22.8 % (15.0-55.0)
[2024-01-17 16:10] LABS: Copper, Serum or Plasma 94 ug/dL (80-158)
== END | disposition home or self-care (01) ==
LOC: LAB 13:47
PROVIDERS: PCP Physician Assistant; Referring Provider Nurse Practitioner Family; Visit Provider Nurse Practitioner Family
DX: M25.511 Pain in right shoulder (principal); Z85.3 Personal history of malignant neoplasm of breast
CPT/HCPCS: 36415; 73030; 82525; 82728; 83540; 83550

== ENCOUNTER → 2024-02-03 | Outpatient (CLI) | payer SELFPAY ==
[2024-02-03 11:02] LABS: AST(SGOT) 20 U/L (15-37); Alanine Aminotransfer ALT/SGPT 25 U/L (13-56); Albumin, Serum 3.8 g/dL (3.2-5.0); Alkaline Phosphatase 96 U/L (45-117); Bilirubin, Direct 0.15 mg/dL (0.00-0.30); Cholesterol 185 mg/dL (200); Globulin 3.3 g/dL (2.2-4.2); High Density Lipoprotein 54 mg/dL; Protein, Total 7.1 g/dL (6.4-8.2); Triglycerides 197 mg/dL; Very Low Density Lipoprotein 39 mg/dL (5-40)
== END | disposition home or self-care (01) ==
LOC: LAB 09:33
PROVIDERS: PCP Physician Assistant; Referring Provider Nurse Practitioner Family; Visit Provider Internal Medicine Cardiovascular Disease
DX: E78.5 Hyperlipidemia, unspecified (principal)
CPT/HCPCS: 36415; 80061; 80076

== ENCOUNTER → 2024-03-14 | Outpatient (CLI) | payer SELFPAY ==
--- NOTE | 2024-03-14 08:16 | NM_ITS ---
CLINICAL: 58-year-old female with history of primary breast carcinoma. WHOLE BODY 99m Tc MDP RADIONUCLIDE BONE SCINTIGRAPHY COMPARISON: None available FINDINGS: Following the intravenous administration of 27.0 mCi of 99m Tc MDP, whole body bone images reveal: 1. Increased tracer uptake is noted in the fourth thoracic vertebra posteriorly, the acromioclavicular compartments of both shoulders, the sternoclavicular compartment of the left shoulder, the bilateral wrists, the patellofemoral and medial tibial compartments of both knees. 2. The remaining skeletal structures are scintigraphically unremarkable with normal-appearing renal images and urinary bladder activity identified. NM/Bone Scan Whole Body IMPRESSION: 1. The increase in radiopharmaceutical concentration identified in the fourth thoracic vertebra, the bilateral shoulders, the right-left wrist and knee articulations bilaterally is commensurate with degenerative arthritis. 2. There is no typical scintigraphic evidence of skeletal metastatic disease on the current examination. Electronically Signed: Turner Nance DO at 8:02 EST ,
== END | disposition home or self-care (01) ==
PROVIDERS: PCP Physician Assistant; Referring Provider Nurse Practitioner Family; Visit Provider Nurse Practitioner Family
DX: M25.511 Pain in right shoulder (principal); M25.529 Pain in unspecified elbow
CPT/HCPCS: 78306; A9503

== ENCOUNTER → 2024-12-06 | Outpatient (CLI) | payer SELFPAY ==
[2024-12-10 14:08] LABS: Vitamin D 1,25-Dihydroxy 42.3 pg/mL (24.8-81.5)
[2024-12-13 14:08] LABS: VITAMIN B6 12.5 ug/L (3.4-65.2)
== END | disposition home or self-care (01) ==
PROVIDERS: PCP Physician Assistant; Referring Provider Psychiatry & Neurology Neurology; Visit Provider Psychiatry & Neurology Neurology
DX: I73.81 Erythromelalgia (principal); R73.9 Hyperglycemia, unspecified
CPT/HCPCS: 36415; 82652; 83036; 84207